=== PATIENT | female | born 1940 | race Caucasian/White ===

== ENCOUNTER 2018-08-24 08:32 | Day surgery (SDC) | payer MEDICARE, OTHER ==
[~2018-08-24] VITALS: Ht 167.6 cm; Wt 97.5 kg
[~2018-08-24 08:32] MED LIST: COL-RITE100 MG PO; COUMADIN7.5 MG PO; ENOXAPARIN100 MG/1 M SUB-Q; FOLTANX TABLET1 EACH PO; FUROSEMIDE80 MG PO; HYDROCODON-ACE1 EA11 PO; IRON159 MG PO; MIRALAX17 GM PO; OXYCODONE HCL5 MG PO; POTASSIUM CHLO20 ME1 PO; VITAMIN C500 M1 PO; VITAMIN D-32000 UNI1 PO; XARELTO10 MG PO
[2018-08-24] MEDS ORDERED: COUMADIN4 MG PO (08:54)
[2018-08-24] MEDS ORDERED: FOLTANX TABLET1 EACH PO (08:57)
--- NOTE | 2018-08-24 10:55 | NUR ---
08/24/18 1055 Joanna Delatorre 1037- PT ARRIVES TO PACU ALERT. PT REPORTS NO PAIN OR NAUSEA. RESP EVEN AND UNLABORED. OXYGEN SAT HIGH 90'S ON 3L VIA NC. 1039- OXYGEN TURNED OFF. OXYGEN SAT MID TO HIGH 90'S ON RA. 1042- PT SITITNG UP IN BED DRINKING WATER. TOELRATING WELL. 1046- DR. REES AT THE BEDSIDE TO TALK WITH THE PT.
--- NOTE | 2018-08-25 11:06 | OR ---
[facility] [address] [place], [place] [address] Signed DATE OF OPERATION: 08/24/2018 SURGEON: Demetri Rees MD PREOPERATIVE DIAGNOSIS: Persistent episodic diarrhea without bleeding. POSTOPERATIVE DIAGNOSES: 1. Mild proctitis. 2. Extensive diverticulosis. PROCEDURE: Total colonoscopy to cecum with biopsy of rectum. ANESTHESIA: Intravenous sedation, fentanyl 100 mcg, Versed 6 mg. Preoperative medication also Ancef 2 g. INDICATION: This 77-year-old white woman is a patient Dr. Georges Chong, last seen in 2003 for colonoscopy. She now has diarrhea without associated bleeding. She has several family members who had recent illness. She has no family history of colon cancer. She does have bilateral knee replacement with episodic swelling. She has been given preoperative antibiotics, Ancef. Additionally, she is on Coumadin for recurrent deep venous thrombosis and bridge therapy has been initiated. She understands the risks of bleeding, infection, and perforation related to colonoscopy and wished to proceed. FINDINGS: The prep was good. Complete colonoscopy was undertaken of the cecum. Passage through the sigmoid was challenging on the basis of extensive diverticulosis, but ultimately was accomplished. Intubation of the cecum was accomplished. There was no sign of polyps, but numerous diverticulitis noted as well as mild proctitis. Biopsy of the rectum was obtained. DESCRIPTION OF PROCEDURE: The patient was brought to the endoscopy suite and placed in lateral decubitus position given intravenous sedation to the point of slurred speech and nystagmus. Digital rectal examination was normal. An Olympus video colonoscope was passed in the rectum and manipulated throughout the Electronically Signed By: DEMETRI REES MD 08/25/18 1106 PATIENT NAME: SILAS HAWK OPERATIVE REPORT DATE OF : 38 REPORT #: [id number] PHYSICIAN: DEMETRI REES MD PCP: GEORGES CHONG MD REPORT IS CONFIDENTIAL AND NOT TO BE RELEASED WITHOUT AUTHORIZATION [facility] [address] [place], [place] [address] Signed colon ultimately intubating the cecum, passed to the sigmoid and left colon was lengthy and challenging on the basis of the diverticulosis. Diverticula were extensive. The scope was withdrawn from the cecum and examination throughout showed no sign of abnormality other than the diverticula until the rectum where mild proctitis was noted. Biopsy was obtained and she does have diarrhea. The scope was withdrawn and removed, and the patient was taken to recovery room in good condition. CONCLUDING DIAGNOSES: 1. Mild proctitis. 2. Diverticulosis. PLAN: Recommend Citrucel 1 tablespoon each day. She will call if persistent symptoms occur or unexpected findings on biopsy are noted. She will otherwise return to the ongoing care of Dr. Chong. MD DIONTE Blanca/VEGA /[id number] cc: Georges Chong MD Copies: GEORGES CHONG MD ~ Electronically Signed By: DEMETRI REES MD 08/25/18 1106 PATIENT NAME: SILAS HAWK OPERATIVE REPORT DATE OF : 38 REPORT #: [id number] PHYSICIAN: DEMETRI REES MD PCP: GEORGES CHONG MD REPORT IS CONFIDENTIAL AND NOT TO BE RELEASED WITHOUT AUTHORIZATION
== END 2018-08-24 11:37 | disposition home or self-care (01) ==
LOC: DS 08:32 → OPS 08:32 → DS 10:30 → OPS 11:37
PROVIDERS: Surgery
PROC: 0DBP8ZX Excision of Rectum, Via Natural or Artificial Opening Endoscopic, Diagnostic (ICD-10-PCS; principal; 2018-08-24 10:30)
DX: K52.9 Noninfective gastroenteritis and colitis, unspecified (principal); K62.89 Other specified diseases of anus and rectum; K57.30 Diverticulosis of large intestine without perforation or abscess without bleeding; E03.9 Hypothyroidism, unspecified; Z79.01 Long term (current) use of anticoagulants; Z79.899 Other long term (current) drug therapy; Z96.653 Presence of artificial knee joint, bilateral
CPT/HCPCS: 88305; 99153; G0500; J0690; J2250; J3010; J7120

== ENCOUNTER 2019-04-06 11:03 | Inpatient (IN) | payer MEDICARE, OTHER ==
[~2019-04-06] VITALS: Ht 167.6 cm; Wt 77.1 kg
--- NOTE | ~2019-04-06 | OR ---
[facility] [address] [facility] [place], [place] [address] Draft DATE OF OPERATION: 04/12/2019 SURGEON: Demetri Rees MD PREOPERATIVE DIAGNOSES: 1. Need for central venous access for TPN. 2. Coagulopathy, elevated ProTime. 3. Severe malnutrition. POSTOPERATIVE DIAGNOSES: 1. Need for central venous access for TPN. 2. Coagulopathy, elevated ProTime. 3. Severe malnutrition. PROCEDURE PERFORMED: Right internal jugular central venous catheterization. ANESTHESIA: 1% lidocaine. 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 A plan for enteral tube feeding was scheduled when it was clear that this lesion is essentially infiltrating and obstructing the ileum which likely accounts for her many months of progressive inability to tolerate oral intake though she shows no sign of jewels bowel obstruction at this time. A plan for a caval filter placement is anticipated on Monday. She has profound nutritional compromise with a pre-albumin of 3.6. She is noted to have persistently elevated ProTime from her prior Coumadin dosing not reversing with withdrawal of the Coumadin. Certainly, because of her underlying malnutrition and lack of development of K-dependent clotting factors. A central venous catheterization is anticipated since there is no availability of a PICC line peripherally. Given her profound anticoagulation, an internal jugular approach is planned. The catheter almost certainly can be used for access for a caval filter which is anticipated on Monday (today is Monday). The risks of bleeding, infection, other unforeseen complications were reviewed with her. She understands and wished to proceed. FINDINGS: Easy access to the right internal jugular vein was noted. Catheter was placed without problem with good function. A postprocedure chest x-ray is pending. PATIENT NAME: SILAS HAWK OPERATIVE REPORT DATE OF : 39 REPORT #: [id number] PHYSICIAN: DEMETRI REES MD PCP: GEORGES CHONG MD REPORT IS CONFIDENTIAL AND NOT TO BE RELEASED WITHOUT AUTHORIZATION [facility] [address] [place], [place] [address] Draft DESCRIPTION OF PROCEDURE: The patient was placed in supine position. Head turned to the left. The right neck prepared with a chlorhexidine solution and draped sterilely. With sterile conditions per hospital protocol, a 1% lidocaine was injected over the right sternocleidomastoid muscle. Using the Seldinger technique, the right internal jugular vein was easily accessed on the 1st pass showing dark nonpulsatile blood. A flexible J-wire was passed down the needle and needle was removed. The site was incised with an #11 blade and dilated with a balloon dilator and a single lumen 7-Greenlandic catheter passed over the wire and the wire removed. Aspiration on the catheter showed dark nonpulsatile blood. It was flushed thereafter with saline. A tubing connector was applied after securing the hub of the catheter with the enclosed nylon suture. A SorbaView dressing was then applied. Clave devices were applied to the tubing and aspiration of dark nonpulsatile blood was noted and easy flushing with saline. A chest x-ray is pending. She tolerated the procedure well. BLOOD LOSS: Minimal. MD DIONTE Balnca/MODL /[id number] cc: Georges Chong MD Copies: GEORGES CHONG MD ~ PATIENT NAME: SILAS HAWK OPERATIVE REPORT DATE OF : 39 REPORT #: [id number] PHYSICIAN: DEMETRI REES MD PCP: GEORGES CHONG MD REPORT IS CONFIDENTIAL AND NOT TO BE RELEASED WITHOUT AUTHORIZATION
--- NOTE | ~2019-04-06 | DS ---
[facility] [address] [place], [place] [address] Draft ADMISSION DATE: 04/06/2019 DISCHARGE DATE: 04/14/2019 REASON FOR ADMISSION: Large pelvic mass, progressive general medical decline. HISTORY OF PRESENT ILLNESS: This 78-year-old white woman presented to the emergency room on April 06, 2019, with 3 weeks of progressive fatigue. It was probably 4 months of progressive the fatigue actually. The patient has had a distant history of deep venous thrombosis and has been chronically anticoagulated with Coumadin. The patient suffered a syncopal episode several weeks ago and broke her femur just above the right knee prosthesis. She was noted also to have some rectal bleeding and anemia. She was transferred to [facility] from [facility] as there was no orthopedic coverage at that time. She has had bilateral knee replacements by Dr. Harsh Herrera. At the time of her presentation to [place], she had noted some gastrointestinal bleeding and certainly some anemia. She required 4 units of packed red cells anticipating repair of the femur. She underwent upper endoscopy by Dr. Royce Alejo showing some healed gastric erosions and a PillCam was then performed, ultimately showing inflammatory changes of the terminal ileum with ulcerations. Colonoscopy was recommended. She returned to [place], transferred to the [facility] for approximately 4 weeks. An outpatient colonoscopy was anticipated. However, she had poor oral intake and unable to tolerate a bowel prep and colonoscopy was never performed. The indication of the colonoscopy was to assess the terminal ileum. She is noted to have had colonoscopy by me in August of this year, which showed only profound diverticulosis and mild inflammation of the rectum. Her presentation to the emergency room at this time was for progressive weakness, poor oral intake, and occasional dark stools, but no actual blood per rectum. She has intermittent nausea and anorexia and occasions of diarrhea, but not profound. Her lab studies were reasonably normal in the emergency room, but unexpected was a CT scan of the abdomen and pelvis, which showed a very large tumor, likely related to the right ovary. Notably, she has had hysterectomy in the distant past (1970s). Additionally, she was noted to have a single hepatic metastasis to the right lobe of the liver and other intraabdominal metastatic lesions including the right periportal area. She was admitted for further evaluation and care. PERTINENT PHYSICAL EXAMINATION: GENERAL: Showed an obese white woman, who is alert and oriented and well supported by family members. PATIENT NAME: SILAS HAWK DISCHARGE SUMMARY DATE OF : 38 REPORT #: [id number] PHYSICIAN: DEMETRI REES MD PCP: GEORGES DORANTES MD REPORT IS CONFIDENTIAL AND NOT TO BE RELEASED WITHOUT AUTHORIZATION [facility] [address] [place], [place] [address] Draft VITAL SIGNS: Temperature 97.7, pulse 80, blood pressure 122/46, and room air saturation 96%. NECK: Shows no jugular venous distention. There is no thyromegaly or cervical adenopathy. CHEST: Clear. HEART: Regular without murmur. ABDOMEN: Obese. There was no initial palpable mass noted, but ultimately a right lower abdominal vague mass is noted. She has no ascites. EXTREMITIES: Lower extremities show obesity, but no sign of swelling. No erythema. She had no tenderness in the right groin and calf. LABORATORY DATA: Lab studies at admission showed a white count of 9.2, hematocrit of 38.0, platelets of 456,000. Potassium 3.5 and creatinine of 0.57. Liver enzymes normal. Urinalysis with protein of 30 and trace ketones. ProTime was 31.8 with an INR of 2.6 (therapeutic anticoagulation with Coumadin). HOSPITAL COURSE: She was admitted given intravenous fluids for clinical dehydration and had much improvement of her sense of well-being. Urine output was good as well. Review of the CT scan confirmed in addition to the pelvic mass and bilateral iliac vein thrombosis. Notably, this was while on anticoagulation with Coumadin. She had no shortness of breath or signs of pulmonary embolism. Given her malignant appearing lesion of the pelvis and metastatic disease, tumor markers were obtained, which showed an elevated CA-125 of 473.5 and elevated CEA 47.44 and normal AFP. Duplex ultrasound was performed confirming iliac vein thrombosis as well as bilateral femoral vein thrombosis. Though she was able to tolerate oral intake, she had a very poor appetite overall. Her pre-albumin was obtained, which was only 3.6 indicating marked nutritional deficiency. Coumadin was withheld anticipating a natural drift to a normal INR. She was given heparin subcutaneously to diminish chances of progression of her thrombosis. It is notable that her ProTime did not return to normal despite withdrawal of her Coumadin, likely indicative of her underlying nutritional deficiencies. A plan was outlined to provide for definitive resection of the mass, tumor debulking under the probability this represents an ovarian carcinoma to allow for optimal debulking and ultimately palliative chemotherapy. The patient and her family were strongly interested in doing whatever is possible to prolong useful life and improve her overall clinical situation mindful that it is not a curable situation particularly. PATIENT NAME: SILAS HAWK DISCHARGE SUMMARY DATE OF : 38 REPORT #: [id number] PHYSICIAN: DEMETRI REES MD PCP: GEORGES DORANTES MD REPORT IS CONFIDENTIAL AND NOT TO BE RELEASED WITHOUT AUTHORIZATION [facility] [address] [place], [place] [address] Draft Consultation was undertaken at [facility] in [facility] with Dr. Palacios, who concurred that placement of a vena cava filter may be of benefit. As the patient is ambulatory, an outpatient procedure was deemed possible. The patient was largely intolerant of adequate oral intake and was maintained in hospitalization anticipating outpatient caval filter placement on Monday, April 15, as had been coordinated with Dr. Hurd scheduling this (fax #[phone]). On that basis, she was maintained in hospitalization with TPN. Reversal of her anticoagulation related to her previous Coumadin dosing was accomplished to an INR of 1.1 (normal) with intravenous vitamin K 10 mg. She was transitioned prior to reversal with therapeutic Lovenox 1 mg/kg subcutaneously every 12 hours. At discharge, her plan is as follows. 1. TPN will be tapered to essentially nothing at midnight. 2. She will be given her Lovenox as scheduled today. 3. She will be n.p.o. after midnight. 4. Her right internal jugular catheter will be hep-locked and available for use by the interventional radiologist if desired tomorrow at caval filter placement. 5. She will continue to eat as able up to midnight. 6. She will transition to a swing bed status today and return tomorrow to the hospital for additional nutritional resuscitation and rehabilitation as needed including physical therapy to diminish her deconditioning and improve her ultimately for operation. 7. Upon return following caval filter placement, we will be considered for ongoing TPN and transitioning to enteral tube feeding to supplement her oral intake, which is inadequate. This might include the placement of a PEG tube to allow for discharge and outpatient management. 8. It is noted that a GI contrast CT was performed 2 days ago, which confirmed the right lower abdominal dominant mass to likely be ovarian, but is contiguous with the terminal ileum and not completely occlusive of it. On that basis, enteral tube feeds may be elemental. It is somewhat unlikely that this represents anything other than an ovarian cancer, though the unlikely possibility of a carcinoid tumor has been considered and a chromogranin A serum blood test is pending. In such a case, resection would still be necessary of course. DISCHARGE DIAGNOSES: 1. Significant clinical dehydration (acute and chronic). 2. Profound nutritional deficiency (prealbumin 3.6). 3. 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 4. Obesity. 5. History of bilateral knee replacement with subsequent right distal femur fracture, PATIENT NAME: SILAS HAWK DISCHARGE SUMMARY DATE OF : 38 REPORT #: [id number] PHYSICIAN: DEMETRI REES MD PCP: GEORGES DORANTES MD REPORT IS CONFIDENTIAL AND NOT TO BE RELEASED WITHOUT AUTHORIZATION [facility] [address] [place], [place] [address] Draft status post repair at [facility] in [place] in 2019. 6. Recurrent deep venous thrombosis with chronic anticoagulation. Subsequent development of extensive iliac and femoral venous thrombosis without known pulmonary embolism while anticoagulated with Coumadin. MD DIONTE Blanca/MODL /[id number] cc: [facility] MD Deon Nova MD Jonathan Hitzman, MD Copies: PRETTY HERRERA MD, KIRK PITEO, BRIAN DO HITZMAN, JONATHAN MD ~ PATIENT NAME: SILAS HAWK DISCHARGE SUMMARY DATE OF : 38 REPORT #: [id number] PHYSICIAN: DEMETRI REES MD PCP: GEORGES DORANTES MD REPORT IS CONFIDENTIAL AND NOT TO BE RELEASED WITHOUT AUTHORIZATION
[~2019-04-06 11:03] MED LIST changes: +COUMADIN4 MG PO; +FERROUS SULFAT325 MG PO; +PANTOPRAZOLE SO40 MG PO; +WARFARIN SODIUM1 MG PO
--- NOTE | 2019-04-06 17:21 | NUR ---
REPORT RECEIVED FROM JOHN HERNANDEZ. PT ARRIVED TO ROOM 123. PT ALERT AND ORIENTED, VS'S TAKEN. PT DENIES PAIN, SOB AT REST OR NAUSEA. PT ASSESSMENT COMPLETED. CALL LIGHT AND H2O IN REACH. PT DENIES FURTHER NEEDS OR CONCERNS.
--- NOTE | 2019-04-06 22:23 | NUR ---
No c/o pain, L leg warm to touch, pulse strong. Coop with assessment. fluids and call light at bedside
--- NOTE | 2019-04-07 06:10 | HP ---
[facility] [address] [place], [place] [address] Signed ADMISSION DATE: 04/06/2019 REASON FOR ADMISSION: Dehydration, large pelvic mass, and hepatic lesion. HISTORY OF PRESENT ILLNESS: This 78-year-old white woman is well known to me from the past. She last underwent colonoscopy by me in August (August 24, 2018), for episodic diarrhea without bleeding. She was noted to have mild proctitis and extensive diverticulosis. The prep at that time was quite good. Passage to the sigmoid was challenging on the basis of extensive diverticulosis, but it was accomplished and intubation of the cecum was accomplished. There was no evidence of polyps or neoplasm. Since that time, patient has had an episode of syncope resulting in a fall and injury to her left knee, having had right knee replaced in the past by Dr. Harsh Herrera. She [facility] in the [facility] for quite [facility] locally, ultimately being able to be discharged, but having rather poor oral intake, generally speaking. Her primary provider remains Dr. Georges Chong. Her presentation to the emergency room was with increasing weakness, history of apparent gastrointestinal bleeding and a fall previously noted, which was a femoral fracture repaired at [facility]. She notes that her weakness had been increasing since her discharge from the hospital previously. Her appetite had been considered very poor. Prior to her operative repair of her femur fracture in [place], she underwent upper endoscopy by Dr. Ward where she was found to have two healing ulcers. She has been on an iron supplement. A PillCam was taken and findings were uncertain as regards the colon. There was something suspicious enough issue that a colonoscopy was planned. The colonoscopy was not carried out due to patient's inability to tolerate oral bowel prep, however. Her evaluation today included a CT scan of the abdomen and pelvis as her labs were relatively unremarkable. 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 Notably, however, she has had hysterectomy back in the 1970s (Dr. Joseph Kevin). Upon review of her CT scan that I have seen, the amorphous pelvic mass is suggestive of uterus, but with close inspection, shows no cervical component and there is a calcific abnormality in the midportion of it. It is unknown if the PillCam that had been given was actually passed out or could this represent that. The coronal view confirms a relatively large right liver lobe mass with smooth borders, but possible central necrosis. There is no other sign of metastatic lesion to the liver in anyway. The pelvic mass upon review appears to be at the apex of the rectosigmoid, not emanating from within the bowel so far as can be told. There was Electronically Signed By: DEMETRI REES MD 04/07/19 0610 PATIENT NAME: SILAS HAWK HISTORY AND PHYSICAL DATE OF : 38 REPORT #: [id number] PHYSICIAN: DEMETRI REES MD PCP: GEORGES CHONG MD REPORT IS CONFIDENTIAL AND NOT TO BE RELEASED WITHOUT AUTHORIZATION [facility] [address] [place], [place] [address] Signed a fair amount of stool in the rectum that is noted. The interpretation of the CT scan was that of left para-aortic metastatic lymphadenopathy, similar such nodules throughout the abdominal mesentery and peritoneum consistent with metastatic disease, mild right hydroureteronephrosis extending to a large pelvic mass. The lobulated mass is 9.1 cm and in the expected location of the uterus and contiguous with the inferior aspect of the cecum, thought to be either part of a cecal colon cancer or large uterine cancer. Compression of the right external iliac vein is noted and possible femoral vein thrombosis, though not certain. Carcinomatosis is considered likely, given peritoneal findings. At present, patient feels bloated with fullness and without appetite accounting this for her weight loss of more than 50 pounds in the past year. REVIEW OF SYSTEMS: She denies any shortness of breath or chest pain. She is not having pelvic pain, but pelvic fullness. She denies any shortness of breath, but she is somewhat weak. PHYSICAL EXAMINATION: GENERAL: Pleasant white woman looking older than her stated age. She is accompanied by her , son, and other family members. HEENT: Trachea is midline. Mucous membranes are slightly dry. CHEST: Normal respiratory excursion without tachypnea. HEART: Regular without murmur. ABDOMEN: Quite markedly obese as has been the case over many years. She has no clinical evidence of ascites. EXTREMITIES: Show no clubbing, cyanosis, or edema. I do not see stigmata of deep venous thrombosis at this time. LABORATORY STUDIES: Show a white count of 9.2, hematocrit 38, platelets 456,000. Chem profile with a potassium of 3.3, and bilirubin of 0.5. Troponin is less than 0.010. Coag studies showed an INR of 2.3. Urinalysis is abnormal with a urine white cell 15, squames 3+. ASSESSMENT: A large pelvic mass, which was initially interpreted as possibly uterine carcinoma. It is quite unlikely, considered she did have hysterectomy a number of years ago. The possibility of ovarian carcinoma of course remains. The possibility this represents a colonic lesion, though possible, is somewhat unlikely, considering colonoscopy was performed in August, which showed only the diverticular process. Notable is the large right lobe hepatic mass and of course problematic possible peritoneal manifestations of malignancy including carcinomatosis. Electronically Signed By: DEMETRI REES MD 04/07/19 0610 PATIENT NAME: SILAS HAWK HISTORY AND PHYSICAL DATE OF : 38 REPORT #: [id number] PHYSICIAN: DEMETRI REES MD PCP: GEORGES CHONG MD REPORT IS CONFIDENTIAL AND NOT TO BE RELEASED WITHOUT AUTHORIZATION [facility] [address] [place] [facility] [place] [address] Signed As she is clinically dehydrated, I have agreed to admit her to the hospital for rehydration and further testing. This might include a colonoscopy, however, tumor markers may be of great benefit prior to embarking on that undertaking including CA-125, AFP and CEA levels. As she does have elevated white cells in the urine, we will treat "as if" for urinary tract infection as well. I have conferred with Dr. Cox on all of this. Rather than aggressively reverse her anticoagulation, particularly in light of possible iliac vein thrombosis, which is not as of yet proven, we will allow natural drift of her ProTime for the time being. MD DIONTE Blanca/MIKEYL /[id number] cc: MD Dr. James Leija MD Copies: GEORGES CHONG MD, BRIAN DO ~ Electronically Signed By: DEMETRI REES MD 04/07/19 0610 PATIENT NAME: MERRY HAWKINE HISTORY AND PHYSICAL DATE OF : 38 REPORT #: [id number] PHYSICIAN: DEMETRI REES MD PCP: GEORGES CHONG MD REPORT IS CONFIDENTIAL AND NOT TO BE RELEASED WITHOUT AUTHORIZATION
--- NOTE | 2019-04-07 06:50 | NUR ---
up to br, voided and had a formed medium sized bm. Back to bed. Tolerated well, good cms L leg, elevated w pillow. dry non productive cough present at this time, tolerating sips of water, no c/o pain
--- NOTE | 2019-04-07 07:30 | NUR ---
REPORT RECEIVED FROM JOHN GILLETTE. PT RESTING IN BED WITH EYES CLOSED. RESPIRATIONS EVEN AND UNLABORED. BED RAILS UP. CALL LIGHT WITHIN REACH.
--- NOTE | 2019-04-07 08:50 | NUR ---
PATIENT RESTING IN BED. SON IN ROOM. CLEANED FACE AND HANDS. PATIENT MAYBE TAKES A SHOWER LATER. CALL LIGHT WITHIN REACH. NO OTHER NEEDS AT THIS TIME
--- NOTE | 2019-04-07 08:57 | NUR ---
PATIENT RESTING IN BED. PATIENT'S BREAKFAST ORDERED (CLEAR LIQUIDS TRAY). CLEAR ENSURE GIVEN. SON IN ROOM. CALL LIGHT WITHIN REACH. NO OTHER NEEDS AT THIS TIME
--- NOTE | 2019-04-07 09:23 | NUR ---
PATIENT RESTING IN BED. VITAL SIGNS AND I&O DONE. CALL LIGHT WITHIN REACH. NO OTHER NEEDS AT THIS TIME
--- NOTE | 2019-04-07 09:25 | NUR ---
MORNING ASSESSMENT AND MEDICATIONS DUE. PT RESTING IN BED VISITING WITH FAMILY. PT DENIES PAIN BUT REPORTS NAUSEA, SEE MAR FOR MEDICATION GIVEN. ASSESSMENT DONE. PT CONTINUES TO REPORT WEAKNESS. CLEAR ENSURE OFFERED. PT STATES SHE TOOK A SIP AND "ALMOST LOST IT ALL." PT REPORTS NAUSEA EVEN WITH DRINKING WATER. ALTERNATE FLAVOR OF CLEAR ENSURE PROVIDED. PT UPDATED ON PLAN OF CARE. FLU VACCINE GIVEN. PT WATCHING TV AND VISITNG WITH FAMILY. SHOWER OFFERED, PT STATES "MAYBE LATER TODAY." BED RAILS UP. CALL LIGHT WITHIN REACH. FAMILY AT BEDSIDE.
--- NOTE | 2019-04-07 09:38 | NUR ---
PATIENT RESTING IN BED. SON AND RN IN ROOM. VITAL SIGNS AND I&O DONE. CALL LIGHT WITHIN REACH. NO OTHER NEEDS AT THIS TIME
--- NOTE | 2019-04-07 09:49 | NUR ---
PTS SON JENNY REQUESTS TO SPEAK WITH THIS RN ONE ON ONE. JENNY STATES HE HAS CONCERNS FOR HIS MOTHER STATING "I THINK SHE IS REALLY DEPRESSED." JENNY STATE SHE HAS NOT MADE ANY SUICIDAL COMMENTS BUT HAS BEEN THOUGH [facility] RECIENT[facility] AND "PROBABLY NEEDS SOME MEDICATIONS." JENNY STATES HE WAS PLANNING TO TALK TO DR. DORANTES AT THEIR NEXT APPOINTMEN BUT WAS HOPING THIS ISSUE COULD BE ADDRESSED DURING PTS CURRENT HOSPITAL STAY. MD WILL BE UPDATED. PTS SON ALSO STATES THAT THE FAMILY IS "NERVOUS" WAITING TO HEAR "IF THE MASS IS CANCER OR JUST A BENIGN MASS." THERAPUTIC COMMUNICATION USED. MD TO BE UPDATED DURING ROUNDS. JENNY STATES HE IS GREATFUL FOR "OUR TIME" AND STATES ALL HIS QUESTIONS HAVE BEEN ANSWERED.
--- NOTE | 2019-04-07 11:34 | NUR ---
PT UP TO AMBULATE IN DON. PT ABLE TO AMBULATE FROM ROOM TO [facility] ROOM AND BACK TO ROOM. TOLERATED WELL BUT PT IS RELUCANT TO TRY WALKING FARTHER. PT UP TO CHAIR AT THIS TIME. FAMILY AT CHAIRSIDE. CALL LIGHT WITHIN REACH. WATER REFILLED. PT CONTINUES TO REPORT NAUSEA. WILL CONTINUE TO MONITOR.
--- NOTE | 2019-04-07 12:30 | NUR ---
REPORT GIVEN TO JOHN OWENS WHO WILL ASSUME CARE OF PT.
--- NOTE | 2019-04-07 12:43 | EKG ---
[facility] [address] [place], [place] [address] Signed Normal sinus rhythm Inferior infarct , age undetermined Abnormal ECG No previous ECGs available Confirmed by VILLA JOSE DO ([id number]) on 04/07/2019 12:43:44 PM Electronically Signed By: VILLA JOSE DO 04/07/19 1243 PATIENT NAME: SILAS HAWK Electrocardiogram DATE OF : 38 PHYSICIAN: VILLA JOSE DO REPORT #: [id number] REPORT IS CONFIDENTIAL AND NOT TO BE RELEASED WITHOUT AUTHORIZATION
--- NOTE | 2019-04-07 13:00 | NUR ---
PT LYING IN BED WATCHING TV AND VISITING WITH FAMILY. ALERT AND ORIENTED. DISCUSSED POC WITH PT AND FAMILY PRESENT IN ROOM, SON AND DAUGHTER. QUESTIONS ANSWERED. PT DENIES PAIN, NAUSEA, OR OTHER CONCERN AT THIS TIME. ASSESSMENT COMPLETED. CALL LIGHT WITHIN REACH.
--- NOTE | 2019-04-07 13:33 | NUR ---
PATIENT RESTING IN BED. FAMILY IN ROOM. VITAL SIGNS AND I&O DONE.PATIENT DID NOT VOID DURING THIS PERIOD EVEN WHEN SHE WAS ENCOURAGE TO USE THE TOILET. RN NOTIFIED. CALL LIGHT WITHIN REACH. NO OTHER NEEDS AT THIS TIME
--- NOTE | 2019-04-07 16:08 | NUR ---
PT SITTING IN BED AT THIS TIME, RESP EVEN AND NON LABORED. PT DENIES PAIN AND OR NEEDS AT THIS TIME. FAMILY AT BEDSIDE. PERSONAL SUPPLIES AND CALL LIGHT WITHIN REACH.
--- NOTE | 2019-04-07 17:22 | NUR ---
PATIENT RESTING IN BED. VITAL SIGNS AND I&O DONE. CALL LIGHT WITHIN REACH. NO OTHER NEEDS AT THIS TIME
--- NOTE | 2019-04-07 17:42 | NUR ---
PT A&OX3. ON RA. CLEAR LIQ; ENCOURAGE ENSURES-DOESN'T LIKE THEM! 1PA WITH WALKER. D5LR@85. NO SCD'S. DENIES PAIN. +BLOOD IN STOOL. CALLS STAFF APROP.
--- NOTE | 2019-04-07 19:31 | NUR ---
REPORT RECEIVED, PT RESTING IN BED, EYES CLOSED, BREATHS EVEN, UNLABORED, NO NEEDS AT THIS TIME, CALL LIGHT WITHIN REACH.
--- NOTE | 2019-04-07 20:34 | NUR ---
PT ASSISTED TO BATHROOM, 1 PERSON SBA/FWW, TOLERATED WELL. PT WAS INCONTINENT OF SMALL SMEAR, STOOL BLACK/GREEN, PT DENIES ANY LIGHT HEADEDNESS OR DIZZINESS WITH AMBULATION, NO STOMACH DISCOMFORT, PT BACK TO BED, NO C/O PAIN, VSS, I/O COMPLETE, IV FLUIDS INFUSING PER EMAR WNL. FAMILY RESTING IN BED, CALL LIGHT WITHIN REACH.
--- NOTE | 2019-04-07 21:00 | NUR ---
PT RESTING IN BED, ON RA, NO NEEDS AT THIS TIME, WILL RETURN WITH EVENING MEDS, CALL LIGHT WITHIN REACH. IV FLUIDS INFUSING PER EMAR WNL.
--- NOTE | 2019-04-07 22:22 | NUR ---
PT'S IV NOTED TO BE LEAKING, NEW PIV STARTED IN PT'S LATERAL LAC, 20G, PT TOLERATED WELL, GOOD BLOOD RETURN, FLUSHES WELL, CONTINUOUS FLUIDS INFUSING PER EMAR WNL. SCHEDULED MEDS ADMININSTERED, PT RESTING IN BED, ASSESSMENT COMPLETE, LS CLEAR, PT AOX4, PT DENIES ANY PAIN, DENIES NAUSEA, PULSES FELT, PT DENIES ANY NEEDS AT THIS TIME, CALL LIGHT WITHIN REACH. FALL PRECAUTIONS IN PLACE.
--- NOTE | 2019-04-08 02:37 | NUR ---
PT RESTING IN BED, WATCHING TV, NO NEEDS AT THIS TIME, ASSESSMENT COMPLETE, CALL LIGHT WITHIN REACH. FALL PRECAUTIONS IN PLACE. IV FLUIDS INFUSING PER EMAR WNL.
--- NOTE | 2019-04-08 05:00 | NUR ---
PT AOX4, APPROPRIATE, NO C/O PAIN, VSS, ON RA, 1 PERSON SBA/FWW, PT VOIDING WELL. IV FLUIDS INFUSING PER EMAR WNL. PT USES CALL LIGHT APPROPRIATELY. PT RESTED SOME THIS SHIFT, PT INCONTINENT OF SMALL AMOUNT OF STOOL. CLEAR LIQUID DIET, ENCOURAGE CLEAR ENSURES,
--- NOTE | 2019-04-08 06:27 | NUR ---
PT UP TO BATHROOM WITH ASSISTANCE FROM [place] OCT[facility]ER, PT BACK TO BED, SCHEDULED ABX GIVEN, PT C/O NAUSEA, PRN ZOFRAN GIVEN PER EMAR, PT REMAINS RESTING IN BED, NO ACTIVE EMESIS, IV FLUIDS INFUSING PER EMAR WNL. PT'S FAMILY AT BEDSIDE. NO FURTHER NEEDS AT THIS TIME, CALL LIGHT WITHIN REACH. FALL PRECAUTIONS IN PLACE.
--- NOTE | 2019-04-08 07:32 | NUR ---
PT SITTING IN BED AWAKE AT THIS TIME. PT ON RA, RESP EVEN AND NON LABORED. PERSONAL SUPPLIES AND CALL LIGHT WITHIN REACH. NO NEEDS AT THIS TIME.
--- NOTE | 2019-04-08 10:25 | NUR ---
PT STILL SITTING IN BED VISITING WITH FAMILY. PT DENIES PAIN OR NEEDS. IV FLUIDS INFUSING AT THIS TIME. PERSONAL SUPPLIES AND CALL LIGHT WITHIN REACH. NO NEEDS AT THIS TIME.
[2019-04-08] MEDS ORDERED: COUMADIN2.5 MG PO (12:13)
[2019-04-08] MEDS ORDERED: VITAMIN C250 MG PO (14:01)
--- NOTE | 2019-04-08 14:03 | NUR ---
Medications reconciled using pharmacy records and patient interview
--- NOTE | 2019-04-08 14:32 | NUR ---
PATIENT IN BED WATCHING TV, FAMILY IN ROOM. CALL LIGHT IN REACH. NO FURTHER NEEDS AT THIS TIME.
--- NOTE | 2019-04-08 16:08 | NUR ---
DR. REES IN TO SEE PT AT THIS TIME TIME. DR. REES DISCUSSED WITH PT PLAN OF CARE GOING FORWARD. TODAY BILAT US TO BE DONE TO R/O POSSIBILITY OF DVT(S). PT RECEPTIVE TO THIS PLAN. PT AND FAMILY MEMBERS QUESTIONS ANSWERED BY DR. REES RELATED TO CURRENT POSSIBLE CONDITION, PROGNOSIS AND PLAN.
--- NOTE | 2019-04-08 17:47 | NUR ---
A&OX3. ON RA. 1PA WITH LEONARD MARQUES DIET- ENCOURAGE ENSURES. D5LR@85. PT DENIES PAIN. CALLS APPROP.
--- NOTE | 2019-04-08 18:34 | NUR ---
PATIENT IN BED, FAMILY IN ROOM. CALL LIGHT IN REACH. NO FURTHER NEEDS AT THIS TIME.
--- NOTE | 2019-04-08 19:35 | NUR ---
BEDSIDE REPORT RECEIVED FROM JOHN HERNANDEZ. PT EMOTIONAL. FAMILY IN ROOM. QUESTIONS ANSWERED. IVF INFUSING WNL ORDERED. CALL LIGHT IN REACH. NO REQUESTS AT THIS TIME.
--- NOTE | 2019-04-08 21:17 | NUR ---
PT ASSESSMENT COMPLETE. 1PA TO RESTROOM FOR VOID AND SMALL SMEAR DARK STOOL. URGENCY, INCONTINENT IN ATTENDS. IV FLUSHED WNL, IVF INFUSING ORDERED. PT DENIES PAIN. LUNG SOUNDS CLEAR THROUGHOUT ALL LOBES. HR IRREGULAR RHYTHM. PT DENIES SOB, DENIES CHEST PAIN. CALL LIGHT AND PERSONAL SUPPLIES IN REACH.
--- NOTE | 2019-04-08 23:10 | NUR ---
CHECKED ON PT RESTING IN BED WITH EYES CLOSED. BREATHING EQUAL AND UNLABORED. IVF INFUSING WNL ORDERED. LIGHTS OFF IN ROOM.
--- NOTE | 2019-04-09 00:17 | NUR ---
1 PA TO THE BATHROOM AND BACK TO BED USING WALKER. CALL LIGHT IN REACH.
--- NOTE | 2019-04-09 01:10 | NUR ---
PT RESTING IN BED WITH EYES CLOSED. BREATHING EQUAL AND UNLABORED. LIGHTS OFF IN ROOM. CALL LIGHT IN REACH.
--- NOTE | 2019-04-09 03:10 | NUR ---
CHECKED ON PT. RESTING IN BED WITH EYES CLOSED. BREATHING EQUAL AND UNLABORED. RR 18. LIGHTS OFF IN ROOM. CALL LIGHT IN REACH.
--- NOTE | 2019-04-09 03:30 | NUR ---
CALL LIGHT ANSWERED. 1PA WITH FWW FOR VOID AND SMALL BM. PT BACK IN BED. ICE WATER PROVIDED. ASSESSMENT COMPLETE. CSM INTACT BLE, TRACE EDEMA BLE. PT DENIES ANY PAIN IN LEGS, DENIES SOB AND CHEST PAIN. IVF INFUSING WNL ORDERED. CALL LIGHT IN REACH.
--- NOTE | 2019-04-09 05:08 | NUR ---
PT EMOTIONAL AT START OF SHIFT, FAMILY PRESENT IN ROOM. NO PAIN NOTED IN BLE, DENIES SOB, DENIES CHEST PAIN. SENSATION INTACT BLE, TRACE EDEMA BLE. VSS. 1P SBA WITH FWW TO RESTROOM FOR VOIDS, DARK STOOLS. ON RA. USING CALL LIGHT APPROPRIATELY.
--- NOTE | 2019-04-09 06:18 | NUR ---
IN PT ROOM FOR SCHEDULED MEDICATION ADMINISTRATION. PT RESTING IN BED AWAKE. DENIES PAIN. VSS. IV ANTIBIOTIC AND IVF INFUSING WNL ORDERED. CALL LIGHT IN REACH. ICE WATER PROVIDED. PT REFUSES ENSURE AT THIS TIME.
--- NOTE | 2019-04-09 07:36 | NUR ---
PT IN BED, EYES CLOSED, RESP EVEN AND NON LABORED. PT APPEARS COMFORTABLE, NO DISTRESS NOTED. PERSONAL SUPPLIES AND CALL LIGHT WITHIN REACH. NO NEEDS AT THIS TIME.
--- NOTE | 2019-04-09 08:05 | NUR ---
PATIENT UP TO CHAIR FOR BREAKFAST, 1PA FWW.
--- NOTE | 2019-04-09 10:42 | NUR ---
PATIENT IS SIPPING SLOWLY ON FLUIDS.
--- NOTE | 2019-04-09 12:19 | NUR ---
FAMILY IN ROOM VISITING WITH PT AT THIS TIME.
--- NOTE | 2019-04-09 12:50 | NUR ---
SPOKE WITH PATIENT IN ROOM. PRESENT ARE HER ADULT CHILDREN, LORENZA AND JENNY. 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 PATIENT IS TEARFUL WE DISCUSSED HER DIAGNOSIS. WHEN ASKED WHAT SHE WANTS, SHE STATES SHE IS WAITING FOR DR REES TO CALL SOME PEOPLE TO FIND OUT ABOUT A "CLOT FILTER". PATIENT DOES NOT WANT TO STAY AT THE RESIDENTIAL FACILITY AGAIN, WANTS TO GO HOME WHEN IT IS TIME. DAUGHTER IS WORKING ON GETTING AN OK FOR [employer] THROUGH HER EMPLOYER. PATIENTS HAS SOME DEMENTIA AND PATIENT IS WORRIED ABOUT HIM. FAMILY IS HELPING WITH THIS. PATIENT STATES "I'M NOT READY TO GO YET". DISCUSSED THAT SHE DOESN'T HAVE TO MAKE ANY DECISIONS AT THIS TIME. SHE DOES WANT TO GET POA FOR HER KIDS, AND HER DAUGHTER IS GOING TO OBTAIN FORMS. QUESTIONS ANSWERED. WILL CONTINUE TO FOLLOW.
--- NOTE | 2019-04-09 14:38 | NUR ---
PATIENT IN BED WATCHING TV. FAMILY IN ROOM. CALL LIGHT IN REACH. NO FURTHER NEEDS AT THIS TIME.
--- NOTE | 2019-04-09 18:19 | NUR ---
PT A&OX3. DENIES PAIN. ON RA. D5LR@85. CLEAR LIQ DIET; ENCOURAGE ENSURES. 1PA WITH WALKER TO BR. NO SCD'S. POTENTIAL TRANSFER TO [facility] FOR STENT PLACEMENT.
--- NOTE | 2019-04-09 18:30 | NUR ---
PATIENT IN BED WATCHING TV. FAMILY IN ROOM. CALL LIGHT IN REACH. NO FURTHER NEEDS AT THIS TIME.
--- NOTE | 2019-04-09 19:20 | NUR ---
BEDSIDE REPORT RECEIVED FROM JOHN MOREIRA. PT LYING IN BED, HOB ELEVATED. DENIES PAIN. IVF INFUSING WNL ORDERED. FAMILY IN ROOM. CALL LIGHT IN REACH. NO REQUESTS AT THIS TIME.
--- NOTE | 2019-04-09 21:05 | NUR ---
CALL LIGHT ANSWERED, 1PA TO RESTROOM WITH FWW FOR VOID, SMALL SMEAR BLACK LIQUID STOOL. ATTENDS CHANGED. PT BACK IN BED. ASSESSMENT COMPLETE. CSM WNL BLE. PT DENIES PAIN, DENIES SOB. IV FLUSHED WNL AND IVF INFUSING WNL ORDERED. PT WITH DIMINISHED APPETITE, REFUSING FOOD OFFERED, UNABLE TO EAT [employer]AMBURGER BROUGHT BY FAMILY. OUT PATIENT THERAPIST RN TO BRING FRUIT FOR PT. CALL LIGHT IN REACH.
--- NOTE | 2019-04-09 23:50 | NUR ---
CHECKED ON PT. RESTING IN BED WITH EYES CLOSED. RR 18. IVF INFUSING ORDERED. CALL LIGHT IN REACH.
--- NOTE | 2019-04-10 00:29 | NUR ---
CALL LIGHT ANSWERED. 1 PA TO THE BATHROOM USING WALKER AND BACK TO BED. ICE WATER REFILLED. CALL LIGHT IN REACH.
--- NOTE | 2019-04-10 02:33 | NUR ---
CHECKED ON PT. RESTING IN BED WITH EYES CLOSED. BREATHING EQUAL AND UNLABORED. LIGHTS OFF IN ROOM. CALL LIGHT IN REACH.
--- NOTE | 2019-04-10 06:00 | NUR ---
PT ASSESSMENT COMPLETE. VSS. PT DENIES PAIN IN LEGS, DENIES CHEST PAIN AND SOB. SBA WITH FWW TO RESTROOM FOR VOID AND BACK TO BED, SMEAR OF BLACK STOOL IN ATTENDS, CHANGED. PT GIVEN FRESH ICE WATER. DENIES OFFERED FOOD. CALL LIGHT IN REACH. IV ANTIBIOTIC AND IVF INFUSING WNL ORDERED.
--- NOTE | 2019-04-10 06:05 | NUR ---
PT RESTED WELL THIS SHIFT. SBA W FWW TO RESTROOM, QS VOIDS. CONSISTENT BLACK SMEARS OF STOOL IN ATTENDS, CHANGED THROUGHOUT SHIFT. DENIES PAIN IN LOWER EXTREMITIES, CHEST PAIN AND SOB. CSM INTACT BLE, TRACE EDEMA BILATERALLY. GENERALIZED WEAKNESS. IVF INFUSING WNL THROUGHOUT SHIFT. ADVANCED TO REGULAR DIET, ONLY EATING ONE BITE OF CHEESEBURGER. DENIES NAUSEA.
--- NOTE | 2019-04-10 07:58 | NUR ---
BEDSIDE REPORT RECIEVED FROM ROMEL LOPEZ. PT RESTING IN HER BED WITH NO COMPLAINS AT THIS TIME. CALL CORONA WITHIN REACH AND PT APPEARS IN NO DISTRESS.
--- NOTE | 2019-04-10 09:15 | NUR ---
PT WAS INCONT OF STOOL, PT CLEANED AND A FRESH ATTENDS PLACED. COCCYX RED AND SHE WAS TURNED OFF OF IT AND BARRIER CREAM WAS APPLIED. FINE CRACKLES IN THE BASES AND AN IS WAS GIVEN AND INSTRUCTED IN ITS USE, SHE DENIES ANY SOB. PT'S FEET WARM AND PINK AND SHE DENIES ANY PAIN OR NUMBNESS OR TINGLING IN THEM. CALL CJ SAHA.
--- NOTE | 2019-04-10 11:55 | NUR ---
PT ASSISTED TO THE HER CHAIR. SHE USED HER FWW AND A SBA WAS USED, PT APPEARED STEADY AND CONTINUES TO DENIE ANY SOB OR PAIN. PT NOW RESTING IN HER CHAIR AND IS VISITING WITH HER FAMILY.
--- NOTE | 2019-04-10 13:25 | NUR ---
CALL TO RETRIEVE DICTATED TRANSFER SUMMARY # [id number] FOR DR REES, ASKED FOR IT IT BE RUSHED. INFORMED IT IS BEING TRANSCRIBED WE SPEAK AND WILL BE AVAILABLE IN A FEW MINUTES #[id number].
--- NOTE | 2019-04-10 14:20 | NUR ---
PT CONTINUES TO DENIE ANY CP OR SOB WELL ANY OTHER PAIN. PULSES IN HER LEGS APPEARS STRONG AND EQUAL. APPITITE REMAINS VERY POOR AND SHE WAS ENCOUARGED TO EAT OF WHICH SHE IS NOT INTRESTED AND ALSO DECLINES AN ENSURE.
--- NOTE | 2019-04-10 14:33 | NUR ---
PT AMBULATED TO THE BR AND VOIDED A SMALL AMOUNT AND HAD A SMALL BM. SHE HAD SOME NAUSEA UPON RETURNING TO BED AND WAS MEDICATED, SEE EMAR. PT STATES THE NAUSEA IS QUICKLY RESOLVING.
--- NOTE | 2019-04-10 14:44 | NUR ---
DR REES CALLED AND NOTIFIED OF THE PT'S POOR URINE OUTPUT. NEW ORDER RECIEVED, SEE EMAR.
--- NOTE | 2019-04-10 16:36 | NUR ---
FAMILY RECIEVED PHONE CALL FROM [facility] [phone], AT DR BOTELLO'S OFFICE TO DISCUSS SCHEDULING A DATE AND TIME FOR CAVAL FILTER PLACEMENT. FAMILY AGREES TO MONDAY 08. THEY RECIEVED INSTRUCTION FROM [facility] TO ARRIVE AT 0730 TO HAVE LABS DRAWN BEFORE PROCEDURE. ALSO INSTRUCTED TO STOP WARFARIN MONDAY. CALL PLACED TO DR REES AND INFORMED HIM OF CALL AND PLANS. STATES PT WILL BE STAYING TONIGHT AND HE WILL ASSESS HER IN AM DUE TO LOW URINE OUTPUT TODAY. FAMILY AGREES TO PLANS.
--- NOTE | 2019-04-10 18:17 | NUR ---
PT WORKED WITH PHYSICAL THERAPY TODAY AND DENIES ANY PAIN WITH ACTIVITY OR EXERCISE. PT DID HAVE A BOUT OF NAUSEA FOLLOWING WALKING TO THE BR. SHE DENIES ANY SOB, CP OR PAIN IN HER ARMS OR LEGS THIS SHIFT. PT HAS EQUAL PULSES IN HER ARMS AND LEGS, THERE IS +2 LOWER LEG EDEMA NOTED. HER URINE OUTPUT WAS POOR THIS AM AND EARLY AFTERNOON, AN IV BOLUS WAS ORDERED AND GIVEN. HER URINE OUTPUT INCREASED FOLLOWING THE BOULS. PT HAS BEEN INCONT OF BOWELS AND URINE, ATTENDS IN PLACE. PT AMBUULATED AND WAS STEADY WITH A SBA AND THE USE OF A WALKER. PT REMAINS ON D5LR AT 85 ML/HR. HER APITITE REMAINS VERY POOR AND SHE DECLINES AN ENSURE.
--- NOTE | 2019-04-10 19:11 | NUR ---
IN ROOM FOR REPORT, PT IS AWAKE IN BED AND HAS MULTIPLE VISITORS IN THE ROOM AT THIS TIME. SHE DENIES NEEDS. IV IS INFUSING FINE AND CALL LIGHT IS WITHIN REACH.
--- NOTE | 2019-04-10 21:50 | NUR ---
IN ROOM TO ADMINISTER MEDICATIONS AND ASSESS PT. SHE DENIES ANY WARMTH OR PAIN IN LEGS. PT DISCUSSED HER CA DIAGNOSIS AND SADNESS ABOUT IT. SHE TALKED ABOUT HER FAMILY AND GREAT-GRANDBABY ON THE WAY THAT SHE WANTS TO MEET. D5LR IS INFUSING FINE AT 85MLS/HR. SHE HAS ICEWATER AT THE BEDSIDE AND DENIES FURTHER NEEDS. CALL LIGHT IS WITHIN REACH.
--- NOTE | 2019-04-10 23:55 | NUR ---
PT IS RESTING WITH EYES CLOSED, RR IS EVEN AND NONLABORED. CALL LIGHT IS WITHIN REACH AND IV IS INFUSING FINE.
--- NOTE | 2019-04-11 01:32 | NUR ---
PT IS RESTING WITH EYES CLOSED, RESPIRATIONS ARE EVEN AND NONLABORED. CALL LIGHT IS WITHIN REACH AND IV IS INFUSING FINE.
--- NOTE | 2019-04-11 03:29 | NUR ---
PT CALLED TO USE THE RESTROOM. ASSISTED HER 1PA WITH FWW. ATTENDS CHANGED, HELPED PT WIPE, THERE WAS A SMEAR OF DARK GREEN, NO BLOOD NOTED. SHE IS BACK IN BED AT THIS TIME AND DENIES PAIN OR OTHER NEEDS. CALL LIGHT IS CLOSE AND IV IS INFUSING WELL.
--- NOTE | 2019-04-11 05:26 | NUR ---
ASSISTED PT TO THE RESTROOM AND BACK TO BED. SHE DENIES FURTHER NEEDS AT THIS TIME. CALL LIGHT IS CLOSE.
--- NOTE | 2019-04-11 06:17 | NUR ---
IN ROOM TO ADMINISTER ANCEF. PT DENIES NEEDS AT THIS TIME. CALL LIGHT IS WITHIN REACH.
--- NOTE | 2019-04-11 06:20 | NUR ---
PT AMBULATES 1PA WITH FWW. SHE HAS D5LR INFUSING AT 85MLS/HR. SHE IS ON A REGULAR DIET WITH A POOR APPETITE. NO SCDS! SHE WORKS WITH PT AND OT. PT SLEPT WELL LAST NIGHT.
--- NOTE | 2019-04-11 07:42 | NUR ---
PT IS AWAKE RESTING IN BED, DENIES ANY NEEDS, STATES SHE IS NOT HUNGRY THIS AM, NO NAUSEA OR PAIN. CALL LIGHT IN EASY REACH.
--- NOTE | 2019-04-11 08:15 | NUR ---
ASSISTED PT UP TO BATHROOM TO VOID, NOTED INCREASED WEAKNESS AND BECAME INCREASINGLY PALE WITH ACTIVITY. ASSISTED BACK TO BED WITH NAUSEA AND WRETCHING STARTING. ZOFRAN GIVEN, WARM BLANKET, DAUGHTER AT BEDSIDE.
--- NOTE | 2019-04-11 09:16 | NUR ---
Patient has refused breakfast, said she was feeling sick to her stomach. Nurse Notified.
--- NOTE | 2019-04-11 11:00 | NUR ---
PT STATES NAUSEA IS A LITTLE BETTER, HAS NOT EATEN TODAY, NO APPETITE, POOR PO FLUID INTAKE. SEEMS A LITTLE DEPRESSED. AGREED TO ROOM CHANGE WITH A BETTER VIEW. DAUGHTER IN ROOM AND AGREES ITS A GOOD IDEA. MOVED TO ROOM 114.
--- NOTE | 2019-04-11 13:44 | NUR ---
UNABLE TO EAT LUNCH, NO APPETITE, IVF PATENT, PT STATES SHE DOES LIKE NEW ROOM AND A FRIEND HAS STOPPED IN TO VISIT. DENIES ANY NEEDS.
--- NOTE | 2019-04-11 17:13 | NUR ---
PT IS WEAKER TODAY, VERY POOR PO INTAKE, NAUSEA WITH ANY ACTIVITY. IVF PATENT, FAMILY HAS BROUGHT IN SNACKS HOPING TO GET HER EAT A LITTLE. ABD XRAY ORDERED THIS AFTERNOON TO LOOK FOR OBSTRUCTION. PLAN IS STILL TO PROCEED WITH FILTER PLACEMENT ON MONDAY.
--- NOTE | 2019-04-11 18:50 | NUR ---
PT SENT TO X-RAY, IV IN L AC INFILTRATED, RESTARTED USING 22G INTO RAC. IN BED WITH WARM BLANKET FOR COMFORT. IVF PATENT.
--- NOTE | 2019-04-11 20:10 | NUR ---
PT'S VISITOR WALKED BY NURSES STATION ON HER WAY OUT AND SAID PT NEEDS TO USE THE RESTROOM. 1PA WITH FWW TO RESTROOM AND BACK TO BED. PT DENIES FURTHER NEEDS AT THIS TIME. CALL LIGHT IS WITHIN REACH.
--- NOTE | 2019-04-11 21:12 | NUR ---
HS meds med education given. stated understanding/ Coop with assessment, no c/o pain or sob, turns self in bed. Dim lungs sounds at bases,IS at bedside. palpable pedal pulses, 2+ edema LE. No c/o pain. Tolerating fluids, fresh water given IVF infusing, call light at bedside.
--- NOTE | 2019-04-12 01:34 | NUR ---
Resting, no distress, no SOB. turns self in bed. Call light and fluids at bedside
--- NOTE | 2019-04-12 03:05 | NUR ---
Up to br with 1PA and FWW, voided, back to bed, tolerated fair, slight sob with quick recovery noted on return to bed. Denies c/o pain. sats 93%, r20 on return. Call light at bedside
--- NOTE | 2019-04-12 05:23 | NUR ---
PT CURRENTLY RESTING, NO DISTRESS, SOB WITH EXERTION PRESENT AT TIMES. HAS DENIED C/O PAIN. UP TO BR WITH 1PA, VOIDING QS. TOLERATED FAIR. DVT TO LE , PULSES PRESENT, NO C/O LEG PAIN. CALL LIGHT AND FLUIDS AT BEDSIDE. PT TOLERATING SIPS AND SMALL AMOUNTS OF FLUIDS, HAS CARNATION INSTANT BREAKFAST THAT FAMILY BROUIGHT
--- NOTE | 2019-04-12 07:49 | NUR ---
0715: BEDSIDE REPORT RECIEVED FROM NAIN LOPEZ. THE PT IS RESTING IN BED WITH NO COMPLAINTS AT THIS TIME. IV INFUSING D5LR AT 125ML/HR AND THE SITE APPEARS HEALTHY. CALL CORONA WITHIN REACH.
--- NOTE | 2019-04-12 09:35 | NUR ---
PT JUST RETURNED TO BED FOLLOWING BEING UP TO THE CHAIR FOR ABOUT AN HOUR AND A HALF. SHE STATES SHE HAS SOME NAUSEA FOLLOWING THE ACTIVITY WITH MOVING AND THIS IS WHY SHE RETURNED TO BED. PT MEDICATED, SEE EMAR. DR REES TO BEDSIDE SPEAKING WITH THE PT AND HER SON AND DAUGHTER REGARDING HER PLAN. LAKISHA DENIES ANY PAIN OR PROBLEMS OTHER THAN WEAKNESS AND NAUSEA. SEE ASSESSMENT.
--- NOTE | 2019-04-12 10:40 | NUR ---
PT UP TO USE THE BR AND SHE VOIDED AND HELPED BACK TO BED. SHE HAD A BIT OF NAUSEA FOLLOWING THE MOVEMENT WHICH WENT AWAY QUICKLY ONCE SHE WAS BACK TO BED. PT REFUSED TO BE UP TO THE CHAIR DUE TO HER NAUSEA FEELINGS.
--- NOTE | 2019-04-12 11:35 | NUR ---
PT DRINKING HER ORDERED GASTROGRAFIN AT THIS TIME. PT STATES HER NAUSEA IN UNDER CONTROL.
--- NOTE | 2019-04-12 13:39 | NUR ---
PT RESTING IN BED AND CONTINUES TO DENIE ANY PAIN. PT RESUSED TO GET UP TO THE CHAIR AT THIS TIME. PT CONTINUES DRINKING HER GASTROGRAFIN WHICH IS ALMOST GONE.
--- NOTE | 2019-04-12 14:24 | NUR ---
Pt was taken to the x-ray dept by the [facility] for her ordered CT.
--- NOTE | 2019-04-12 15:01 | NUR ---
PT RETURNED FROM CT SCAN, COMPLETED USING THE BATHROOM, PT NOW RESTING IN BED. IV FLUIDS RESUMED.
--- NOTE | 2019-04-12 15:45 | NUR ---
I was called into the pt's room by the pt's daughter who had assisted to the into the BR. The pt had been incont of stool in her depends and her bed. The bedding was changed and blue pad placed on the bed. The pt was finishing up in the BR which she continued to have a large dark colored liquid stool and had also voided in which she missed the hat. Pt was cleaned up and a fresh gown and attends were placed. The pt was assisted back to bed for which she declined to sit up in the chair or at the bedside. The pt has many family members present in the room at this time. Pt continues to denie any pain or other problems other than the loose stools.
--- NOTE | 2019-04-12 17:55 | NUR ---
Pt sleeping at this time.
--- NOTE | 2019-04-12 20:07 | NUR ---
coop with assessment. call light at bedside
--- NOTE | 2019-04-12 20:55 | NUR ---
dr Strange in room to place IJ, permit signed by pt
--- NOTE | 2019-04-12 21:19 | NUR ---
R RADHA PLACED BY DR REES, PROCEDURE EXPLAINED TO PT. PT TOLERATED WELL. CXR FOR PLACEMENT ORDERED. PT AWAKE, WATCHING TV.
--- NOTE | 2019-04-12 21:39 | NUR ---
CXR COMPLETED BY JAYY
--- NOTE | 2019-04-12 21:40 | DS ---
[facility] [address] [facility] [address] [place], [place] [address] Signed ADMISSION DATE: 04/06/2019 DISCHARGE DATE: DATE OF ANTICIPATED DISCHARGE: April 10, 2019. REASON FOR ADMISSION: This 78-year-old white woman presented to the emergency room on April 06, 2019, with 3 weeks of progressive fatigue and so forth. 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 The patient suffered a syncopal episode several weeks ago and broke her femur just above a right knee prosthesis, also having a gastrointestinal bleed and anemia. An upper endoscopy was performed, which showed healed gastric erosions and a PillCam was then performed, which showed some inflammatory change of the terminal ileum, for which colonoscopy was recommended. She underwent repair of the right femur injury and was transferred to a rehabilitation center for about 4 weeks. She has had progressive weakness and poor oral intake, occasional dark stools, but no actual blood per rectum. She was treated with iron replacement therapy. She continues to have intermittent nausea and anorexia. 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 She has had hysterectomy in the distant past. 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 She was admitted by me to general surgical service for further evaluation. 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 It is notable that the patient was fully anticoagulated and her coagulation studies showing therapeutic INR of 2.6. She was admitted for further evaluation and care. PHYSICAL EXAMINATION: GENERAL: Pertinent physical exam shows an obese white woman who is alert and oriented, and well supported by her family members. VITAL SIGNS: Temperature is 97.7, pulse 80, blood pressure 122/46, room air saturation is 96%. NECK: Shows no thyromegaly or cervical adenopathy. She has no jugular venous distention. CHEST: Clear. Electronically Signed By: DEMETRI REES MD 04/12/19 2140 PATIENT NAME: SILAS HAWK DISCHARGE SUMMARY DATE OF : 38 REPORT #: [id number] PHYSICIAN: DEMETRI REES MD PCP: GEORGES DORANTES MD REPORT IS CONFIDENTIAL AND NOT TO BE RELEASED WITHOUT AUTHORIZATION [facility] [address], [place] [address] Signed HEART: Regular without murmur. ABDOMEN: Obese, but soft. There is no palpable mass. No ascites. EXTREMITIES: Show obese lower extremities, but no sign of swelling particularly. No focal tenderness in groin or calf. LABORATORY DATA: Lab studies at admission showed a white count of 9.2, hematocrit 38.0, platelets 456,000. Chem profile; potassium 3.5, creatinine 0.57. Liver enzymes normal. Urinalysis showed urine protein of 30, trace ketones, negative nitrites, white blood cells 15, squames 3+. Admission ProTime 31.8 with an INR of 2.6. HOSPITAL COURSE: She was admitted, given intravenous fluids as she was clinically dehydrated. Review of her CT scan confirmed iliac vein thrombosis. She had no shortness of breath or signs to suggest pulmonary embolism. Fluid resuscitation improved her overall sense of well-being, but she has remained with poor appetite. 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 There is a metastatic lesion to the liver and intraperitoneal nodularity. Consideration was made this would be most likely an ovarian neoplasm as her tumor markers were suggestive of and including a CA-125 of 473.5, CEA of 47.44, and a normal AFP. Duplex ultrasound was performed confirming iliac vein thrombosis as well as bilateral femoral vein thrombosis. She remained with poor appetite overall. In general, plan for exploration of the abdomen, tumor debulking, anticipating palliative chemotherapy. Given her thrombosis occurring even while therapeutically anticoagulated is deemed most likely the propensity of her thrombosis is related primarily to her underlying malignancy. It is admitted that the disease process is incurable, but with palliative intent, the aforementioned plan is deemed reasonable and much desired by the patient and her family. Prior to interventions of any sort, the more proximate hazard to her health is that of potential pulmonary embolism given the extent of thrombotic disease. On that basis, a caval filter is deemed strongly indicated. I did consult with the interventional radiologist on-call, Dr. Ramos Palacios at [facility], who agreed with this idea of caval filter placement. As the patient was Electronically Signed By: DEMETRI REES MD 04/12/192139 PATIENT NAME: SILAS HAWK DISCHARGE SUMMARY DATE OF : 38 REPORT #: [id number] PHYSICIAN: DEMETRI REES MD PCP: GEORGES DORANTES MD REPORT IS CONFIDENTIAL AND NOT TO BE RELEASED WITHOUT AUTHORIZATION [address] [address] Signed ambulatory at her presentation and remains so at this time, an outpatient caval filter placement is deemed a reasonable consideration. Arrangements are being made for outpatient intravenous caval filter placement by Dr. Palacios at the earliest possible opportunity. Subsequent to caval filter placement, plans will then be made for consideration of exploration of the abdomen, tumor debulking, and initiation of palliative chemotherapy. Her current medications will be maintained except for warfarin. These will include vitamin C tablets 250 mg p.o. b.i.d., ferrous sulfate 325 mg one p.o. b.i.d., pantoprazole 40 mg p.o. b.i.d. Her previous dosage of warfarin 1 mg tablet daily is held at this time as it has been for the past few days. Her lab studies on April 10 include a white count of 7.5, hematocrit 32.0, platelets 326,000. Chem profile showing a potassium of 3.2, creatinine of 0.48, GFR greater than 120, calcium of 8.0, glucose of 91. Coag studies showing a ProTime of 35.3 with an INR of 3.1. I have discussed this further with Shimon, the nursing service parts coordinator for Dr. Palacios, and will be faxing this report for his prompt consideration at [phone]. MD DIONTE Blanca/VEGA /[id number] cc: MD Dr. Ramos Leija [facility] Copies: GEORGES DORANTES MD ~ Electronically Signed By: DEMETRI REES MD 04/12/19 2140 PATIENT NAME: SILAS HAWK DISCHARGE SUMMARY DATE OF : 38 REPORT #: [id number] PHYSICIAN: DEMETRI REES MD PCP: GEORGES DORANTES MD REPORT IS CONFIDENTIAL AND NOT TO BE RELEASED WITHOUT AUTHORIZATION
--- NOTE | 2019-04-12 21:56 | NUR ---
MEDICAL RECORD TECHNICIAN ROUNDING NOTE. PT DENIES QUESTIONS OR CONCERNS AT THIS TIME. ICE ADDED TO WATER PER PT'S REQUEST. PT DENIES FURTHER NEEDS AT THIS TIME. CALL LIGHT IN REACH. WHITE BOARD UPDATED.
--- NOTE | 2019-04-12 23:22 | NUR ---
PT'S DAUGHTER CALLED FOR UPDATE, PROVIDED. DENIES FURTHER QUESTIONS AT THIS TIME.
--- NOTE | 2019-04-13 00:32 | NUR ---
RESTING, COMPFORTABLE, NO DISTRESS, DWAIN INFUSING LIPIDS AND TPN, NO ADVERSE REACTION. IVF INFUSING, CALL LIGHT AT BEDSIDE
--- NOTE | 2019-04-13 01:13 | NUR ---
RESTING, DWAIN INFUSING TPN/LIPIDS, TOLERATING WELL, NO N/V, HOB ELEVATED, CALL LIGHT AT BEDSIDE.
--- NOTE | 2019-04-13 03:09 | NUR ---
up to br, voided plus was incontinent of urine and soft stool., skin care done, barrier cream to klaudia area. back to bed, RIJ patent, lipids and TPN infusing. IVF infusing r arm . no c/o pain
--- NOTE | 2019-04-13 04:50 | NUR ---
PT CURRENTLY RESTING, HOB ELEVATED, NO C/O RESP DISTRESS, MILD SOB ON RETURN FROM BR TO BED NOTED. LUNGS CLEAR , OCASSIONAL DRY NON PRODUCTIVE COUGH. PT HAD RIJ IV LINE PLACED BY DR REES. TPN AND LIPIDS INFUSING AT THIS TIME, IVF ON RFA IV SITE, PATENT. TOLERATING SIPS OF FLUIDS, NO N/V, EDEMA OF L ARM AND LE. LEGS ELEVATED, DENIES C/O PAIN. TURNS SELF IN BED, REQUIRES 1PA AND BSC WHEN UP. HAS BEEN INCONTINENT OF URINE AND HAD SEVERAL SMALL LIQUID BMS, BROWN-GREEN COLORED. CALL LIGHT AT BEDSIDE
--- NOTE | 2019-04-13 06:17 | NUR ---
Up to br with 1PA and FWW, voided clear yellow urine and had a med sized semiliquid soft bm. plus was incontinent of urine, attends jordan, barrier cream to klaudia area. Back to bed, tolerated very well this time, on room air. R IJ IV line intact, patent, reinforced with Opsite. Pt decliness sips of water. No n/v. legs elevated. Bruising on R lateral leg healing.
--- NOTE | 2019-04-13 07:41 | NUR ---
0715: REPORT RECIEVED FOR NAIN LOPEZ. PT RESTING IN BED AND SHE DENIES ANY NEW PROBLEMS AND DENIES PAIN. TPN/LIPIDS INFUSING. CALL CORONA WITHIN REACH.
--- NOTE | 2019-04-13 09:06 | NUR ---
PT RESTING IN HER BED WITH FAMILY PRESENT. SHE DENIES PAIN OR ANY NEW PROBLEMS. PT RECIEVING HER ORDERED TPN THROUGH HER IJ WITHOUT DIFFICULTY.
--- NOTE | 2019-04-13 09:36 | NUR ---
PATIENT WALKED WITH PT. PATIENT NOW IN BED WATCHING TV, SON IN ROOM. CALL LIGHT IN REACH. NO FURTHER NEEDS AT THIS TIME. WANTS BED BATH LATER TODAY.
--- NOTE | 2019-04-13 10:38 | NUR ---
DR REES CALLED AND NOTIFIED OF HER LAB RESULTS AND THAT THERE IS NO CBG CHECKS ORDERED. NEW ORDERS GIVEN. PT RESTING IN BED AND DENIES ANY PAIN OR NEW PROBLEMS. SHE STATES SHE JUST FEELS WEAK.
--- NOTE | 2019-04-13 11:03 | NUR ---
D5LR IV DC'D ORDERED.
--- NOTE | 2019-04-13 14:01 | NUR ---
Pt continues to denie any new problems. Pt visiting with her family.
--- NOTE | 2019-04-13 14:12 | NUR ---
PATIENT IN BED, FAMILY IN ROOM. RN IN ROOM. CALL LIGHT IN REACH. NO FURTHER NEEDS AT THIS TIME.
--- NOTE | 2019-04-13 18:08 | NUR ---
PT VISITING WITH HER FAMILY AND DENIES ANY NEW PROBLEMS.
--- NOTE | 2019-04-13 18:34 | NUR ---
PATIENT IN BED WATCHING TV, FAMILY IN ROOM. CALL LIGHT IN REACH. NO FURTHER NEEDS AT THIS TIME.
--- NOTE | 2019-04-13 21:06 | NUR ---
FRONT OFFICE MANAGER ROUNDING NOTE. PRIMARY RN AT BEDSIDE ADMINISTERING MEDICATION AND ASSISTING PT TO THE BATHROOM. PT DENIES QUESTIONS OR CONCERNS AT THIS TIME. WHITE BOARD UPDATED. CALL LIGHT IN REACH.
--- NOTE | 2019-04-13 21:37 | NUR ---
UP TO BR, VOIDED CLEAR YELLOW URIINE, SMEAR OF BM NOTED DURING WIPING, BARRIER CREAM TO HARESH AREA. BACK TO BED 1PA/FWW, INCREASED WEAKNESS OF LE AND SOB NOTED THIS TIME, PT VERY IRRITABLE DURING INTERACTION. C/.O FEELING TIRED, STILL TEARY EYED DUE TO HEALTH SITUATION. LE 2+ EDEMA AT ANKLES AND FEET, 3+ PITTING EDEMA BELOW KNEE TO ANKLES BILAT. BOTH ARMS EDEMATOUS. SL L HANDS INTACT. R IJ PATENT INFUSING TPN. PT TOOK SIPS OF FLUIDS, DENIES N/V. DECLINES TO HAVE LEGS ELEVATED, HOB ELEVATED, COOP WITH ASSESSMENT.
--- NOTE | 2019-04-14 00:59 | NUR ---
CALL LIGHT ANSWERED. 1 SBA TO THE BATHROOM USING WALKER AND BACK TO BED. NEW PULL UPS PROVIDED. ICE WATER REFILLED. NO OTHER NEEDS AT THIS TIME.
--- NOTE | 2019-04-14 01:02 | NUR ---
Resting, eyes closed, no distress, RIJ intact, infusing TPN, call light at bedside
--- NOTE | 2019-04-14 03:16 | NUR ---
RESTING, AWAKES EASILY, NO C/O DISTRESS OR PAIN. R IJ PATENT, IVF TPN INFUSING, LEGS ELEVATED, CALL LIGHT AT BEDSIDE, PT REOISITIONS SELF IN BED
--- NOTE | 2019-04-14 05:47 | NUR ---
PT HAS SLEPT MOST OF THIS SHIFT, UP TO BR WITH 1PA AND FWW. SOB NOTED ON RETURN, EDEMA OF LEGS W/O CHANGES.R CHAO PETERS, TPH INFUSING, PT DENIES C/O PAIN. WAS TEARY EYED AND IRRITABLE AFFECT AT BEGINING OF SHIFT. IMPROVED NOW. TOLERATING FLUIDS, NO N/V.
--- NOTE | 2019-04-14 05:54 | NUR ---
PT UTILIZES CALL LIGHT, REQUESTS TO USE THE BATHROOM. PT ASSISTED TO BATHROOM AND BACK TO BED WITH 1 PA AND FWW. TOLERATED WELL. ICE WATER REFILLED. PT DENIES FURTHER NEEDS. CALL LIGHT IN REACH. PT AGREES TO USE FOR NEEDS.
--- NOTE | 2019-04-14 08:15 | NUR ---
Pt up to bathroom with FWW. Pt up in chair. Pt has generalized weakness. Call light within reach. Encouraged breakfast.
--- NOTE | 2019-04-14 10:27 | NUR ---
PT CONTINUES TO REST IN CHAIR WITH FAMILY IN ROOM.
--- NOTE | 2019-04-14 12:00 | NUR ---
in room to room to talk with patient and family about plan of care. attempting to answer as many questions as possible. awaiting MD arrival for further plan of care.
== END 2019-04-14 12:41 | disposition swing bed (61) | DRG 754 ==
LOC: ED 11:03 → MS 16:25
PROVIDERS: ADMIT Surgery
PROC: 3E02340 Introduction of Influenza Vaccine into Muscle, Percutaneous Approach (ICD-10-PCS; 2019-04-07)
PROC: 02HV33Z Insertion of Infusion Device into Superior Vena Cava, Percutaneous Approach (ICD-10-PCS; principal; 2019-04-12)
DX: C56.9 Malignant neoplasm of unspecified ovary (principal); E43 Unspecified severe protein-calorie malnutrition; C78.7 Secondary malignant neoplasm of liver and intrahepatic bile duct; C79.89 Secondary malignant neoplasm of other specified sites; I82.413 Acute embolism and thrombosis of femoral vein, bilateral; I82.423 Acute embolism and thrombosis of iliac vein, bilateral; C78.4 Secondary malignant neoplasm of small intestine; D50.9 Iron deficiency anemia, unspecified; E66.9 Obesity, unspecified; T45.515A Adverse effect of anticoagulants, initial encounter; R79.1 Abnormal coagulation profile; E86.0 Dehydration; I48.91 Unspecified atrial fibrillation; Z87.11 Personal history of peptic ulcer disease; Z90.710 Acquired absence of both cervix and uterus; Z79.01 Long term (current) use of anticoagulants; Z79.899 Other long term (current) drug therapy; Z68.27 Body mass index [BMI] 27.0-27.9, adult; Z80.41 Family history of malignant neoplasm of ovary
CPT/HCPCS: 36415; 36556; 71045; 74019; 74177; 80048; 80053; 81001; 81241; 82105; 82378; 83735; 84100; 84134; 84484; 85025; 85300; 85303; 85306; 85610; 85613; 85730; 86147; 86304; 86316; 86850; 86900; 86901; 90662; 93005; 93010; 93970; 94760; 97110; 97116; 97162; 97165; 97530; 99285-25; J0690; J1644; J1650; J2405; J3430; J3475; J3480; J7030; J7060; J7120; J7121; Q9967

== ENCOUNTER 2019-04-14 12:41 | Inpatient (IN) | payer MEDICARE, OTHER ==
[~2019-04-14] VITALS: Ht 167.6 cm; Wt 91.6 kg
--- OUTSIDE RECORDS SUMMARY | ~2019-04-14 | XMS | Encounter Summary ---
Demographics + + + | Address | [address] | | | [place] [address] | + + + | Home Phone | | + + + | Preferred Language | Unknown | + + + | Marital Status | | + + + | Mu-Ism Affiliation | 1027 | + + + | Race | Unknown | + + + | Ethnic Group | Unknown | + + + Author + + + | Author | [facility] | | | and [place] | + + + | Organization | [facility] | | | and [place] | + + + | Address | Unknown | + + + | Phone | Unavailable | + + + Support + + + + + | Name | Relationship | Address | Phone | + + + + + | Say Salvador) | ECON | [address] | | | | | [place] | | | | | [address] | | + + + + + | Dakota Lamas | ECON | Unknown | | + + + + + | Hu Rosenberg | ECON | [place] | | + + + + + | Nabil [place] | ECON | Unknown | | | [place] (Claude) | | | | + + + + + Care Team Providers + +------+ + | Care Cut Off Saw Grader Name | Role | Phone | + +------+ + | Sang Chong | PCP | | | MD | | | + +------+ + Reason for Visit + + + | Reason | Comments | + + + | Pre-Procedure | | + + + Encounter Details +--------+ + + + + | Date | Type | Department | Care Team | Description | +--------+ + + + + | 04/10/ | Telephone | [facility] | Shimon Mccartney, | Pre-Procedure | | 2018 | | INTERVENTIONAL | RN | | | | | RADIOLOGY [address] | | | | | | [address] | | | | | | [place] | | | | | | [address] | | | | | | [phone] | | | +--------+ + + + [...] as of this encounter Plan of Treatment +--------+ + + + + | Date | Type | Specialty | Care Team | Description | +--------+ + + + + | 04/15/ | Appointment | Radiology | Shimon Alston | | | 2018 | | | MD [address] | | | | | | [address] | | | | | | [place] [address] | | | | | | [phone] | | | | | | | | +--------+ + + + + documented as of this encounter Visit Diagnoses + + | Diagnosis | + + | Gastrointestinal hemorrhage, unspecified gastrointestinal hemorrhage type - Primary | + + documented in this encounter"
--- OUTSIDE RECORDS SUMMARY | ~2019-04-14 | XMS | Encounter Summary ---
Demographics + + + | Address | [address] | | | [place] [address] | + + + | Home Phone | | + + + | Preferred Language | Unknown | + + + | Marital Status | | + + + | Taoism Affiliation | Unknown | + + + | Race | White | + + + | Ethnic Group | Not or | + + + Author + + + | Author | [facility] | + + + | Organization | [facility] | + + + | Address | Unknown | + + + | Phone | Unavailable | + + + Support + + +---------+ + | Name | Relationship | Address | Phone | + + +---------+ + | Nabil Salvador | ECON | Unknown | | + + +---------+ + Care Team Providers + +------+ + | Care Geophysical Computer Name | Role | Phone | + +------+ + | Sang Chong MD | PCP | | + +------+ + Encounter Details +--------+--------+ + + + | Date | Type | Department | Care Team | Description | +--------+--------+ + + + | 04/09/ | Intake | Transfer Center | | N/A | | 2019 | | [address] | | | | | | [place], | | | | | | [place] [address] | | | +--------+--------+ + + + Social History + +-------+ +--------+------+ | Tobacco Use | Types | Packs/Day | Years | Date | | | | | Used | | + +-------+ +--------+------+ | Former Smoker | | | | | + +-------+ +--------+------+ + +---+---+---+ | Smokeless Tobacco: | | | | | Never Used | | | | + +---+---+---+ + + + | Sex Assigned at [...]
--- OUTSIDE RECORDS SUMMARY | ~2019-04-14 | XMS | Encounter Summary ---
Demographics + + + | Address | [address] | | | [place] [address] | + + + | Home Phone | | + + + | Preferred Language | Unknown | + + + | Marital Status | | + + + | Zoroastrian Affiliation | 1027 | + + + | Race | Unknown | + + + | Ethnic Group | Unknown | + + + Author + + + | Author | [facility] | | | and [place] | + + + | Organization | [facility] | | | and [...] [place] | | | | | [address] | | + + + + + [...] Team Providers + +------+ + | Care Director Of Corporate Communications Name | Role | Phone | + +------+ + | Sang Chong | PCP | | | | | | + +------+ + Reason for Visit + + + | Reason | Comments | + + + | Appointment | schedule Pill Cam | + + + Encounter Details +--------+ + + + + | Date | Type | Department | Care Team | Description | +--------+ + + + + | 01/23/ | Telephone | [facility] | Royce Alejo | Appointment | | 2018 | | GASTROENTEROLOGY | MD [address] | (schedule Pill Cam) | | | | [address] | [address] | | | | | [address] [place] | [place] [address] | | | | | [address] | [phone] | | | | | [phone] | | | +--------+ + + + + Social History + +-------+ +--------+------+ | Tobacco Use | Types | Packs/Day | Years | Date | | | | | Used | | + +-------+ +--------+------+ | Never Smoker | | | | | + [...] | | | | | | [address] | | | | | | [place] [address] | | | | | | [phone] | | | | | | | | +--------+ + + + + documented as of this encounter Visit Diagnoses Not on filedocumented in this encounter"
--- OUTSIDE RECORDS SUMMARY | ~2019-04-14 | XMS | Encounter Summary ---
Demographics + + + | Address | [address] | | | [place] [address] | + + + | Home Phone | | + + + | Preferred Language | Unknown | + + + | Marital Status | | + + + | Mandaeism Affiliation | 1027 | + + + | Race | Unknown | + + + | Ethnic Group | Unknown | + + + Author + + + | Author | [facility] | | | and [place] | + + + | Organization | [facility] | | | and [place] | + + + | Address | Unknown | + + + | Phone | Unavailable | + + + Support + + + + + | Name | Relationship | Address | Phone | + + + + + | Say Salvador) | ECON | [address] | | | | | [place] | | | | | [address] | | + + + + + [...] Team Providers + +------+ + | Care Shale Miner Name | Role | Phone | + +------+ + | Sang Chong | PCP | | | MD | | | + +------+ + Reason for Referral Diagnostic/Screening (Routine) + +--------+ + + + + | Status | Reason | Specialty | Diagnoses / | Referred By | Referred To | | | | | Procedures | Contact | Contact | + +--------+ + + + + | Authorizatio | | Radiology | Diagnoses | Gamaliel, | [address] | | n not | | | | Shimon | Intra Op [address] | | Required | | | Gastrointest | MD Erick | [address] | | | | | inal | [address] | [place], [place] | | | | | hemorrhage, | [place] | [address] | | | | | unspecified | [address] | Phone: | | | | | gastrointest | [place], [place] | [phone] | | | | | inal | [address] | Fax: | | | | | hemorrhage | Phone: | [phone] | | | | | type | [phone] | | | | | | Procedures | Fax: | | | | | | IR Placement | [phone] | | | | | | IVC Filter | | | + +--------+ + + + + Reason for Visit + + + | Reason | Comments | + + + | Pre-Procedure | | + + + Encounter Details +--------+ + + + + | Date | Type | Department | Care Team | Description | +--------+ + + + + | 04/10/ | Telephone | [facility] | Shimon Mccartney, | Pre-Procedure | | 2019 | | INTERVENTIONAL | RN | | | | | RADIOLOGY [address] | | | | | | [address] | | | | | | [place] | | | | | | [address] | | | | | | [phone] | | | +--------+ + + + [...] [address] | | | | | | [address] | | | | | | [place] [address] | | | | | | [phone] | | | | | | | | +--------+ + + + + + +--------+ + + | Name | Priori | Associated Diagnoses | Order Schedule | | | ty | | | + +--------+ + + | IR Placement IVC Filter | Routin | Gastrointestinal | Expected: | | | e | hemorrhage, | 04/10/2019, Expires: | | | | unspecified | 04/10/2020 | | | | gastrointestinal | | | | | hemorrhage type | | + +--------+ + + | CBC with Differential | STAT | Gastrointestinal | Expected: | | | | hemorrhage, | 04/24/2019, Expires: | | | | unspecified | 04/10/2020 | | | | gastrointestinal | | | | | hemorrhage type | | + +--------+ + + | Protime INR | STAT | Gastrointestinal | Expected: | | | | hemorrhage, | 04/24/2019, Expires: | | | | unspecified | 04/10/2020 | | | | gastrointestinal | | | | | hemorrhage type | | + +--------+ + + documented as of this encounter Visit Diagnoses + + | Diagnosis | + + | Gastrointestinal hemorrhage, unspecified gastrointestinal hemorrhage type - Primary | + + documented in this encounter"
--- OUTSIDE RECORDS SUMMARY | ~2019-04-14 | XMS | Encounter Summary ---
Demographics + + + | Address | [address] | | | [place] [address] | + + + | Home Phone | | + + + | Preferred Language | Unknown | + + + | Marital Status | | + + + | Confucianism Affiliation | 1027 | + + + | Race | Unknown | + + + | Ethnic Group | Unknown | + + + Author + + + | Author | [facility] | | | and [place] | + + + | Organization | [facility] | | | and [...] [place] | | | | | [address] | | + + + + + [...] Team Providers + +------+ + | Care Fan Blade Aligner Name | Role | Phone | + +------+ + | Sang Chong | PCP | | | MD | | | + +------+ + Encounter Details +--------+ + + + + | Date | Type | Department | Care Team | Description | +--------+ + + + + | 02/21/ | Anesthesia | [facility] | Oz Zheng | | | 2019 | Event | MED [facility] INTRA OP | DO [address] | | | | | [address] | [address] | | | | | [place] | [place] [address] | | | | | [address] | [phone] | | | | | [phone] | | | +--------+ + + + + Anesthesia Record + + + + + | Procedure Name | Responsible | Anesthesia Start | Anesthesia Stop Time | | | Anesthesiologist | Time | | + + + + + | COLONOSCOPY (N/A | | | | | Rectum) | | | | + + + + + + + | No events on file. | + + +------+ | Meds | +------+ + + + No medications | on file. | + + + + + | No agents on file. | + + + + | No blood administrations on file. | + + + + | No LDAs on file. | + + documented in this encounter Social History + +-------+ +--------+------+ | Tobacco [...] Radiology | Shimon Alston | | | 2019 | | | MD [address] | | | | | | [address] | | | | | | [place] [address] | | | | | | [phone] | | | | | | | | +--------+ + + + + documented as of this encounter Visit Diagnoses Not on filedocumented in this encounter"
--- OUTSIDE RECORDS SUMMARY | ~2019-04-14 | XMS | Encounter Summary ---
Demographics + + + | Address | [address] | | | [place] [address] | + + + | Home Phone | | + + + | Preferred Language | Unknown | + + + | Marital Status | | + + + | Mosque Affiliation | 1027 | + + + | Race | Unknown | + + + | Ethnic Group | Unknown | + + + Author + + + | Author | [facility] | | | and [place] | + + + | Organization | [facility] | | | and [place] | [...] [place] | | | | | [address] | | + + + + + [...] Team Providers + +------+ + | Care Assistant Professor Of Criminal Justice Name | Role | Phone | + [...] | +--------+ + + + + | 02/28/ | Telephone | [facility] | Royce Alejo | Other | | 2019 | | GASTROENTEROLOGY | MD [address] | | | | | [address] | [address] | | | | | [address] [place] | [place] [address] | | | | | [address] | [phone] | | | | | [phone] | | | +--------+ + + + [...] | | | | | | [place] [address] | | | | | | [phone] | | | | | | | | +--------+ + + + + documented as of this encounter Visit Diagnoses Not on filedocumented in this encounter"
--- OUTSIDE RECORDS SUMMARY | ~2019-04-14 | XMS | Encounter Summary ---
Demographics + + + | Address | [address] | | | [place] [address] | + + + | Home Phone | | + + + | Preferred Language | Unknown | + + + | Marital Status | | + + + | Anabaptism Affiliation | 1027 | + + + | Race | Unknown | + + + | Ethnic Group | Unknown | + + + Author + + + | Author | [facility] | | | and Antonioana | + + + | Organization | [facility] | | | and Antonioana [...] [place] | | | | | [address] | | + + + + + [...] Team Providers + +------+ + | Care Spar Finisher Name | Role | Phone | + [...] + + | 04/09/ | Telephone | [facility] | Royce Alejo | Other | | 2019 | | GASTROENTEROLOGY | MD [address] | | | | | [address] [place] | [address] [place] | | | | | [address] | [place] [address] | | | | | [address] | [phone] | | | | | [phone] | | | +--------+ + + + [...] | | | | | [place] [address] | | | | | | [phone] | | | | | | | | +--------+ + + + + documented as of this encounter Visit Diagnoses Not on filedocumented in this encounter"
--- OUTSIDE RECORDS SUMMARY | ~2019-04-14 | XMS | Encounter Summary ---
Demographics + + + | Address | [address] | | | [place] [address] | + + + | Home Phone | | + + + | Preferred Language | Unknown | + + + | Marital Status | | + + + | Amish Affiliation | Unknown | + + + | Race | White | + + + | Ethnic Group | Not or | + + + Author + + + | Author | [facility] | + + + | Organization | [facility] | + + + | Address | Unknown | + + + | Phone | Unavailable | + + + Support + + +---------+ + | Name | Relationship | Address | Phone | + + +---------+ + | Nabil Salvador | ECON | Unknown | | + + +---------+ + Care Team Providers + +------+ + | Care Cardiac Cath Technician Name | Role | Phone | + +------+ + | Sang Chong MD | PCP | | + +------+ + Encounter Details +--------+ + + + + | Date | Type | Department | Care Team | Description | +--------+ + + + + | 04/20/ | Abstract | [facility] | Gautam Walker MD | | | 2018 | | [place] | [address] | | | | | Oculoplastics at | [place], [place] | | | | | Kamila Finley [facility] | [address] | | | | | [address] [facility] | [phone] | | | | | Mailcode: [address] | | | | | | [place], [place] | | | | | | [address] | | | | | | [phone] | | | +--------+ + + + + Social History + +-------+ +--------+------+ | Tobacco Use | Types | Packs/Day | Years | Date | | | | | Used | | + +-------+ +--------+------+ | Never Assessed | | | | | + +-------+ +--------+------+ + + + | Sex Assigned at [...]
--- OUTSIDE RECORDS SUMMARY | ~2019-04-14 | XMS | Encounter Summary ---
Demographics + + + | Address | [address] | | | [place] [address] | + + + | Home Phone | | + + + | Preferred Language | Unknown | + + + | Marital Status | | + + + | Pentecostalism Affiliation | Unknown | + + + | Race | White | + + + | Ethnic Group | Not or | + + + Author + + + | Author | [facility] | + + + | Organization | [facility] | + + + | Address | Unknown | + + + | Phone | Unavailable | + + + Support + + +---------+ + | Name | Relationship | Address | Phone | + + +---------+ + | Nabil Salvador | ECON | Unknown | | + + +---------+ + Care Team Providers + +------+ + | Care Box Sealing Machine Catcher Name | Role | Phone | + +------+ + | Sang Chong MD | PCP | | + +------+ + Encounter Details +--------+ + + + + | Date | Type | Department | Care Team | Description | +--------+ + + + + | 05/11/ | Telephone | [facility] | Gautam Walker MD | | | 2018 | | [place] | [address] | | | | | Oculoplastics at | [place], [place] | | | | | Kamila Finley [facility] | [address] | | | | | [address] [facility] | [phone] | | | | | Mailcode: [address] | | | | | | [place], [place] | | | | | | [address] | | | | | | [phone] | | | +--------+ + + + [...]
--- OUTSIDE RECORDS SUMMARY | ~2019-04-14 | XMS | Clinical Summary ---
Demographics + + + | Address | [address] | | | [place] [address] | + + + | Home Phone | | + + + | Preferred Language | Unknown | + + + | Marital Status | | + + + | Synagogue Affiliation | Unknown | + + + | Race | White | + + + | Ethnic Group | Not or | + + + Author + + + | Author | [facility] | + + + | Organization | [facility] | + + + | Address | Unknown | + + + | Phone | Unavailable | + + + Support + + +---------+ + | Name | Relationship | Address | Phone | + + +---------+ + | Nabil Salvador | ECON | Unknown | | + + +---------+ + Care Team Providers + +------+ + | Care Airline Attendant Name | Role | Phone | + +------+ + | Sang Chong MD | PCP | | + +------+ + Source Comments RONEL is fully live on both [facility] Ambulatory and [facility] InPatient.[facility] Allergies No Known Allergies Medications + + + +---------+------+------+-------+ | Medication | Sig | Dispensed | Refills | Star | End | Statu | | | | | | t | Date | s | | | | | | Date | | | + + + +---------+------+------+-------+ | | Instill 1 drop into | 5 mL | 0 | 10/1 | | Activ | | [id number]-sehoajjzc-p | the left eye three | | | 6/20 | | e | | examethasone | times daily. Use for | | | 18 | | | | (MAXITROL) | 7 days, then | | | | | | | 3.5mg/mL-10,000 | discard | | | | | | | unit/mL-0.1 % | | | | | | | | ophthalmic (eye) | | | | | | | | drops,suspension | | | | | | | + + + +---------+------+------+-------+ | warfarin sodium | Take by mouth. | | 0 | | | Activ | | (COUMADIN ORAL) | | | | | | e | + + + +---------+------+------+-------+ | furosemide 80 mg | Take 80 mg by mouth | | 0 | | | Activ | | oral tablet | once daily. 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 | 05/01/2018 | + + + | Chronic rhinitis | 05/01/2018 | + + + | Deviated septum | 05/01/2018 | + + + Encounters +--------+--------+ + + + | Date | Type | Specialty | Care Team | Description | +--------+--------+ + + + | 04/09/ | Intake | | | N/A | | 2018 | | | | | +--------+--------+ + + + from Last 3 Months Family History + + +------+ + | Medical History | Relation | Name | Comments | + + +------+ + | Heart Disease | Father | | | + + +------+ + + +------+--------+ + | Relation | Name | Status | Comments | + +------+--------+ + | Father | | | | + +------+--------+ + Social History + +-------+ +--------+------+ | [...] recent travel history available. | + + Last Filed Vital Signs Not on file Plan of Treatment + + + + + | Health Maintenance | Due Date | Last Done | Comments | + + + + + | Pneumococcal | | | | | vaccination (1 of 2 | 5 | | | | - PCV13) | | | | + + + + + | Influenza (Flu) | | | | | vaccination (#1) | 9 | | | + + + + + Results Not on filefrom Last 3 Months Insurance + +--------+ +--------+ + +--------+ | Payer | Benefi | Subscriber | Effect | Phone | Address | Type | | | t Plan | ID | weston | | | | | | / | | Dates | | | | | | Group | | | | | | + +--------+ +--------+ + +--------+ | MEDICARE | MEDICA | xxxxxxxxxxx | 07/17/19 | [phone] | [address] | [address] | | | RE A & | | 06-Pre | 1 | [address] | [address] | | | B | | sent | | [place], [place] | | | | | | | | [address] | | + +--------+ +--------+ + +--------+ | COMMERCIAL | INDIVI | [id number] | Effect | | | Indemn | | INDIVIDUAL | DUAL | | weston | | | ity | | | COMMER | | for | | | | | | CIAL | | all | | | | | | | | dates | | | | + +--------+ +--------+ + +--------+ + +--------+ +--------+ + + | Guarantor Name | Accoun | Relation to | Date | Phone | Billing Address | | | t Type | Patient | of | | | | | | | | | | + +--------+ +--------+ + + | Jeanna Salvador | Person | Self [birth year] | [address] | | | al/Fam | | 1941 | [phone] | [place] | | | [place] | | | [address] (Home) | [address] | + +--------+ +--------+ + +"
--- OUTSIDE RECORDS SUMMARY | ~2019-04-14 | XMS | Encounter Summary ---
Demographics + + + | Address | [address] | | | [place] [address] | + + + | Home Phone | | + + + | Preferred Language | Unknown | + + + | Marital Status | | + + + | Advent Affiliation | 1027 | + + + | Race | Unknown | + + + | Ethnic Group | Unknown | + + + Author + + + | Author | [facility] | | | and Antonioana | + + + | Organization | [facility] | | | and [...] [place] | | | | | [address] | | + + + + + [...] Team Providers + +------+ + | Care Certified Optician Name | Role | Phone | + +------+ + | Sang Chong | PCP | | | | | | + +------+ + Reason for Visit + + + | Reason | Comments | + + + | Appointment | colonoscopy | + + + Encounter Details +--------+ + + + + | Date | Type | Department | Care Team | Description | +--------+ + + + + | 02/21/ | Telephone | [facility] | Royce Alejo | Appointment | | 2019 | | MED [facility] INTRA OP | MD [address] | (colonoscopy) | | | | [address] | [address] | | | | | [place] | [place] [address] | | | | | [address] | [phone] | | | | | [phone] | | | +--------+ + + + [...] [place] | | | | | | [place] [address] | | | | | | [phone] | | | | | | | | +--------+ + + + + documented as of this encounter Visit Diagnoses Not on filedocumented in this encounter"
--- OUTSIDE RECORDS SUMMARY | ~2019-04-14 | XMS | Encounter Summary ---
Demographics + + + | Address | [address] | | | [place] [address] | + + + | Home Phone | | + + + | Preferred Language | Unknown | + + + | Marital Status | | + + + | Congregation Affiliation | 1027 | + + + | Race | Unknown | + + + | Ethnic Group | Unknown | + + + Author + + + | Author | [facility] | | | and Antonioana | + + + | Organization | [facility] | | | and Antonioana [...] [place] | | | | | [address] | | + + + + + [...] Team Providers + +------+ + | Care Manager Med Surg Name | Role | Phone | + [...] | Up) | | | | [address] [facility] | [place] | | | | | [place] | [address] | | | | | [address] | | | | | | [phone] | | | +--------+ + + + [...] | | | | | [place] [address] | | | | | | [phone] | | | | | | | | +--------+ + + + + documented as of this encounter Visit Diagnoses Not on filedocumented in this encounter"
--- OUTSIDE RECORDS SUMMARY | ~2019-04-14 | XMS | Encounter Summary ---
Demographics + + + | Address | [address] | | | [place] [address] | + + + | Home Phone | | + + + | Preferred Language | Unknown | + + + | Marital Status | | + + + | Sikh Affiliation | 1027 | + + + | Race | Unknown | + + + | Ethnic Group | Unknown | + + + Author + + + | Author | [facility] | | | and Antonioana | + + + | Organization | [facility] | | | and Antonioana [...] [place] | | | | | [address] | | + + + + + [...] Team Providers + +------+ + | Care Bung Sewer Name | Role | Phone | + +------+ + | Sang Chong | PCP | | | MD | | | + +------+ + Encounter Details +--------+---------+ + + + | Date | Type | Department | Care Team | Description | +--------+---------+ + + + | 02/14/ | Office | [facility] | Deon Barrios, | Periprosthetic | | 2019 | Visit | ORTHOPEDIC SURGERY | [address] | supracondylar | | | | [address] [facility] | [place] [address] | fracture of femur, | | | | [place] | [address] | initial encounter | | | | [address] | | (Primary Dx); S/P | | | | [phone] | | ORIF (open reduction | | | | | | internal fixation) | | | | | | fracture | +--------+---------+ + + + Social History [...] documented as of this encounter Progress Notes Deon Barrios MD - 02/14/2019 1330 PDTPatient returns follow-up open reduction internal fixation of periprosthetic distal femur fracture She is 6 weeks out now and is doing well She comes into full extension Can flex past 90 X-rays show no change in the position or alignment of her hardware or fracture site Impression -healing supracondylar periprosthetic right distal femur fracture We will start advancing weight-bear as tolerated gait Will return in 1 month with x-rays documented in this encounter Plan of Treatment +--------+ + + + + | Date | Type | Specialty | Care Team | Description | +--------+ + + + + | 04/15/ | Appointment | Radiology | Shimon Alston | | | 2018 | | | MD [address] | | | | | | [address] | | | | | | [place] [address] | | | | | | [phone] | | | | | | | | +--------+ + + + + documented as of this encounter Results XR Knee Right 1 [...] + | Librado, Rad Results In - 02/14/2019 1404 PDT XR [...] Periprosthetic supracondylar fracture of femur, initial encounter - Primary | + + | S/P ORIF (open reduction internal fixation) fracture | + + documented in this encounter"
--- OUTSIDE RECORDS SUMMARY | ~2019-04-14 | XMS | Encounter Summary ---
Demographics + + + | Address | [address] | | | [place] [address] | + + + | Home Phone | | + + + | Preferred Language | Unknown | + + + | Marital Status | | + + + | Anabaptist Affiliation | 1027 | + + + | Race | Unknown | + + + | Ethnic Group | Unknown | + + + Author + + + | Author | [facility] | | | and Antonioana | + + + | Organization | [facility] | | | and Antonioana [...] [place] | | | | | [address] | | + + + + + [...] Team Providers + +------+ + | Care Account Receivable Clerk Name | Role | Phone | + +------+ + | Sang Chong | PCP | | | MD | | | + +------+ + Encounter Details +--------+ + + + + | Date | Type | Department | Care Team | Description | +--------+ + + + + | 02/14/ | Hospital | [facility] | Deon Barrios, | Periprosthetic | | 2019 | Encounter | MED CTR DES XRAY | [address] [facility] | supracondylar | | | | [address] [place] | [address] [place] | fracture of femur, | | | | [place], [place] | [address] | initial encounter; | | | | [address] | | S/P ORIF (open | | | | [phone] | | reduction internal | | | [...] | | 0 | | | | [id number]-B1 | mouth Daily. | | | | | | 2 (FOLTANX) 3-35-2 | | | | | | | MG TABS | | | | | | + + + +---------+ + + | | Place 1 drop into | | 0 | 05/01/20 | | | [id number] | the left eye 3 times | [...] | 04/15/ | Appointment | Radiology | [place], [place] | | | 2018 | | | MD [address] | | | | | | [address] | | | | | | [place] [address] | | | | | | [phone] | | | | | | | | +--------+ + + + + documented as of this encounter Procedures + +--------+ [...]
--- OUTSIDE RECORDS SUMMARY | ~2019-04-14 | XMS | Encounter Summary ---
Demographics + + + | Address | [address] | | | [place] [address] | + + + | Home Phone | | + + + | Preferred Language | Unknown | + + + | Marital Status | | + + + | Holiness Affiliation | 1027 | + + + | Race | Unknown | + + + | Ethnic Group | Unknown | + + + Author + + + | Author | [facility] | | | and Antonioana | + + + | Organization | [facility] | | | and Antonioana [...] [place] | | | | | [address] | | + + + + + [...] Team Providers + +------+ + | Care Supervisor Graphite Name | Role | Phone | + +------+ + | Sang Chong | PCP | | | MD | | | + +------+ + Encounter Details +--------+ + + + + | Date | Type | Department | Care Team | Description | +--------+ + + + + | 04/12/ | Telephone | [facility] | Shimon Alston | | | 2019 | | CENTER INTRA OP | MD [address] | | | | | [address] | [address] | | | | | [place], [place] | [place] [address] | | | | | [address] | [phone] | | | | | [phone] | | | +--------+ + + + [...] | | | | | [place] [address] | | | | | | [phone] | | | | | | | | +--------+ + + + + documented as of this encounter Visit Diagnoses Not on filedocumented in this encounter"
--- OUTSIDE RECORDS SUMMARY | ~2019-04-14 | XMS | Encounter Summary ---
Demographics + + + | Address | [address] | | | [place] [address] | + + + | Home Phone | | + + + | Preferred Language | Unknown | + + + | Marital Status | | + + + | Taoist Affiliation | Unknown | + + + | Race | White | + + + | Ethnic Group | Not or | + + + Author + + + | Author | [facility] | + + + | Organization | [facility] | + + + | Address | Unknown | + + + | Phone | Unavailable | + + + Support + + +---------+ + | Name | Relationship | Address | Phone | + + +---------+ + | Nabil Salvador | ECON | Unknown | | + + +---------+ + Care Team Providers + +------+ + | Care Non Destructive Testing Scientist Name | Role | Phone | + +------+ + | Sang Chong MD | PCP | | + +------+ + Encounter Details +--------+---------+ + + + | Date | Type | Department | Care Team | Description | +--------+---------+ + + + | 05/01/ | Office | [facility] | Gautam Walker MD | Neoplasm of | | 2018 | Visit | [facility] | [address] | uncertain behavior | | | | [address] | [address] [place], [place] | of skin of eyelid | | | | [facility] | [address] | (Primary Dx); | | | | Clinic [place], | [phone] | Obstruction of | | | | [place] [address] | | lacrimal canaliculus | | | | [phone] | | of left side; | | [...] and scissors were used to excise a manufacturers service representative p ortion of the mass, and was [...] I have reviewed and edited history and engine emission technician documentation, and performed all elements to above examination documentation. Gautam Walker M.D. Centrifugal Chiller Technician Ophthalmic Facial Plastic and Reconstructive Surgery documented [...] + + | [facility] | [address], [address] | [place] [address] | | | DERMATOPATHOLOGY | [address] [...]
--- OUTSIDE RECORDS SUMMARY | ~2019-04-14 | XMS | Encounter Summary ---
Demographics + + + | Address | [address] | | | [place] [address] | + + + | Home Phone | | + + + | Preferred Language | Unknown | + + + | Marital Status | | + + + | Episcopal Affiliation | 1027 | + + + | Race | Unknown | + + + | Ethnic Group | Unknown | + + + Author + + + | Author | [facility] | | | and Antonioana | + + + | Organization | [facility] | | [...] [place] | | | | | [address] | | + + + + + [...] Team Providers + +------+ + | Care Aircraft Manager Name | Role | Phone | + +------+ + | Sang Chong | PCP | | | | | | + +------+ + Reason for Visit + + + | Reason | Comments | + + + | Procedure | colonoscopy | + + + Encounter Details +--------+ + + + + | Date | Type | Department | Care Team | Description | +--------+ + + + + | 02/12/ | Telephone | [facility] | Royce Alejo | Procedure | | 2019 | | GASTROENTEROLOGY | MD [address] | (colonoscopy) | | | | [address] | [address] [place] | | | | | [address] | [place], [place] [address] | | | | | [address] | [phone] | | | | | [phone] | | | +--------+ + + + [...] [address] | | | | | | [place] [address] | | | | | | [phone] | | | | | | | | +--------+ + + + + documented as of this encounter Visit Diagnoses + + | Diagnosis | + + | Melena - Primary Blood in stool | + + | assistant terminal manager (current) use of anticoagulants Long-term (current) use of anticoagulants | + + | Atrial fibrillation, unspecified type (HCC) | + + | Anemia, unspecified type | + + documented in this encounter"
--- OUTSIDE RECORDS SUMMARY | ~2019-04-14 | XMS | Encounter Summary ---
Demographics + + + | Address | [address] | | | [place] [address] | + + + | Home Phone | | + + + | Preferred Language | Unknown | + + + | Marital Status | | + + + | Nondenominational Affiliation | 1027 | + + + | Race | Unknown | + + + | Ethnic Group | Unknown | + + + Author + + + | Author | [facility] | | | and Antonioana | + + + | Organization | [facility] | | | and Antonioana [...] [place] | | | | | [address] | | + + + + + [...] Team Providers + +------+ + | Care Java Enterprise Architect Name | Role | Phone | + +------+ + | Sang Chong | PCP | | | MD | | | + +------+ + Encounter Details +--------+ + + + + | Date | Type | Department | Care Team | Description | +--------+ + + + + | 03/14/ | Hospital | [facility] | Deon Barrios, | Periprosthetic | | 2019 | Encounter | MED CTR DES XRAY | [address] [facility] | supracondylar | | | | [address] [place] | [address] [place] [address] | fracture of femur, | | | | [place], [place] | [address] | initial encounter; | | | | [address] | | S/P ORIF (open | | | | [phone] | | reduction internal | | | [...] | | 0 | | | | [id number]-T0-[id number] | mouth Daily. | | | | | | 2 (FOLTANX) 3-35-2 | | | | | | | MG TABS | | | | | | + + + +---------+ + + | | Place 1 drop into | | 0 | 05/01/20 | | | [id number] | the left eye 3 times | [...] | 04/15/ | Appointment | Radiology | [place], Sh[place] | | | 2018 | | | MD [address] | | | | | | [address] | | | | | | [place] [address] | | | | | | [phone] | | | | | | | [...] Right 1 - 2 Vw (03/14/2019 13:22 PDT) + + | Specimen | + [...]
--- OUTSIDE RECORDS SUMMARY | ~2019-04-14 | XMS | Clinical Summary ---
Demographics + + + | Address | [address] | | | [place] [address] | + + + | Home Phone | | + + + | Preferred Language | Unknown | + + + | Marital Status | | + + + | Confucianism Affiliation | 1027 | + + + | Race | Unknown | + + + | Ethnic Group | Unknown | + + + Author + + + | Author | [facility] | | | and [place]ana | + + + | Organization | [facility] | | | and [place] | [...] [place] | | | | | [address] | | + + + + + [...] Team Providers + +------+ + | Care Options Advisor Name | Role | Phone | + [...] 0 | | | Activ | | [id number] | mouth Daily. | | | | [...] | 10/1 | | Activ | | [id number] | the left eye 3 times | [...] | Noted Date | +---------+ + | Melena | 02/14/2019 | +---------+ + + + | Overview: Added automatically from request for surgery | | [id number] | + + + + + | jail (current) use of anticoagulants | 02/14/2019 | + + + + + | Overview: Added automatically from request for surgery | | [id number] | + + + + + | Atrial fibrillation, unspecified type | 02/14/2019 | + + + + + | Overview: Added automatically from request for surgery | | [id number] | + + + + + | Anemia, unspecified type | 02/14/2019 | + + + + + | Overview: Added automatically from request for surgery | | [id number] | + + + + + | [...] Appointment (Follow | | 2018 | | | | Up) | +--------+ + + + + | 04/09/ | Telephone | Gastroenterology | SapnaRoyce | Other | | 2019 | | | MD Anton | | [...] | 2018 | Visit | | MD | supracondylar | | [...] | Appointment | | 2018 | | | MD [...] | +--------+ + + + + | 02/04/ | Abstract | Gastroenterology | Kiley, | | | 2018 | | | MD Yoko | | +--------+ + + + + | 01/23/ | Telephone | Gastroenterology | Royce Alejo | Appointment | | 2018 | | | MD Anton | (schedule Pill Cam) | +--------+ + + + + from [...] + + + | Blood Pressure | 140/65 | 01/09/2019835 PDT | + + + + | Pulse | 94 | 01/09/2019835 PDT | + + + + | Temperature | 36.9 C (98.4 F) | 01/09/2019835 PDT | + + + + | Respiratory Rate | 16 | 01/09/2019835 PDT | + + + + | Oxygen Saturation | 96% | 01/09/2019835 PDT | + + + + | Inhaled Oxygen | - | - | | Concentration | | | + + + + | Weight | 97.3 kg (214 lb 8.1 | 01/03/2019423 PDT | | | oz) | | + + + + | Height | 170.2 cm (5' 7") | 01/01/2019954 PDT | + + + + | Body Mass Index | 33.6 | 01/01/2019 0955 PDT | + + + + Plan of Treatment +--------+ + + + + | Date | Type | Specialty | Care Team | Description | +--------+ + + + + | 04/15/ | Appointment | Radiology | Shimon Alston | | | 2018 | | | MD [address] | | | | | | [address] | | | | | | [place] [address] | | | | | | [phone] | | | | | | | | +--------+ + + + + + + + + + | Health [...] + + + | Vaccine: Influenza | | | | | (#1) | 9 | | | + [...] Screw | | [place] | | | [id number] | | [id number]: Qty: 1 | | | MEDICAL - | | | / / | | on 01/02/2019 by Denis, | | | STRRadha | | | | | Deon Shah MD | | | | | | | + +-------+------+ +--------+--------+--------+ | Screw Remy 5x60mm - | Screw | | [place] | | | [id number] | | [id number]: Qty: 1 | | | MEDICAL - | | | / / | | on 01/02/2019 by Denis, | | | STRY | | | | | Deon Shah MD | | | | | | | + +-------+------+ +--------+--------+--------+ | Screw Remy 5x80mm - | Screw | | [place] | | | [id number] | | [id number]: Qty: 2 | | | MEDICAL - | | | / / | | on 01/02/2019 by Denis, | | | STRY | | | | | Deon Shah MD | | | | | | | + +-------+------+ +--------+--------+--------+ | Plate Fem Dist Lat 238mm 10 | | | [place] | | | [id number] | | Hl - [id number]: | | | MEDICAL - | | | / / | | Qty: 1 on 01/02/2019 by | | | STRY | | | | | Deon Barrios MD | | | | | | | + +-------+------+ +--------+--------+--------+ | Screw Remy 5mm 5.0 L34mm - | | | [place] | | | [id number] | | [id number]: Qty: 3 | | | MEDICAL - | | | / / | | on 01/02/2019 by Denis, | | | STRY | | | | | Deon Shah MD | | | | | | | + +-------+------+ +--------+--------+--------+ | Screw Remy 5mm 5.0 L75mm - | | | [place] | | | [id number] | | [id number]: Qty: 2 | | | MEDICAL - | | | / / | | on 01/02/2019 by Denis | | | NKECHI | | | | | Deon Shah MD | | | | | | | + +-------+------+ +--------+--------+--------+ Procedures + +--------+ [...] + + from Last 3 Months Results XR Knee Right 1 - 2 [...] +--------+ +---------+--------+ | MEDICARE | MEDICA | [id number] | 11/15/19 | [phone] | | Medica | | | RE | | 05-Pre | 5 | | re | | | PART A | | sent | | | | | | AND B | | | | | | + +--------+ +--------+ +---------+--------+ | [employer] [place] | [place] | [id number] | | [phone] | | Indemn | | | OF | | 006-Pr | 0 | | ity | | | [place] | | esent | | | | | | MDCR | | | | | | | | SUPPL | | | | | | + +--------+ +--------+ +---------+--------+ | MEDICARE | MEDICA | [id number] | 07/17/19 | [phone] | | Medica [...] | [address] | | | [place] | | 1941 | [phone] | [address] [place] | | | [place] | | | [address] (Home) | [address] | + +--------+ +--------+ + + | SalvadorEmanuelJeanna | Person | Self [birth year] | [address] | | | [place] | | 1941 | [phone] | [address] [place] | | | [place] | | | [address] (Home) | [address] | + +--------+ +--------+ + + Advance Directives Patient has advance care planning documents, and code status on file. For more information, please contact:[facility] [place] [address] + + + + + | Code [...]
--- OUTSIDE RECORDS SUMMARY | ~2019-04-14 | XMS | Encounter Summary ---
Demographics + + + | Address | [address] | | | [place] [address] | + + + | Home Phone | | + + + | Preferred Language | Unknown | + + + | Marital Status | | + + + | Denominational Affiliation | 1027 | + + + | Race | Unknown | + + + | Ethnic Group | Unknown | + + + Author + + + | Author | [facility] | | | and Antonio[place] | + + + | Organization | [facility] | [...] [place] | | | | | [address] | | + + + + + [...] Team Providers + +------+ + | Care Undercover Operator Name | Role | Phone | + +------+ + | Sang Chong | PCP | | | | | | + +------+ + Encounter Details +--------+---------+ + + + | Date | Type | Department | Care Team | Description | +--------+---------+ + + + | 02/06/ | Office | [facility] [place] | Royce Alejo | Melanie (Primary Dx); | | 2018 | Visit | GASTROENTEROLOGY | MD Anton [address] | Anemia, unspecified | | | | [address] | [address] | type | | | | [address] [place] | [place] [address] | | | | | [address] | [phone] | | | | | [phone] | | | +--------+---------+ + + + [...] warfarin for 5 days prior to colonoscopy. Suhas, Charlene Noe RN - 02/06/2019 0830 PDTPatient [...] PDTdocumented in this encounter Plan of Treatment +--------+ + + + + | Date | Type | Specialty | Care Team | Description | +--------+ + + + + | 04/15/ | Appointment | Radiology | Shimon Alston | | | 2018 | | | MD [address] | | | | | | [address] | | | | | | [place] [address] | | | | | | [phone] | | | | | | | | +--------+ + + + + documented as of this encounter Visit Diagnoses + + | Diagnosis | + + | Melena - Primary Blood in stool | + + | Anemia, unspecified type | + + documented in this encounter"
--- OUTSIDE RECORDS SUMMARY | ~2019-04-14 | XMS | Encounter Summary ---
Demographics + + + | Address | [address] | | | [place] [address] | + + + | Home Phone | | + + + | Preferred Language | Unknown | + + + | Marital Status | | + + + | Holiness Affiliation | 1027 | + + + | Race | Unknown | + + + | Ethnic Group | Unknown | + + + Author + + + | Author | [facility] | | | and [place] | + + + | Organization | [facility] | | | and [place] [...] [place] | | | | | [address] | | + + + + + [...] Team Providers + +------+ + | Care Sider Name | Role | Phone | + +------+ + | Sang Chong | PCP | | | MD | | | + +------+ + Encounter Details +--------+---------+ + + + | Date | Type | Department | Care Team | Description | +--------+---------+ + + + | 03/14/ | Office | [facility] | Deon Barrios, | Periprosthetic | | 2019 | Visit | ORTHOPEDIC SURGERY | [address] | supracondylar | | | | [address] [facility] | [place] | fracture of femur, | | | | [place] | [address] | initial encounter | | | | [address] | | (Primary Dx); S/P | | | | [phone] | | ORIF (open reduction | | [...] encounter Progress Notes Deon Barrios MD - 03/14/2019 1330 PDTPatient returns follow up ORIF right supracondylar periprosthetic femur fracture around a TKA She is doing better - she is 10 weeks out now On exam her knee has a comfortable range of motion without difficulty No evidence of infection No instability xrays show increased healing at the fracture site without hardware complication Impression - 10 weeks s/p ORIF right supracondylar periprosthetic femur fracture Will advanced her WBAT Return in one month with xrays 9 :37 PDTdocumented in this encounter Plan of Treatment +--------+ + + + + | Date | Type | Specialty | Care Team | Description | +--------+ + + + + | 04/15/ | Appointment | Radiology | Shimon Alston | | | 2018 | | | MD [address] | | | | | | [address] | | | | | | [place] [address] | | | | | | [phone] | | | | | | | [...] + | Robby Pavon Results In - 03/14/2019 1606 PDT XR [...]
--- OUTSIDE RECORDS SUMMARY | ~2019-04-14 | XMS | Encounter Summary ---
Demographics + + + | Address | [address] | | | [place] [address] | + + + | Home Phone | | + + + | Preferred Language | Unknown | + + + | Marital Status | | + + + | Druze Affiliation | 1027 | + + + | Race | Unknown | + + + | Ethnic Group | Unknown | + + + Author + + + | Author | [facility] | | | and [place] | + + + | Organization | [facility] | | | and [...] [place] | | | | | [address] | | + + + + + [...] Team Providers + +------+ + | Care Sign Language Translator Name | Role | Phone | + +------+ + | Sang Chong | PCP | | | MD | | | + +------+ + Encounter Details +--------+ + + + + | Date | Type | Department | Care Team | Description | +--------+ + + + + | 02/04/ | Abstract | [facility] | Kiley, | | | 2018 | | GASTROENTEROLOGY | MD [address] | | | | | [address] [facility] | [place] | | | | | [address] | [place] [address] | | | | | [address] | | | | | | [phone] | | | +--------+ + + + [...] | | | | | [place] [address] | | | | | | [phone] | | | | | | | | +--------+ + + + + documented as of this encounter Visit Diagnoses Not on filedocumented in this encounter"
[~2019-04-14 12:41] MED LIST changes: +COUMADIN2.5 MG PO; +VITAMIN C250 MG PO
--- NOTE | 2019-04-16 09:42 | HP ---
[facility] [address] [place], [place] [address] Signed ADMISSION DATE: 04/14/2019 REASON FOR ADMISSION: This 78-year-old white woman is a patient Dr. Georges Chong. [facility], and April 14, 2019. She presented to emergency room with many weeks of progressive decline, poor intake orally and not doing well at home following a supracondylar fracture of her femur with prior total knee replacement requiring operative repair in [place] by Dr. Barrios several weeks ago. She was in a chcf for approximately 3 weeks following operation, transition to home but doing poorly with poor oral intake. She had no particular nausea or vomiting, but no appetite and clinical dehydration was noted upon presentation in the emergency room. 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 Her hospitalization revealed in addition an extensive ileofemoral venous thrombosis despite being anticoagulated with Coumadin at therapeutic levels. She was found to have profound nutritional deficiency with a prealbumin of 3.6. She was managed with subcutaneous heparin, subsequently Lovenox and her INR corrected with vitamin K. Anticipating outpatient vena caval filter placement [facility] by Dr. Ramos Palacois. The patient has had a nutritional approach currently to include total parenteral nutrition via the right internal jugular vein, ultimately anticipating transition to enteral tube feeding via PEG tube to allow for discharge an outpatient nutritional recovery, ultimately to undergo laparotomy and resection of the tumor and tumor debulking. She is admitted to swing bed status primarily for continued physical therapy for profound deconditioning as well as enteral support. PERTINENT PHYSICAL EXAM: GENERAL: Pleasant white woman who is somewhat obese overall. She is clinically well hydrated at this time. Trachea is midline. CHEST: Clear. HEART: Regular without murmur. ABDOMEN: Somewhat obese. There is a palpable mass in the right lower abdomen and is nontender. Electronically Signed By: DEMETRI REES MD 04/16/19 0942 PATIENT NAME: SILAS HAWK HISTORY AND PHYSICAL DATE OF : 38 REPORT #: [id number] PHYSICIAN: DEMETRI REES MD PCP: GEORGES CHONG MD REPORT IS CONFIDENTIAL AND NOT TO BE RELEASED WITHOUT AUTHORIZATION [facility] [address] [place], [place] [address] Signed EXTREMITIES: No clubbing, cyanosis, or edema. She shows no stigmata of deep venous thrombosis at this time. LABORATORY STUDIES: Show a white count on 12 April of 7.3, hematocrit 34.8, platelets 347,000. A Chem profile same time showed a creatinine of 0.41. Electrolytes normal. Glucose of 124, calcium 7.7, phosphorus 2.5, magnesium 1.6. Her coag studies on 14 April, show a ProTime of 14.9 with an INR of 1.1. Thrombophilia panel is pending. Chromogranin A assessment is also pending. ASSESSMENT: The patient has significant deconditioning for which physical therapy will be of benefit. She additionally has nutritional deficiencies for which parenteral TPN will be maintained and transitioned to enteral tube feedings is anticipated as well. 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 Additionally, tumor debulking will be undertaken on the likelihood this represents ovarian cancer, ultimately to undergo palliative chemotherapy. Given her advanced age, several discussions have been undertaken with the patient and her family who wish to pursue these aggressive measures, which considering her general high functioning status prior to her more recent illness is considered reasonable. MD DIONTE Blanca/MIKEYL /[id number] cc: Georges Chong MD Copies: GEORGES CHONG MD Electronically Signed By: DEMETRI REES MD 04/16/19 0942 PATIENT NAME: SILAS HAWK HISTORY AND PHYSICAL DATE OF : 38 REPORT #: [id number] PHYSICIAN: DEMETRI REES MD PCP: GEORGES CHONG MD REPORT IS CONFIDENTIAL AND NOT TO BE RELEASED WITHOUT AUTHORIZATION [facility] [address] [place], [place] [address] Signed ~ Electronically Signed By: DEMETRI REES MD 04/16/19 0942 PATIENT NAME: SILAS HAWK HISTORY AND PHYSICAL DATE OF : 38 REPORT #: [id number] PHYSICIAN: DEMETRI REES MD PCP: GEORGES CHONG MD REPORT IS CONFIDENTIAL AND NOT TO BE RELEASED WITHOUT AUTHORIZATION
--- NOTE | 2019-04-30 13:03 | EKG ---
[facility] [address] [place] [address] Signed Atrial fibrillation with rapid ventricular rate with premature ventricular contractions and PVC with aberrant conduction Inferior infarct (cited on or before 06-APR-2019) Abnormal ECG When compared with ECG of 06-APR-2019 11:54, Current undetermined rhythm precludes rhythm comparison, needs review T wave inversion no longer evident in Anterior leads Confirmed by MAYURI GALEANO MD ([id number]) on 04/30/2019 1:02:45 PM Electronically Signed By: MAYURI GALEANO MD 04/30/19 1303 PATIENT NAME: SILAS HAWK Electrocardiogram DATE OF : 38 PHYSICIAN: MAYURI GALEANO MD REPORT #: [id number] REPORT IS CONFIDENTIAL AND NOT TO BE RELEASED WITHOUT AUTHORIZATION
--- NOTE | 2019-05-01 19:14 | EKG ---
[facility] [address] [facility] [place] [address] Signed Atrial fibrillation with rapid ventricular rate Rightward axis Borderline ECG When compared with ECG of 30-APR-2019 09:57, Current undetermined rhythm precludes rhythm comparison, needs review Criteria for Inferior infarct are no longer present Confirmed by MAYURI GALEANO MD ([id number]) on 05/01/2019 7:14:03 PM Electronically Signed By: MAYURI GALEANO MD 05/01/19 1914 PATIENT NAME: SILAS HAWK Electrocardiogram DATE OF : 38 PHYSICIAN: MAYURI GALEANO MD REPORT #: [id number] REPORT IS CONFIDENTIAL AND NOT TO BE RELEASED WITHOUT AUTHORIZATION
[2019-05-07] MEDS ORDERED: OXYCODONE HCL5 MG PO (16:07)
--- NOTE | 2019-05-08 13:31 | OR ---
[facility] [address] [place], [place] [address] Signed DATE OF OPERATION: 04/24/2019 SURGEON: Demetri Rees MD PREOPERATIVE DIAGNOSIS: Need for triple lumen central venous catheter. POSTOPERATIVE DIAGNOSIS: Need for triple lumen central venous catheter. PROCEDURE: Placement of right Arrow blue tip triple-lumen catheter, right internal jugular vein. ANESTHESIA: 1% lidocaine. 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 She has been getting infusional TPN through a right internal jugular vein catheter. She has undergone a right internal jugular approach central venous placement of a caval filter elsewhere. She has peripheral edema and although was improved with diuresis, difficulty was noted for obtaining blood samples for monitoring. On that basis, a triple-lumen catheter on the right side is needed. The risks of bleeding, infection, pneumothorax, and so forth were all reviewed with her. She understands and wished to proceed. FINDINGS: The other catheter was removed without problem. The wire passed down the jugular vein and passage of the triple-lumen catheter showed it to be functional at conclusion. Chest x-ray is pending. DESCRIPTION OF PROCEDURE: With the patient in supine position, the head was turned to the left and the dressing of the previous right internal jugular vein catheter removed. The area was generously prepared with Betadine solution and draped sterilely. Securing sutures from the previous line were removed and a Clave device was applied to the catheter itself and the other tubing discarded. Additional preparation with Betadine was undertaken and sterile draping maintained. An Arrow blue tip triple-lumen catheter kit was used and a flexible J-wire was then passed down the right single-lumen catheter and the catheter removed. Electronically Signed By: DEMETRI REES MD 04/25/19 1626 Electronically Signed By: DEMETRI REES MD 05/08/19 1950 PATIENT NAME: SILAS HAWK OPERATIVE REPORT DATE OF : 38 REPORT #: [id number] PHYSICIAN: DEMETRI REES MD PCP: GEORGES CHONG MD REPORT IS CONFIDENTIAL AND NOT TO BE RELEASED WITHOUT AUTHORIZATION [facility] [address] [place], [place] [address] Signed The site was injected with 1% lidocaine. The previously inspected and irrigated Arrow blue tip triple-lumen catheter was passed down over the wire and the wire removed through the distal port. Clips had artery been applied to the device. Aspiration showed dark nonpulsatile blood through the distal lumen. The distal lumen was flushed. The catheter was withdrawn a bit, placed in an appropriate curl position and secured to the skin with nylon suture. An anti-infective dressing was applied as was a SorbaView dressing. A chest x-ray will be performed to assure the tip of the catheter is in appropriate position. There was no complication. MD DIONTE Blanca/VEGA /[id number] cc: Georges Chong MD Copies: GEORGES CHONG MD ~ Electronically Signed By: DEMETRI REES MD 04/25/19 1626 Electronically Signed By: DEMETRI REES MD 05/08/19 1950 PATIENT NAME: SILAS HAWK OPERATIVE REPORT DATE OF : 38 REPORT #: [id number] PHYSICIAN: DEMETRI REES MD PCP: GEORGES CHONG MD REPORT IS CONFIDENTIAL AND NOT TO BE RELEASED WITHOUT AUTHORIZATION
--- NOTE | 2019-05-08 13:32 | OR ---
[facility] [address] [place], [place] [address] Signed DATE OF OPERATION: 04/27/2019 SURGEON: Demetri Rees MD POSTOPERATIVE DIAGNOSIS: Right internal jugular central venous catheter with TPN, recent febrile episode. POSTOPERATIVE DIAGNOSIS: Right internal jugular central venous catheter with TPN, recent febrile episode. PROCEDURES PERFORMED: 1. Placement of left subclavian Arrow blue tip triple-lumen central venous catheter. 2. Explantation of right internal jugular catheter with culture of tip. ANESTHESIA: 1% lidocaine. INDICATION: This 78-year-old white woman is in a swing bed status, undergoing nutritional resuscitation for what has proven to be a large pelvic mass partially causing obstructive symptoms of her ileum. She has been tolerating enteral feedings via PEG tube to a limited extent, only 30 mL an hour, and still required central venous catheter for TPN. She developed a temperature spike today of 102.4. She is known to have an ileofemoral venous thrombosis, for which she now has a caval filter and continued use of Lovenox. She is undergoing nutritional resuscitation, anticipating tumor debulking in the near future. Given her temperature elevation and the fact that she has had the right internal jugular central venous catheterization for greater than a week, and despite a recent catheter line change, a new central venous catheter was deemed appropriate. The risks of bleeding, infection, pneumothorax were reviewed with her and her . They understand and wished to proceed. FINDINGS: The catheter was placed in left subclavian vein without problem. Dark nonpulsatile blood was noted. She tolerated the procedure well. A postprocedure chest x-ray shows good placement of the catheter without sign of complication. The right internal jugular catheter was removed and the tip sterilely delivered for Gram stain and culture. Note is made of some minimal amount of thrombus in the middle port opening of the catheter. The distal port did not have any thrombus. There were no complications. Electronically Signed By: DEMETRI REES MD 04/28/19 1103 Electronically Signed By: DEMETRI REES MD 05/08/19 1950 PATIENT NAME: SILAS HAWK OPERATIVE REPORT DATE OF : 39 REPORT #: [id number] PHYSICIAN: DEMETRI REES MD PCP: GEORGES CHONG MD REPORT IS CONFIDENTIAL AND NOT TO BE RELEASED WITHOUT AUTHORIZATION [facility] [address] [place], [place] [address] Signed DESCRIPTION OF PROCEDURE: The patient was placed in supine position on her bed with arms at the side. The left and right subclavian areas were prepared with a chlorhexidine solution and draped sterilely. 1% lidocaine was injected in the left infraclavicular space. Using the Seldinger technique with sterile protocol in place (gown, gloves, etc.), the left subclavian vein was easily accessed on single pass with Seldinger technique. Dark nonpulsatile blood was noted. A flexible J-wire was passed down the needle and needle was removed. The site was incised with an #11 blade and dilated with an Arrow blue tip triple-lumen catheter kit dilator device. A previously inspected air-fluid blue tip triple-lumen catheter, which had been flushed, was passed over the wire. The wire was removed. Aspiration on the distal port showed dark nonpulsatile blood. All catheter ports were flushed with sterile saline. The catheter was secured to the skin per ip technology transactions attorney's instructions with the enclosed silk suture on a Pop needle. Anti-infective disk was placed as was a SorbaView dressing. Separately, the right internal jugular dressing was taken down and the securing sutures incised and the catheter carefully withdrawn. Pressure was applied to the puncture site and the tip was kept sterile. This tip was then cut off with sterile scissors into a sterile cup for delivery to the lab for catheter tip culture. In time, Band-Aid was applied to the puncture site. She tolerated both procedures well. MD DIONTE Blanca/MODL /[id number] cc: Georges Chong MD Copies: GEORGES CHONG MD ~ Electronically Signed By: DEMETRI REES MD 04/28/19 1103 Electronically Signed By: DEMETRI REES MD 05/08/19 1950 PATIENT NAME: SILAS HAWK OPERATIVE REPORT DATE OF : 39 REPORT #: [id number] PHYSICIAN: DEMETRI REES MD PCP: GEORGES CHONG MD REPORT IS CONFIDENTIAL AND NOT TO BE RELEASED WITHOUT AUTHORIZATION
== END 2019-05-07 14:40 | disposition home or self-care (01) | DRG 641 ==
LOC: MS 12:41 → CCU 12:41 → MS 05-07 14:40 → CCU 05-07 18:45 → MS 05-07 18:45
PROVIDERS: ADMIT Surgery
PROC: 02HV33Z Insertion of Infusion Device into Superior Vena Cava, Percutaneous Approach (ICD-10-PCS; principal; 2019-04-24)
PROC: 02PYX3Z Removal of Infusion Device from Great Vessel, External Approach (ICD-10-PCS; 2019-04-27)
PROC: 02HV33Z Insertion of Infusion Device into Superior Vena Cava, Percutaneous Approach (ICD-10-PCS; 2019-04-27)
PROC: 30233N1 Transfusion of Nonautologous Red Blood Cells into Peripheral Vein, Percutaneous Approach (ICD-10-PCS; 2019-05-06)
DX: E63.9 Nutritional deficiency, unspecified (principal); I48.19 Other persistent atrial fibrillation; I82.403 Acute embolism and thrombosis of unspecified deep veins of lower extremity, bilateral; C56.9 Malignant neoplasm of unspecified ovary; C78.7 Secondary malignant neoplasm of liver and intrahepatic bile duct; C78.6 Secondary malignant neoplasm of retroperitoneum and peritoneum; D68.51 Activated protein C resistance; E66.9 Obesity, unspecified; D63.0 Anemia in neoplastic disease; E87.70 Fluid overload, unspecified; R50.9 Fever, unspecified; D72.829 Elevated white blood cell count, unspecified; Z79.899 Other long term (current) drug therapy; Z93.1 Gastrostomy status; Z79.01 Long term (current) use of anticoagulants; Z68.31 Body mass index [BMI] 31.0-31.9, adult
CPT/HCPCS: 36415; 36430; 71045; 74018; 74250; 76942; 80048; 80053; 80061; 81001; 82247; 82465; 83615; 83735; 83880; 84100; 84134; 84478; 84484; 84550; 85025; 85032; 85610; 85730; 86850; 86900; 86901; 86920; 87070; 87075; 87205; 93005; 93010; 97110; 97116; 97163; 97165; 97530; 97535; J0131; J0330; J0690; J0692; J0694; J0780; J1100; J1650; J1885; J1940; J1956; J2250; J2405; J2550; J2704; J2795; J3010; J3475; J3480; J7040; J7060; J7120; J7121; P9016

== ENCOUNTER 2019-05-07 14:40 | Inpatient (IN) | payer MEDICARE, OTHER ==
[~2019-05-07] VITALS: Ht 167.6 cm; Wt 96.2 kg
--- OUTSIDE RECORDS SUMMARY | ~2019-05-07 | XMS | Encounter Summary ---
Demographics + + + | Address | [address] | | | [place] [address] | + + + | Home Phone | | + + + | Preferred Language | Unknown | + + + | Marital Status | | + + + | Baptism Affiliation | 1027 | + + + | Race | Unknown | + + + | Ethnic Group | Unknown | + + + Author + + + | Author | [facility] | | | and [place] | + + + | Organization | [facility] | | | and [place] | + + + | Address | Unknown | + + + | Phone | Unavailable | + + + Support + + + + + | Name | Relationship | Address | Phone | + + + + + | Nabil [place] | ECON | Unknown | | | Alpesh (Alpesh) | | | | + + + + + | Say Salvador) | ECON | [address] | | | | | [place] | | | | | [address] | | + + + + + | Dakota Lamas | ECON | Unknown | | + + + + + | Hu Rosenberg | ECON | [place] | | + + + + + Care Team Providers + +------+ + | Care Health Plan Specialist Name | Role | Phone | + +------+ + | Sang Chong | PCP | | | | | | + +------+ + Reason for Visit +--------+ + | Reason | Comments | +--------+ + | Other | | +--------+ + Encounter Details +--------+ + + + + | Date | Type | Department | Care Team | Description | +--------+ + + + + | 04/09/ | Telephone | [facility] | Royce Alejo | Other | | 2019 | | GASTROENTEROLOGY | MD [address] | | | | | [address] | [address] | | | | | [address] | [place] [address] | | | | | [address] | [phone] | | | | | [phone] | | | +--------+ + + + + Social History + +-------+ +--------+------+ | Tobacco Use | Types | Packs/Day | Years | Date | | | | | Used | | + +-------+ +--------+------+ | Former Smoker | | | | | + +-------+ +--------+------+ + + +---------+ + | Alcohol Use | Drinks/We | oz/Week | Comments | | | ek | | | + + +---------+ + | No | | | | + + +---------+ + + + + | Sex Assigned at | Date Recorded | | | | + + + | Not on file | | + + + + + + + | Job Start Date | Occupation | Industry | + + + + | Not on file | Not on file | Not on file | + + + + + + + + | Travel History | Travel Start | Travel End | + + + + + + | No recent travel history available. | + + documented as of this encounter Functional Status + + + + | Functional Status | Response | Date of Assessment | + + + + | Are you deaf or do you have serious | No | 01/09/2019 | | difficulty hearing? | | | + + + + | Are you blind or do you have serious | No | 01/09/2019 | | difficulty seeing, even when wearing | | | | glasses? | | | + + + + | Do you have serious difficulty walking or | Yes | 01/09/2019 | | climbing stairs? (5 years old or older) | | | + + + + | Do you have difficulty dressing or bathing? | Yes | 01/09/2019 | | (5 years old or older) | | | + + + + | Because of a physical, mental, or emotional | Yes | 01/09/2019 | | condition, do you have difficulty doing | | | | errands alone such as visiting a doctor's | | | | office or shopping? [15 years old or | | | | older)] | | | + + + + + + + + | Cognitive Status | Response | Date of Assessment | + + + + | Because of a physical, mental, or emotional | No | 01/09/2019 | | condition, do you have serious difficulty | | | | concentrating, remembering, or making | | | | decisions? (5 years old or older) | | | + + + + documented as of this encounter Plan of Treatment Not on filedocumented as of this encounter Visit Diagnoses Not on filedocumented in this encounter"
--- OUTSIDE RECORDS SUMMARY | ~2019-05-07 | XMS | Encounter Summary ---
Demographics + + + | Address | [address] | | | [place] [address] | + + + | Home Phone | | + + + | Preferred Language | Unknown | + + + | Marital Status | | + + + | Sabianist Affiliation | 1027 | + + + | Race | Unknown | + + + | Ethnic Group | Unknown | + + + Author + + + | Author | [facility] | | | and [place] | + + + | Organization | [facility] | | | and [place] | [...] [place] | | | | | [address] | | + + + + + | Dakota Lamas | ECON | Unknown | | + + + + + | Hu Rosenberg | ECON | [place] | | + + + + + Care Team Providers + +------+ + | Care Editor Farm Journal Name | Role | Phone | + +------+ + | Sang Chong | PCP | | | MD | | | + +------+ + Reason for Referral Diagnostic/Screening (Routine) +--------+--------+ + + + + | Status | Reason | Specialty | Diagnoses / | Referred By | Referred To | | | | | Procedures | Contact | Contact | +--------+--------+ + + + + | Closed | | Radiology | Diagnoses | Gamaliel, | [facility] | | | | | Shimon | Intra Op [address] | | | | | Gastrointest | MD Erick | [address] | | | | | inal | [address] | [place], [place] | | | | | hemorrhage, | [place] | [address] | | | | | unspecified | Randal E | Phone: | | | | | gastrointest | [place], [place] | [phone] | | | | | inal | [address] | Fax: | | | | | hemorrhage | Phone: | [phone] | | | | | type | [phone] | | | | | | Procedures | Fax: | | | | | | IR Placement | [phone] | | | | | | IVC Filter | | | +--------+--------+ + + + + Diagnostic/Screening (Routine) +--------+--------+ + + + + | Status | Reason | Specialty | Diagnoses / | Referred By | Referred To | | | | | Procedures | Contact | Contact | +--------+--------+ + + + + | Closed | | Radiology | Diagnoses | Gamaliel, | [facility] | | | | | | Shimon | Intra Op [address] | | | | | Gastrointest | MD Erick | [address] | | | | | inal | [address] | [place], [place] | | | | | hemorrhage, | [place] | [address] | | | | | unspecified | Randal E | Phone: | | | | | gastrointest | [place], [place] | [phone] | | | | | inal | [address] | Fax: | | | | | hemorrhage | Phone: | [phone] | | | | | type | [phone] | | | | | | Procedures | Fax: | | | | | | IR Placement | [phone] | | | | | | IVC Filter | | | +--------+--------+ + + + + Reason for Visit Diagnostic/Screening (Routine) +--------+--------+ + + + + | Status | Reason | Specialty | Diagnoses / | Referred By | Referred To | | | | | Procedures | Contact | Contact | +--------+--------+ + + + + | Closed | | Radiology | Diagnoses | Gamaliel, | [facility] | | | | | | Shimon | Intra Op [address] | | | | | Gastrointest | MD Erick | [address] | | | | | inal | [address] | [place], [place] | | | | | hemorrhage, | [place]re | [address] | | | | | unspecified | Randal E | Phone: | | | | | gastrointest | [place], [place] | [phone] | | | | | inal | [address] | Fax: | | | | | hemorrhage | Phone: | | | | | | type | [phone] | | | | | | Procedures | Fax: | | | | | | IR Placement | [phone] | | | | | | IVC Filter | | | +--------+--------+ + + + + Encounter Details +--------+ + + + + | Date | Type | Department | Care Team | Description | +--------+ + + + + | 04/15/ | Hospital | [facility] | Shimon Alston | Gastrointestinal | | 2019 | Encounter | CENTER IR INTRA OP | MD Erick [address] | hemorrhage, | | | | [address] | Daysi Calderon | unspecified | | | | [place], [place] | [place] [address] | gastrointestinal | | | | [address] | [phone] | hemorrhage type | | | | [phone] | | | +--------+ + + + [...] + + documented as of this encounter Last Filed Vital Signs + + + + | Vital Sign | Reading | Time Taken | + + + + | Blood Pressure | 132/59 | 04/15/2019 1000 PDT | + + + + | Pulse | 70 | 04/15/2019 1000 PDT | + + + + | Temperature | 36.8 C (98.3 F) | 04/15/2019742 PDT | + + + + | Respiratory Rate | 20 | 04/15/2019924 PDT | + + + + | Oxygen Saturation | 92% | 04/15/2019 1000 PDT | + + + + | Inhaled Oxygen | - | - | | Concentration | | | + + + + | Weight | 87.9 kg (193 lb 12.6 | 04/15/2019742 PDT | | | oz) | | + + + + | Height | 170.2 cm (5' 7") | 04/15/2019742 PDT | + + + + | Body Mass Index | 30.35 | 04/15/2019 0743 PDT | + + + + documented in this encounter Functional Status + + + [...] + + documented as of this encounter Discharge Instructions Instructions Shannon Epps RN - 04/15/2019 Understanding Inferior Vena Cava (IVC) Filter Placement An inferior vena cava (IVC) filter is a small device that can stop blood clots from going u p into the lungs. The inferior vena cava is a large vein in the middle of your body. The dev ice is put in during a short surgery. What isDVT? Veins are the blood vessels that bring oxygen-poor blood back to the heart. A deep vein thr ombosis (DVT) is a blood clot that forms in a vein deep inside the body. In most cases, this clot forms inside one of the deep veins of the thigh or lower leg. DVT is a serious medical condition that can cause swelling, pain, and tenderness in your leg. In some cases, a deep clot in a leg vein can break free and stick in a vessel in the lung. This can cause a blocka ge in the vessel called a pulmonary embolism. Pulmonary embolism can cause severe shortness of breath and even sudden . Why IVC filter placement is done An IVC filter is one method to help prevent pulmonary embolism. Your inferior vena cava (IV C) is the major vein that brings oxygen-poor blood from the lower body back to the heart. Th e heart then pumps the blood to the lungs to turkey picker oxygen. An IVC filter is a small, wiry device. When the filter is placed in your IVC, the blood flows past the filter. The filter c atches blood clots and stops them from moving up to the heart and lungs. This helps to preve nt a pulmonary embolism. It's important to understand that an IVC filter does not protect against DVT. You may still get a DVT. The filter helps to protect you from a life-threatening pulmonary embolism if yo u have a DVT. You might need an IVC filter if you have a DVT or pulmonary embolism, or have had either of these in the past. Your healthcare provider may advise an IVC filter if: You can't take blood thinner medicine You took blood thinner medicine and it didn't work How IVC filter placement is done The procedure is done by an interventional radiologist or a vascular surgeon and a team of specialized nurses. Your healthcare provider will make a small cut (incision) in your groin. This is to reach a major vein leading to the IVC. Your healthcare provider will put a long thin tube (catheter) containing the filter into this vein. Your healthcare provider will use continuous X-rays (fluoroscopy) and move the tube up into the IVC. Your healthcare provider will release the filter into the IVC. The filter will expand and attach itself to the montesinos of your IVC. Risks of IVC filter placement All procedures have risks. The risks of this procedure include: Infection Too much bleeding Allergic reaction Damage to the blood vessel at the insertion site Blockage of blood flow through the vena cava, which can cause leg swelling A filter that travels to the heart or lungs, causing injury or A filter that pierces through the inferior vena cava, causing pain or damage to other or geovanni Problem with placement of the filter Continued risk of a blood clot that travels to the lungs Kidney failure Your risks may vary based on your overall health, the severity of your condition, and other factors. Ask your healthcare provider about which risks apply most to you. Date Last Reviewed: 11/15/201519990012-4632 [employer]. [address] [place] [address], [place] [id number]. All righ ts reserved. This information is not intended as a substitute for professional medical care. Always follow your healthcare professional's instructions. Recovery After Procedural Sedation (Adult) You have been given medicine by vein to make you sleep during your procedure. This may have included both a pain medicine and sleeping medicine. Most of the effects have worn off. But you may still have some drowsiness for the next 6 to 8 hours. Home care Follow these guidelines when you get home: For the next 8 hours, you should be watched by a responsible adult. This person should m malik sure your condition is not getting worse. Don't drink any alcoholfor the next [address], operate dangerous machinery,make important business or personal decisions , or sign legal documentsduring the next 24 hours. Note: Your healthcare provider may tell you not to take any medicine by mouth for pain or s leep in the next 4 hours. These medicines may react with the medicines you were given in the hospital. This could cause a much stronger response than usual. Follow-up care Follow up with your healthcare provider if you are not alert and back to your usual level o f activity within 12 hours. When to seek medical advice Call your healthcare provider right away if any of these occur: Drowsiness gets worse Weakness or dizziness gets worse Repeated vomiting You can't be awakened Date Last Reviewed: 05/03/201619999513-7134 [employer]. [address] [place] [address]. All righ ts reserved. This information is not intended as a substitute for professional medical care. Always follow your healthcare professional's instructions. documented in this encounter Medications at Time of Discharge + + + +---------+ + + | Medication | Sig | Dispensed | Refills | Start | End Date | | | | | | Date | | + + + +---------+ + + | acetaminophen | Take 2 tablets by | 120 | 0 | 01/10/20 | | | (TYLENOL) 325 mg | mouth every 4 hours | tablet | | 19 | | | tablet | as needed for Pain. | | | | | + + + +---------+ + + | Cholecalciferol | Vitamin D3 | | 0 | | | | (VITAMIN D3 PO) | | | | | | + + + +---------+ + + | Docusate Calcium | Stool Softener | | 0 | | | | (STOOL SOFTENER PO) | | | | | | + + + +---------+ + + | Elastic Bandages & | 2 Units by Does not | 2 each | 2 | 09/13/19 | | | Supports (MEDICAL | apply route Daily. | | | 13 | | | COMPRESSION | thigh high or | | | | | | STOCKINGS) MISC | pantyhose style | | | | | | | compression | | | | | | | stocking, 20-30 mm | | | | | | | of mercury | | | | | | | compression. | | | | | + + + +---------+ + + | furosemide (LASIX) | Take 1 tablet by | | 0 | | | | 80 mg tablet | mouth Daily. | | | | | + + + +---------+ + + | HYDROmorphone | Inject 0.4 mg into | | 0 | | | | (DILAUDID) injection | the vein every hour | | | | | | | as needed. | | | | | + + + +---------+ + + | | Take 1 tablet by | | 0 | | | | [id number]-Nokqcgntrvfu-A1-B1 | mouth Daily. | | | | | | 2 (FOLTANX) 3-35-2 | | | | | | | MG TABS | | | | | | + + + +---------+ + + | | Place 1 drop into | | 0 | 10/16/20 | | | vwhdhedn-tnstbclxf-i | the left eye 3 times | | | 18 | | | examethasone | daily. | | | | | | (MAXITROL) 0.1 % | | | | | | | ophthalmic | | | | | | | suspension | | | | | | + + + +---------+ + + | ondansetron | Inject 4 mg into the | | 0 | | | | (ZOFRAN) 2 mg/mL | vein every 6 hours | | | | | | SOLN | as needed. | | | | | + + + +---------+ + + | ondansetron | As needed for | 2 | 0 | 02/13/20 | | | (ZOFRAN) 4 mg tablet | nausea; stop prep; | tablet | | 19 | | | | take 1 tablet; wait | | | | | | | 30 min then resume | | | | | | | prep; repeat 1x prn | | | | | + + + +---------+ + + | pantoprazole | Take 1 tablet by | 30 | 0 | 01/11/20 | | | (PROTONIX) 40 mg | mouth every morning | tablet | | 19 | | | tablet | (before breakfast). | | | | | + + + +---------+ + + | phytonadione | Inject 10 mg under | | 0 | | | | (AQUA-MEPHYTON) 10 | the skin once. | | | | | | MG/ML injection | | | | | | + + + +---------+ + + | POTASSIUM PO | potassium | | 0 | | | + + + +---------+ + + | sodium | Take 177 mLs by | 2 | 0 | 02/12/20 | | | sulfate-potassium | mouth See Admin | Bottle | | 19 | | | sulfate-magnesium | Instructions. Take | | | | | | sulfate (SUPREP | one kit, first dose | | | | | | BOWEL PREP KIT) oral | at 4pm, second dose | | | | | | solution | at 8pm day before | | | | | | | procedure | | | | | + + + +---------+ + + | warfarin | Take 1 mg by mouth | | 0 | 03/19/20 | | | (COUMADIN) 1 mg | Daily. | | | 19 | | | tablet | | | | | | + + + +---------+ + + | warfarin | Take 1 tablet by | | 0 | | | | (COUMADIN) 4 MG | mouth Daily. | | | | | | tablet | | | | | | + + + +---------+ + + documented as of this encounter Progress Notes Shannon Epps RN - 04/15/2019 1013 PDTPt arrived at hospital with IJ in place and PIV in place. Per pt and family request, IJ and PIV will remain in place. Pt has been using it fo r IJ for TPN and IV access is difficult. Pt daughter advised me that [facility] Pt has a swing bed there. Shannon Epps RN hShannon holcomb RN - 03/19 0936 PDTDischarge instructions given to patient and family. Patient vitals WNL. Odilia ent in no apparent distress. All questions have been answered. Discussed signs and symptom s of surgical site infection, DVT and PE prevention. No prescriptions given. Shannon Epps RN documented in this encoun ter Plan of Treatment Not on filedocumented as of this encounter Procedures + +--------+ + + + | Procedure Name | Priori | Date/Time | Associated Diagnosis | Comments | | | ty | | | | + +--------+ + + + | IR PLACEMENT IVC | Routin | 04/15/2019 | Gastrointestinal | Results for this | | FILTER | e | 9:46 PDT | hemorrhage, | procedure are in the | | | | | unspecified | results section. | | | | | gastrointestinal | | | | | | hemorrhage type | | + +--------+ + + + | PTT | STAT | 04/15/2019 | | Results for this | | | | 8:16 PDT | | procedure are in the | | | | | | results section. | + +--------+ + + + | PROTIME INR | STAT | 04/15/2019 | | Results for this | | | | 8:16 PDT | | procedure are in the | | | | | | results section. | + +--------+ + + + | CBC WITH | STAT | 04/15/2019 | | Results for this | | DIFFERENTIAL | | 8:16 PDT | | procedure are in the | | | | | | results section. | + +--------+ + + + documented in this encounter Results IR Placement IVC Filter (04/15/2019 9:46 PDT) + + | Specimen | + + | | + + + + + | Narrative | Performed At | + + + | 1. ULTRASOUND | [facility] | | GUIDED RIGHT IJ PUNCTURE2. INFERIOR VENA CAVA CATHETERIZATION AND | | | INFERIOR VENA CAVOGRAM3. IVC FILTER PLACEMENT4. 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 PROCEDURE:The risks, benefits and | | | alternatives were discussed with the patient;consent was obtained and | | | placed in the patient's chart. The risksincluded but were not limited | | | to filter occlusion causing debilitatingleg swelling, inferior vena | | | cava perforation causing life threateningbleeding, pneumothorax, | | | carotid or subclavian artery puncture, and lifethreatening pulmonary | | | embolism, renal failure and allergic reaction. The patient was then | | | brought to the procedure room and placed in thesupine position where | | | the right side of the neck was sterilely preppedand draped in the | | | usual fashion. After local anesthetic wasadministered, a micropuncture | | | needle was utilized to access the rightinternal jugular vein under | | | ultrasound guidance. Using standardSeldinger technique, there was | | | placement of a 4 Yemeni BerensteinCatheter in the left external iliac | | | vein and an inferior venacavogramwas performed. The catheter was | | | exchanged for the filter deliverysheath. This was positioned in the | | | infrarenal suprailiac position andthe Eric Tulip type IVC filter | | | was deployed. A venogram wasperformed through the guiding sheath | | | following filter placement. The sheath was then removed. Hemostasis | | | was achieved with manualcompression. Fluoro Time: 2.3 minute(s) The | | | total number of images: 2 Contrast: 24ml omnipaque 240 | | | Medications:Fentanyl 50 mcg and Versed 1 mg were utilized for | | | conscious sedation.The conscious sedation nurse who monitored the | | | blood pressure, heartrate, and pulse oximeter during the examination | | | administered themedications. The patient was monitored for | | | approximately 30 minutes. FINDINGS:Ultrasound demonstrated widely | | | patent compressible right internaljugular vein. A permanent | | | sonographic image was obtained and stored. Fluoroscopic guidance | | | demonstrated the catheter in good position. The inferior venacavogram | | | demonstrated no evidence for duplicationanomaly or renal vein anomaly. | | | The venogram through the existing catheter demonstrated | | | excellentposition of the IVC filter. IMPRESSION:Uncomplicated IVC | | | filter placement via ultrasound guided right IJapproach. Signed by: | | | Brant Alston MatthewSign Date/Time: 04/15/2019 10:32 AM | | |Contrast: 24ml omnipaque 240 | | | | | |Medications: | | |Fentanyl 50 mcg and Versed 1 mg were utilized for conscious sedation. | | |The conscious sedation nurse who monitored the blood pressure, heart | | |rate, and pulse oximeter during the examination administered the | | |medications. The patient was monitored for approximately 30 minutes. | | | | | |FINDINGS: | | |Ultrasound demonstrated widely patent compressible right internal | | |jugular vein. A permanent sonographic image was obtained and stored. | | | | | |Fluoroscopic guidance demonstrated the catheter in good position. | | | | | |The inferior venacavogram demonstrated no evidence for duplication | | |anomaly or renal vein anomaly. | | | | | |The venogram through the existing catheter demonstrated excellent | | |position of the IVC filter. | | | | | |IMPRESSION: | | |Uncomplicated IVC filter placement via ultrasound guided right IJ | | |approach. | | | | | | | | | | | |Signed by: Brant Alston Matthew | | |Sign Date/Time: 04/15/2019 10:32 AM | | | | | + + + + + | Procedure Note | + + | Librado, Rad Results In - 04/15/2019 1035 PDT | | 1. ULTRASOUND GUIDED RIGHT IJ PUNCTURE | | 2. INFERIOR VENA CAVA CATHETERIZATION AND INFERIOR VENA CAVOGRAM | | 3. IVC FILTER PLACEMENT | | 4. VENOGRAM THROUGH EXISTING CATHETER | | | | CLINICAL INFORMATION: | | Recurrent bilateral DVT while on anticoagulation | | | | COMPARISON: | | None. | | | | PROCEDURE: | | The risks, benefits and alternatives were discussed with the patient; | | consent was obtained and placed in the patient's chart. The risks | | included but were not limited to filter occlusion causing debilitating | | leg swelling, inferior vena cava perforation causing life threatening | | bleeding, pneumothorax, carotid or subclavian artery puncture, and life | | threatening pulmonary embolism, renal failure and allergic reaction. | | | | The patient was then brought to the procedure room and placed in the | | supine position where the right side of the neck was sterilely prepped | | and draped in the usual fashion. After local anesthetic was | | administered, a micropuncture needle was utilized to access the right | | internal jugular vein under ultrasound guidance. Using standard | | Seldinger technique, there was placement of a 4 Yemeni Berenstein | | Catheter in the left external iliac vein and an inferior venacavogram | | was performed. The catheter was exchanged for the filter delivery | | sheath. This was positioned in the infrarenal suprailiac position and | | the Eric Tulip type IVC filter was deployed. A venogram was | | performed through the guiding sheath following filter placement. | | | | The sheath was then removed. Hemostasis was achieved with manual | | compression. | | | | Fluoro Time: 2.3 minute(s) The total number of images: 2 | | | | Contrast: 24ml omnipaque 240 | | | | Medications: | | Fentanyl 50 mcg and Versed 1 mg were utilized for conscious sedation. | | The conscious sedation nurse who monitored the blood pressure, heart | | rate, and pulse oximeter during the examination administered the | | medications. The patient was monitored for approximately 30 minutes. | | | | FINDINGS: | | Ultrasound demonstrated widely patent compressible right internal | | jugular vein. A permanent sonographic image was obtained and stored. | | | | Fluoroscopic guidance demonstrated the catheter in good position. | | | | The inferior venacavogram demonstrated no evidence for duplication | | anomaly or renal vein anomaly. | | | | The venogram through the existing catheter demonstrated excellent | | position of the IVC filter. | | | | IMPRESSION: | | Uncomplicated IVC filter placement via ultrasound guided right IJ | | approach. | | | | | | | | Signed by: Brant Alston Matthew | | Sign Date/Time: 04/15/2019 10:32 AM | + + + +---------+ + + | Performing | Address | City/State/Zipcode | Phone Number | | Organization | | | | + +---------+ + + | [facility] | | | | + +---------+ + + PTT (04/15/2019 8:16 PDT) + + + + + + | Component | Value | Ref Range | Performed | Pathologist | | | | | At | Signature | + + + + + + | PTT | 29Comment: Testing | 23 - 32 seconds | [facility] | | | | performed at [facility] | | LABORATORY | | | | [facility];[place], [place] | | | | | | [address] | | | | + + + + + + + + | Specimen | + + | Blood | + + + + + + + | Performing | Address | City/State/Zipcode | Phone Number | | Organization | | | | + + + + + | [facility] | [address] | [place] [address] | [phone] | + + + + + Protime INR (04/15/2019 8:16 PDT) + + + + + + | Component | Value | Ref Range | Performed | Pathologist | | | | | At | Signature | + + + + + + | INR | 1.0Comment: REFERENCE | | [facility] | | | | RANGE:0.9 - | | LABORATORY | | | | 1.2 NON-ANTICOAGULATE | | | | | | D2.0 - 3.0 ALL OTHER | | | | | | THERAPEUTIC | | | | | | INDICATIONS2.5 - 3.5 | | | | | | MECHANICAL HEART VALVES, | | | | | | RECURRENT OR SYSTEMIC | | | | | | EMBOLISMTesting | | | | | | performed at [facility];[address] | | | | | | [facility];[place], [place] | | | | | | [address] | | | | + + + + + + + + | Specimen | + + | Blood | + + + + + + + | Performing | Address | City/State/Zipcode | Phone Number | | Organization | | | | + + + + + | [facility] | [address] | [place] [address] | [phone] | + + + + + CBC with Differential (04/15/2019 8:16 PDT) + + + + + + | Component | Value | Ref Range | Performed | Pathologist | | | | | At | Signature | + + + + + + | WBC | 9.27 | 3.80 - 11.00 | [facility] | | | | | K/uL | LABORATORY | | + + + + + + | RBC | 4.56 | 3.70 - 5.10 | [facility] | | | | | M/uL | LABORATORY | | + + + + + + | Hemoglobin | 10.7 (L) | 11.3 - 15.5 | [facility] | | | | | g/dL | LABORATORY | | + + + + + + | Hematocrit | 33.8 (L) | 34.0 - 46.0 % | [facility] | | | | | | LABORATORY | | + + + + + + | MCV | 74.1 (L) | 80.0 - 100.0 fl | [facility] | | | | | | LABORATORY | | + + + + + + | MCH | 23.4 (L) | 27.0 - 34.0 pg | [facility] | | | | | | LABORATORY | | + + + + + + | MCHC | 31.6 (L) | 32.0 - 35.5 | [facility] | | | | | g/dL | LABORATORY | | + + + + + + | RDW-SD | 56.4 (H) | 37 - 53 fl | [facility] | | | | | | LABORATORY | | + + + + + + | Platelet | 315 | 150 - 400 K/uL | [facility] | | | Count | | | LABORATORY | | + + + + + + | MPV | 8.4 | fl | [facility] | | | | | | LABORATORY | | + + + + + + | Diff Type | AUTOMATED | | [facility] | | | | | | LABORATORY | | + + + + + + | % | 62.96 | % | [facility] | | | Neutrophils | | | LABORATORY | | + + + + + + | % | 21.39 | % | [facility] | | | Lymphocytes | | | LABORATORY | | + + + + + + | Monocyte % | 10.90 | % | [facility] | | | | | | LABORATORY | | + + + + + + | Eosinophils | 3.83 | % | [facility] | | | % | | | LABORATORY | | + + + + + + | Basophils % | 0.92 | % | [facility] | | | | | | LABORATORY | | + + + + + + | Neutrophils | 5.84 | 1.90 - 7.40 | [facility] | | | , Absolute | | K/uL | LABORATORY | | + + + + + + | Absolute | 1.98 | 1.00 - 3.90 | [facility] | | | Lymphocytes | | K/uL | LABORATORY | | + + + + + + | Absolute | 1.01 (H) | 0.00 - 0.80 | [facility] | | | Monocytes | | K/uL | LABORATORY | | + + + + + + | Eosinophils | 0.36 | 0.00 - 0.50 | [facility] | | | , Absolute | | K/uL | LABORATORY | | + + + + + + | Basophils, | 0.09 | 0.00 - 0.10 | [facility] | | | Absolute | | K/uL | LABORATORY | | + + + + + + | RBC | 1+Comment: | | [facility] | | | Morphology | ANISO1+HYPO2+MICRONORMAL | | LABORATORY | | | | PLT MORPHTesting | | | | | | performed at [facility];[address] | | | | | | [facility];[place], [place] | | | | | | [address] | | | | | |MICRO | | | | | |NORMAL PLT MORPH | | | | | |Testing performed at [facility];[address] [place] [address];[place] [address] | | | | | | | | | | + + + + + + + + | Specimen | + + | Blood | + + + + + + + | Performing | Address | City/State/Zipcode | Phone Number | | Organization | | | | + + + + + | [facility] | [address] | [place] [address] | [phone] | + + + + + documented in this encounter Visit Diagnoses + + | Diagnosis | + + | Gastrointestinal hemorrhage, unspecified gastrointestinal hemorrhage type | + + documented in this encounter Administered Medications + +--------+ +--------+------+------+ | Medication Order | MAR | Action | Dose | Rate | Site | | | Action | Date | | | | + +--------+ +--------+------+------+ | fentaNYL (PF) injection | Given | 04/15/20 | 50 mcg | | | | Intravenous, PRN, Starting Mon | | 19 9:16 | | | | | 04/15/19 at 0916 | | PDT | | | | + +--------+ +--------+------+------+ +---+---+ | | | +---+---+ + +-------+ +--------+---+---+ | iohexol (OMNIPAQUE 240) 240 | Given | 04/15/20 | 24 mLs | | | | mg/mL injection Intravenous, | | 19 9:28 | | | | | PRN, Starting 04/15/19 at 0928 | | PDT | | | | + +-------+ +--------+---+---+ +---+---+ | | | +---+---+ + +-------+ +--------+---+---+ | lidocaine 1% injection PRN, | Given | 04/15/20 | 10 mLs | | | | Starting 04/15/19 at 0916 | | 19 9:16 | | | | | | | PDT | | | | + +-------+ +--------+---+---+ +---+---+ | | | +---+---+ + +-------+ +------+---+---+ | midazolam (VERSED) injection | Given | 04/15/20 | 1 mg | | | | Intravenous, PRN, Starting Mon | | 19 9:16 | | | | | 04/15/19 at 0916 | | PDT | | | | + +-------+ +------+---+---+ +---+---+ | | | +---+---+ + +-------+ +---+---+---+ | povidone-iodine 5 % external | Given | 04/15/20 | | | | | solution Topical, PRN, Other, | | 19 8:12 | | | | | pre-op, Starting Mon04/15/19 at | | PDT | | | | | 0801, For 1 dose, Recovery/Phase | | | | | | | I | | | | | | + +-------+ +---+---+---+ +---+---+ | | | +---+---+ + +---------+ +---+ +---+ | sodium chloride 0.9% (NS) | New Bag | 04/15/20 | | 50 mL/hr | | | infusion at 50 mL/hr, | | 19 8:12 | | | | | Intravenous, CONTINUOUS, Starting | | PDT | | | | | 04/15/19 at 0800, OK to use | | | | | | | implantable port., Pre-op | | | | | | + +---------+ +---+ +---+ +---+---+ | | | +---+---+ documented in this encounter
--- OUTSIDE RECORDS SUMMARY | ~2019-05-07 | XMS | Encounter Summary ---
Demographics + + + | Address | [address] | | | [place] [address] | + + + | Home Phone | | + + + | Preferred Language | Unknown | + + + | Marital Status | | + + + | Rastafari Affiliation | 1027 | + + + | Race | Unknown | + + + | Ethnic Group | Unknown | + + + Author + + + | Author | and [facility] | | | and [place] | + + + | Organization | and [facility] | | | and [place] [...] [place] | | | | | [address] | | + + + + + | Dakota Lamas | ECON | Unknown | | + + + + + | Hu Rosenberg | ECON | [place] | | + + + + + Care Team Providers + +------+ + | Care Medical Doctor Md Name | Role | Phone | + +------+ + | Sang Chong | PCP | | | MD | | | + +------+ + Reason for Visit + + + | Reason | Comments | + + + | Appointment | Follow Up | + + + Encounter Details +--------+ + + + + | Date | Type | Department | Care Team | Description | +--------+ + + + + | 04/09/ | Telephone | [facility] | Deon Barrios, | Appointment (Follow | | 2018 | | ORTHOPEDIC SURGERY | [address] | Up) | | | | [address] [facility] | [place] | | | | | [place] | [address] | | | | | [address] | | | | | | [phone] | | | +--------+ + + + [...]
--- OUTSIDE RECORDS SUMMARY | ~2019-05-07 | XMS | Encounter Summary ---
Demographics + + + | Address | [address] | | | [place] [address] | + + + | Home Phone | | + + + | Preferred Language | Unknown | + + + | Marital Status | | + + + | Gnosticist Affiliation | 1027 | + + + | Race | Unknown | + + + | Ethnic Group | Unknown | + + + Author + + + | Author | [facility]erged With [facility] | | | and [place] | + + + | Organization | Merged With [facility] | | | and [place] [...] [place] | | | | | [address] | | + + + + + | Dakota Lamas | ECON | Unknown | | + + + + + | Hu Rosenberg | ECON | [place] | | + + + + + Care Team Providers + +------+ + | Care Investment Specialist Name | Role | Phone | + +------+ + | Sang Chong | PCP | | | MD | | | + +------+ + Reason for Visit + + + | Reason | Comments | + + + | Follow-up(Procedure) | | + + + Encounter Details +--------+ + + + + | Date | Type | Department | Care Team | Description | +--------+ + + + + | 04/16/ | Telephone | [facility] | Shimon Mccartney, | Follow-up(Procedure) | | 2018 | | INTERVENTIONAL | RN | | | | | RADIOLOGY [address] | | | | | | [address] | | | | | | [place] | | | | | | [address] | | | | | | [phone] | | | +--------+ + + + [...]
--- OUTSIDE RECORDS SUMMARY | ~2019-05-07 | XMS | Encounter Summary ---
Demographics + + + | Address | [address] | | | [place] [address] | + + + | Home Phone | | + + + | Preferred Language | Unknown | + + + | Marital Status | | + + + | Latter-Day Affiliation | 1027 | + + + | Race | Unknown | + + + | Ethnic Group | Unknown | + + + Author + + + | Author | [facility] | | | and [place] | + + + | Organization | [facility] | | | and [place] [...] [place] | | | | | [address] | | + + + + + | Dakota Lamas | ECON | Unknown | | + + + + + | Hu Rosenberg | ECON | [place] | | + + + + + Care Team Providers + +------+ + | Care Chainstitch Sewing Machine Operator Name | Role | Phone | + +------+ + | Sang Chong | PCP | | | MD | | | + +------+ + Encounter Details +--------+ + + + + | Date | Type | Department | Care Team | Description | +--------+ + + + + | 02/14/ | Hospital | [facility] | Deon Barrios, | Periprosthetic | | 2019 | Encounter | MED [facility] DES XRAY | [address] [facility] | supracondylar | | | | [address] [place] | [place] | fracture of femur, | | | | [place], [place] | [address] | initial encounter; | | | | [address] | | S/P ORIF (open | | | | [phone] | | reduction internal | | | | | | fixation) fracture | +--------+ + + + + Social [...] + + documented as of this encounter Medications at Time of Discharge [...] | | 0 | | | | [id number] | mouth Daily. | | | | | | 2 (FOLTANX) 3-35-2 | | | | | | | MG TABS | | | | | | + + + +---------+ + + | | Place 1 drop into | | 0 | 05/01/20 | | | [id number]-[id number] | the left eye 3 times | [...] mLs by | 2 | 0 | 02/13/20 | | | sulfate-potassium | mouth See [...] | + +--------+ + + + | XR KNEE RIGHT 1 - 2 | Routin | 02/14/2019 | Periprosthetic | Results for this | | VW | e | 13:05 PDT | supracondylar | procedure are in the | | | | | fracture of femur, | results section. | | | | | initial encounter | | | | | | S/P ORIF (open | | | | | | reduction internal | | | | | | fixation) fracture | | + +--------+ + + + documented in this encounter Results XR Knee Right 1 - 2 Vw (02/14/2019 13:05 PDT) + + | Specimen | + + | | + + + + + | Narrative | Performed At | + + + | XR KNEE RIGHT 1 - 2 VW 02/14/2019 12:55 PM HISTORY: S/P ORIF Right | [facility] | | Displaced Femur Fracture DOS:01/02/19. COMPARISON: None. | | | FINDINGS: Lateral plate and screw hardware are seen from the mid to | | | distal femur bridging a fracture of the distal femur in anatomic | | | alignment. There is no significant healing at this time. Hardware for | | | knee arthroplasty is observed. Bone mineralization is normal. Soft | | | tissues are unremarkable. IMPRESSION - Status post ORIF of distal | | | femoral fracture with no significant healing. Dictated and Signed | | | by: Derek Montes MD Electronically signed: 02/14/2019 2:01 PM | | + + + + + | Procedure Note | + + | Robby Pavon Results In - 02/14/2019 1404 PDT XR KNEE RIGHT 1 - 2 VW 02/14/2019 12:55 PM | | | | HISTORY: S/P ORIF Right Displaced Femur Fracture DOS:01/02/19. | | | | COMPARISON: None. | | | | FINDINGS: | | Lateral plate and screw hardware are seen from the mid to distal femur bridging | | a fracture of the distal femur in anatomic alignment. There is no significant | | healing at this time. Hardware for knee arthroplasty is observed. Bone | | mineralization is normal. Soft tissues are unremarkable. | | | | IMPRESSION - | | Status post ORIF of distal femoral fracture with no significant healing. | | | | Dictated and Signed by: Derek Montes MD | | Electronically signed: 02/14/2019 2:01 PM | + + + +---------+ + + | Performing | Address | City/State/Zipcode | Phone Number | | Organization | | | | + +---------+ + + | [facility] | | | | + +---------+ + + documented in this encounter Visit Diagnoses + + | Diagnosis | + + | Periprosthetic supracondylar fracture of femur, initial encounter | + + | S/P ORIF (open reduction internal fixation) fracture | + + documented in this encounter"
--- OUTSIDE RECORDS SUMMARY | ~2019-05-07 | XMS | Encounter Summary ---
Demographics + + + | Address | [address] | | | [place] [address] | + + + | Home Phone | | + + + | Preferred Language | Unknown | + + + | Marital Status | | + + + | Buddhist Affiliation | Unknown | + + + | Race | White | + + + | Ethnic Group | Not or | + + + Author + + + | Author | [facility] | + + + | Organization | [facility] | + + + | Address | Unknown | + + + | Phone | Unavailable | + + + Support + + +---------+ + | Name | Relationship | Address | Phone | + + +---------+ + | Nabil Salvador | ECON | Unknown | | + + +---------+ + Care Team Providers + +------+ + | Care Competitive Athlete Name | Role | Phone | + +------+ + | Sang Chong MD | PCP | | + +------+ + Encounter Details +--------+---------+ + + + | Date | Type | Department | Care Team | Description | +--------+---------+ + + + | 05/01/ | Office | [facility] | Gautam Walker MD | Neoplasm of | | 2018 | Visit | [facility] | [address] | uncertain behavior | | | | [place] [address] | Blvd [place], [place] | of skin of eyelid | | | | [facility] | [address] | (Primary Dx); | | | | Clinic [place], | [phone] | Obstruction of | | | | [place] [address] | | lacrimal canaliculus | | | | [phone] | | of left side; | | | | | | Chronic rhinitis; | | | | | | Deviated septum; | | | | | | Acquired | | | | | | nasolacrimal duct | | | | | | obstruction, left | +--------+---------+ + + + Social History + +-------+ [...] documented as of this encounter Progress Notes Gautam Walker MD - 05/01/2018 1:40 PM PDTFormatting of this note might be different from t ruchi original. Jeanna Salvador is a 77 y.o. female. 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 The patient notes enlargement of a left upper lid mass for the past several years. She gets chronic sinus issues and wonders if somehow this is all related. +mucus/crusting, occasiona l tearing. Denies history of facial trauma, nose or sinus surgery. She says she has always had bad sin uses, and wonders if this bump is somehow related. Review of systems: Medications, allergies, medical, surgical and family history were review ed by me at this visit utilizing a written patient history form. Pertinent positives noted in history. All else unless noted was negative (fever, wt. change, ENT, cardiovascular, respiratory, GI , urinary, skin, muscle, bones, joints, neurologic, behavioral,endocrine, psychiatric, bleed ing/blood disorders, AIDS/HIV, cancer or tumors, arthritis) Pertinent positives in the family history noted in history. All else unless noted was negative (endocrine, cancer or tumors, cardiovascular, cataracts, retina, strabismus, amblyopia, low vision or blindness, refractive error, glaucoma, color o r night blindness or unexplained vision loss). Exam: Patient is alert and oriented x 3 Visual Acuity: Vacc VAph RE LE 20/30 20/30 Pupil Exam: ERL & No APD Motility: RE LE 0 0 0 0 0 0 0 0 Lid Measurements: RE (mm) LE (mm) Sup SS Crease HT VPF 8 8 LF MRDI 3 3 Inf SS Lag 0 0 Facial Exam: Left upper lid with 7 x5mm mass on the lid margin medially. It is overlying the canaliculus . Bilateral lower lids with reasonable lower lid tone and snap back Adenopathy: None SLE: C/S quiet without masses OU K clear without infiltrate OU AC Deep and quiet OU Iris without neovascularization OU Lens clear OU Intraocular Pressure: RE 15 mm hg LE 15 mm hg Posterior segment: M&N OU @ 13:20 Vitreous: clear, both eyes. Fundus: Optic disc: 0.3 cup/disc ratio, pink, flat, both eyes. Macula: no edema or exudates, both eyes. Vessels: no notching or hemorrhage, both eyes. Periphery: flat 360 without breaks or tears, both eyes. Basal Tear Secretion Test: RE 15, LE 15 Pandya testing performed on the left today, see attached details (left superior canaliculus completely obstructed, inferior irrigates into nose with mild resistance) Nasal endoscopy performed today, see attached details (deviated septum leftward with limite d view) External photos taken OU today. Photos demonstrate left upper lid mass Impression: 1. 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 Overall the appearance is concerning for carcinoma and warrants biopsy 2. 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 Chronic rhinosinusitis, intermittently symptomatic, may be related to NLDO. Has signific ant leftward septal deviation that would need to be corrected if needs DCR in the future Plan: Biopsy left upper lid mass performed today Will call patient with results Maxitrol TID x 1 week Follow up depending on biopsy result Procedure Note: The procedure, alternatives and risks were discussed with the patient, including potential need for additional surgery, bleeding, infection, vision loss including blindness, pain, ner ve damage, and asymmetry. Questions were answered and patient wishes to proceed with surgery . Consent signed Date of procedure: 05/01/18 Attending Surgeon: Gautam Walker M.D. Preoperative Diagnosis: Left upper lid mass Postoperative Diagnosis: Left upper lid mass Procedure: Left upper lid mass incisional biopsy Anesthesia: Local infiltration of a 1:1 mixture of 1% lidocaine with epinephrine 1:100,000 and 0.5% Marcaine Estimated Blood Loss: Minimal Complications: None Specimens: Left upper lid mass in formalin to pathology Indications: See above The procedure, alternatives and risks were discussed with the patien t at length, and the patient decided to proceed with surgery as described below. Procedure: Prior to the procedure, the operative plan and correct site were confirmed by e surgeon. The patient was placed in the supine position in the clinic chair. The standard O [place] time out protocol was observed. Attention was directed to the left upper lid mass, which measured 7 x 5mm and involved the lid margin, where one milliliter of the above-named loca l anesthetic was infiltrated. A forceps and scissors were used to excise a sales representative livestock p ortion of the mass, and was submitted in formalin to pathology. A small amount of cautery wa s used to achieve hemostasis. The drapes were removed, surgical area cleaned, and ophthalmic ointment was applied to the wound. The postoperative care instructions were explained, and the patient was discharged home, having tolerated the procedure well. Physician attestation: I have reviewed and edited history and personnel and payroll technician documentation, and performed all elements to above examination documentation. Gautam Walker M.D. Manager [facility] Reconstructive Surgery documented in this encounter Plan of Treatment Not on filedocumented as of this encounter Procedures + +--------+ + + + | Procedure Name | Priori | Date/Time | Associated Diagnosis | Comments | | | ty | | | | + +--------+ + + + | PROBE NASOLACRIMAL | Routin | 05/01/2018 | Obstruction of | Results for this | | DUCT -OS - LEFT EYE | e | 1:35 PM | lacrimal canaliculus | procedure are in the | | | | PDT | of left side | results section. | | | | | Acquired | | | | | | nasolacrimal duct | | | | | | obstruction, left | | + +--------+ + + + | NASAL ENDOSCOPY, DX | Routin | 05/01/2018 | Chronic rhinitis | Results for this | | | e | 1:34 PM | Deviated septum | procedure are in the | | | | PDT | | results section. | + +--------+ + + + | DERM PATHOLOGY | Routin | 05/01/2018 | Neoplasm of | Results for this | | | e | 1:30 PM | uncertain behavior | procedure are in the | | | | PDT | of skin of eyelid | results section. | + +--------+ + + + documented in this encounter Results PROBE NASOLACRIMAL DUCT -OS - LEFT EYE (05/01/2018 1:35 PM PDT) + + + | Narrative | Performed At | + + + | | | | Pre-Procedureconfirmed correct patient, procedure, site and consent., | | | Procedures, alternatives and risks discussed with patient. Questions | | | answered. AnesthesiaAnesthesia: none Anesthetic Medication: | | | Proparacaine 0.5% Procedure Pandya Testing Procedure Note: After | | | instillation of topical anesthesia, a Pandya dilator was used to dilate | | | the left upper and lower puncta, and the canaliculi were probed with | | | a 0-00 Reyez probe. Saline on a syringe with lacrimal cannula was | | | used to irrigate the lacrimal system without complication. Results are | | | as follows: Puncta: normal left upper and lower Canaliculi: Left | | | upper with complete obstruction in the area of the overlying mass. | | | Normal left lower Lacrimal Sac: normal on left Mumtaz Testing (left): | | | DRT pos Pandya 1 neg Pandya 2 +regurg thru upper with irrigation of the | | | lower, most in nose Nasal exam: see endoscopy . Estimated blood loss: | | | none Post OpPatient tolerated the procedure well. Complications: | | | none Patient reported pain is 0 on a 0-10 scale. | | |complication. Results are as follows: Puncta: normal left upper and lower | | |Canaliculi: Left upper with complete obstruction in the area of the | | |overlying mass. Normal left lower Lacrimal Sac: normal on left Pandya | | |Testing (left): DRT pos Pandya 1 neg Pandya 2 +regurg thru upper with | | |irrigation of the lower, most in nose Nasal exam: see endoscopy . | | |Estimated blood loss: none | | | | | | | | |Post Op | | |Patient tolerated the procedure well. | | |Complications: none | | | | | |Patient reported pain is 0 on a 0-10 scale. | | + + + NASAL ENDOSCOPY, DX (05/01/2018 1:34 PM PDT) + + + | Narrative | Performed At | + + + | | | | Pre-Procedureconfirmed correct patient, procedure, site and consent., | | | Procedures, alternatives and risks discussed with patient. Questions | | | answered. AnesthesiaAnesthesia: intranasal spray Anesthetic | | | Medication: Oxymetazoline HCL 0.025% and Lidocaine HCL 2% | | | intranasal solution Procedure PROCEDURE: Diagnostic Nasal Endoscopy | | | Diagnosis: Chronic rhinitis, deviated septum Anesthesia: Oxymetazoline | | | HCL 0.025% w/Lidocaine 2% solution Procedure: A rigid endoscope was | | | utilized to evaluate the sinonasal cavities, mucosa, sinus ostia and | | | turbinates. This revealed no polyps or purulence from the middle | | | meatus. The nasopharynx was symmetric. No masses were noted and the | | | septum was deviated leftward with limited view. Overall, signs of | | | mucosal inflammation were noted. Complications: None, patient | | | tolerated the procedure well . Estimated blood loss: none Post | | | OpPatient tolerated the procedure well. Complications: none Patient | | | reported pain is 0 on a 0-10 scale. | | |sinonasal cavities, mucosa, sinus ostia and turbinates. This revealed no | | |polyps or purulence from the middle meatus. The nasopharynx was symmetric. | | |No masses were noted and the septum was deviated leftward with limited | | |view. Overall, signs of mucosal inflammation were noted. Complications: | | |None, patient tolerated the procedure well . Estimated blood loss: none | | | | | | | | |Post Op | | |Patient tolerated the procedure well. | | |Complications: none | | | | | |Patient reported pain is 0 on a 0-10 scale. | | + + + DERM PATHOLOGY (05/01/2018 1:30 PM PDT) + + + + + + | Component | Value | Ref Range | Performed | Pathologist | | | | | At | Signature | + + + + + + | Clinical | Mass concerning for | | [facility] | | | History | carcinoma. | | DERMATOPATH | | | | | | OLOGY | | + + + + + + | Final | MELANOCYTIC NEVUS, | | [facility] | Electronically | | Pathologic | COMPOUND TYPE. (LEFT | | DERMATOPATH | signed by | | Diagnosis | UPPER EYELID)NOTE: The | | OLFAREED | Jocelin Madden | | | left upper eyelid | | | MD Victorina on | | | MELANOCYTIC NEVUS | | | 05/04/2018 at | | | extends to the surgical | | | 12:42 PM | | | margins of the specimen. | | | | | | | | | | + + + + + + | Gross | Received in formalin is | | [facility] | | | Description | a specimen labeled with | | DERMATOPATH | | | | the patient's name:A: | | OLOGY | | | | Specimen is labeled | | | | | | "Eyelid" and consists of | | | | | | an irregular incision | | | | | | of papular white-molina | | | | | | skin, 3 x 3 x 2 mm. The | | | | | | surgical margin is inked | | | | | | blue; the tissue is | | | | | | bisected, and entirely | | | | | | submitted in cassette | | | | | | A1. | | | | + + + + + + | Microscopic | There is a mostly | | [facility] | | | | well-circumscribed | | DERMATOPATH | | | Description | compound melanocytic | | OLOGY | | | | neoplasm characterized | | | | | | by round to oval nests | | | | | | and single melanocytes | | | | | | along the basal layer, | | | | | | with nests and cords | | | | | | present in the dermis. | | | | | | Most of the melanocytic | | | | | | nuclei are round to oval | | | | | | and the cells contain | | | | | | amphophilic cytoplasm. | | | | | | Immunohistochemical | | | | | | staining for melan-A is | | | | | | obtained and supports | | | | | | the above findings. 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
--- OUTSIDE RECORDS SUMMARY | ~2019-05-07 | XMS | Encounter Summary ---
Demographics + + + | Address | [address] | | | [place] [address] | + + + | Home Phone | | + + + | Preferred Language | Unknown | + + + | Marital Status | | + + + | Taoist Affiliation | 1027 | + + + | Race | Unknown | + + + | Ethnic Group | Unknown | + + + Author + + + | Author | [facility] | | | and [place] | + + + | Organization | [facility] | | | and [place] [...] [place] | | | | | [address] | | + + + + + | Dakota Lamas | ECON | Unknown | | + + + + + | Hu Rosenberg | ECON | [place] | | + + + + + Care Team Providers + +------+ + | Care Petroleum Engineering Professor Name | Role | Phone | + +------+ + | Sang Chong | PCP | | | | | | + +------+ + Encounter Details +--------+---------+ + + + | Date | Type | Department | Care Team | Description | +--------+---------+ + + + | 02/06/ | Office | [facility] [place] | Royce Alejo | Melanie (Primary Dx); | | 2018 | Visit | GASTROENTEROLOGY | MD [address] | Anemia, unspecified | | | | [address] | [address] | type | | | | [address] [place] [address] | [place] [address] | | | | | [address] | [phone] | | | | | [phone] | | | +--------+---------+ + + + Social History [...] documented as of this encounter Progress Notes Royce Alejo MD - 02/06/2019 0830 PDTFormatting of this note might be different fro m the original. Video Capsule Endoscopy Report JEANNA SALVADOR 1940 Date of Procedure: 02/06/2019 Referring Provider: Sang Chong MD Interpreting Physician: Royce Alejo MD Reason for Referral Melena, anemia Procedure Information A time out was completed. Having explained to the patient the benefits and risks, an inform ed consent was signed. The patient was kept on clear liquids the afternoon prior. Partial bowel prep was taken the afternoon prior and patient was nothing by mouth 10 hours prior. T he morning of the exam, the patient was fitted with the sensor array and swallowed the capsu le without difficulty. Patient returned towards the end of the day when it appeared the cap isiah passed into the colon. First gastric image:00:01:11 First duodenal image: 00:06:56 First cecal image: 04:21:16 Total small bowel transit time: 4h 14m Findings Stomach: Normal stomach on limited examination Duodenum: the distal cusp of the pylorus is erythematous but no evidence of bleeding. Jejunum: Normal examined jejunum Ileum: There is erythema in the terminal ileum, and one bleeding erosion was seen, at 04:19 :49. This is located just proximal to the cecum. Summary This is an abnormal study. 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 Recommendations -further evaluation with colonoscopy is recommended on an urgent basis -GI clinical staff will arrange with the patient -hold warfarin for 5 days prior to colonoscopy. ELICarirma, Charlene Noe RN - 02/06/2019 0830 PDTPatient arrived at 0827 this morning for small bowel capsule endos copy (Pillcam); she has been NPO 10 hrs and had completed less than partial bowel prep night before; explained risk and benefits to patient, due to patient being non ambulatory provide d 10 mg Reglan, and informed consent was signed at 0847 ; sensor array placed, capsule swall owed w/o difficulty at 0910; reviewed instructions with patient for clear liquids at 1110 fo llowed by light lunch at 1:10pm and to report back to office at 3:30pm unless signs of reach ing colon sooner; provided office number; patient verbalized understanding.Electronically si gned by Charlene Fernández RN at 02/11/2019 17:06 PDTdocumented in this encounter Plan of Treatment Not on filedocumented as of this encounter Visit Diagnoses + + | Diagnosis | + + | Melena - Primary Blood in stool | + + | Anemia, unspecified type | + + documented in this encounter"
--- OUTSIDE RECORDS SUMMARY | ~2019-05-07 | XMS | Encounter Summary ---
Demographics + + + | Address | [address] | | | [place] [address] | + + + | Home Phone | | + + + | Preferred Language | Unknown | + + + | Marital Status | | + + + | Christian Affiliation | Unknown | + + + | Race | White | + + + | Ethnic Group | Not or | + + + Author + + + | Author | [facility] | + + + | Organization | [facility] | + + + | Address | Unknown | + + + | Phone | Unavailable | + + + Support + + +---------+ + | Name | Relationship | Address | Phone | + + +---------+ + | Nabil Salvador | ECON | Unknown | | + + +---------+ + Care Team Providers + +------+ + | Care Plc Controls Engineer Name | Role | Phone | + +------+ + | Sang Chong MD | PCP | | + +------+ + Encounter Details +--------+ + + + + | Date | Type | Department | Care Team | Description | +--------+ + + + + | 04/20/ | Abstract | [facility] | Gautam Walker MD | | | 2018 | | [place] | [address] | | | | | Oculoplastics at | [place], [place] | | | | | Kamila Finley [facility] | [address] | | | | | [address] [facility] | [phone] | | | | | Mailcode: [address] | | | | | | [place], [place] | | | | | | [address] | | | | | | [phone] | | | +--------+ + + + [...]
--- OUTSIDE RECORDS SUMMARY | ~2019-05-07 | XMS | Encounter Summary ---
Demographics + + + | Address | [address] | | | [place] [address] | + + + | Home Phone | | + + + | Preferred Language | Unknown | + + + | Marital Status | | + + + | Congregational Affiliation | 1027 | + + + | Race | Unknown | + + + | Ethnic Group | Unknown | + + + Author + + + | Author | [facility] | | | and [place] | + + + | Organization | [facility] | | | and [place] [...] [place] | | | | | [address] | | + + + + + | Dakota Lamas | ECON | Unknown | | + + + + + | Hu Rosenberg | ECON | [place] | | + + + + + Care Team Providers + +------+ + | Care Documentation Writer Name | Role | Phone | + [...] | | | inal | [address] | [place], [place] | | | | | hemorrhage, | [place] | [address] | | | | | unspecified | [address]andal [address] | Phone: | | | | | gastrointest | [place], [place] | [phone] | | | | | inal | [address] | Fax: | | | | | hemorrhage | Phone: | [phone] | | | | | type | [phone] | | | | | | Procedures | Fax: | | | | | | IR Placement | [phone] | | | | | | IVC [...] + + | 04/10/ | Telephone | [facility] | Shimon Mccartney, | Pre-Procedure | | 2018 | | INTERVENTIONAL | RN | | | | | RADIOLOGY [address] | | | | | | [address] | | | | | | [place] | | | | | | [address] | | | | | | [phone] | | | +--------+ + + + [...] as of this encounter Plan of Treatment + +--------+ + + | Name | [...] + + documented as of this encounter Results IR Placement IVC Filter [...] under | | | ultrasound guidance. Using Mackeldinger technique, there was | | | placement of a 4 Anguillan BerensteinCatheter in the left external iliac | [...] + + | Librado, Rad Results In 04/15/2019 1035 PDT | | 1. ULTRASOUND [...] technique, there was placement of a 4 Anguillan Berenstein | | Catheter in the left [...] + + | Performing | Address | City[facility] | Phone Number | | Organization | | | | + +---------+ + + | [facility] | | | | + +---------+ + + documented in this encounter Visit Diagnoses + + | Diagnosis | + + | Gastrointestinal hemorrhage, unspecified gastrointestinal hemorrhage type - Primary | + + documented in this encounter"
--- OUTSIDE RECORDS SUMMARY | ~2019-05-07 | XMS | Clinical Summary ---
Demographics + + + | Address | [address] | | | [place] [address] | + + + | Home Phone | | + + + | Preferred Language | Unknown | + + + | Marital Status | | + + + | Anabaptist Affiliation | 1027 | + + + | Race | Unknown | + + + | Ethnic Group | Unknown | + + + Author + + + | Author | [facility] | | | and [place] | + + + | Organization | [facility] | | | and [place] [...] [place] | | | | | [address] | | + + + + + | Dakota Lamas | ECON | Unknown | | + + + + + | Hu Rosenberg | ECON | [place] | | + + + + + Care Team Providers + +------+ + | Care Production Control Planner Name | Role | Phone | + +------+ + | Sang Chong | PCP | | | MD | | | + +------+ + Allergies No Known Allergies Medications + + + +---------+------+------+-------+ | Medication | Sig | Dispensed | Refills | Star | End | Statu | | | | | | t | Date | s | | | | | | Date | | | + + + +---------+------+------+-------+ | Elastic Bandages & | 2 Units by Does not | 2 each | 2 | 02/2 | | Activ | | Supports (MEDICAL | apply route Daily. | | | 03/05 | | e | | COMPRESSION | thigh high or | | | 13 | | | | STOCKINGS) MISC | pantyhose style | | | | | | | | compression | | | | | | | | stocking, 20-30 mm | | | | | | | | of mercury | | | | | | | | compression. | | | | | | + + + +---------+------+------+-------+ | acetaminophen | Take 2 tablets by | 120 | 0 | 06/2 | | Activ | | (TYLENOL) 325 mg | mouth every 4 hours | tablet | | 6/20 | | e | | tablet | as needed for Pain. | | | 19 | | | + + + +---------+------+------+-------+ | pantoprazole | Take 1 tablet by | 30 | 0 | 06/2 | | Activ | | (PROTONIX) 40 mg | mouth every morning | tablet | | 7/20 | | e | | tablet | (before breakfast). | | | 19 | | | + + + +---------+------+------+-------+ | | Take 1 tablet by | | 0 | | | Activ | | C-Nbqyddgiqlzy-W7-B1 | mouth Daily. | | | | | e | | 2 (FOLTANX) 3-35-2 | | | | | | | | MG TABS | | | | | | | + + + +---------+------+------+-------+ | POTASSIUM PO | potassium | | 0 | | | Activ | | | | | | | | e | + + + +---------+------+------+-------+ | Docusate Calcium | Stool Softener | | 0 | | | Activ | | (STOOL SOFTENER PO) | | | | | | e | + + + +---------+------+------+-------+ | Cholecalciferol | Vitamin D3 | | 0 | | | Activ | | (VITAMIN D3 PO) | | | | | | e | + + + +---------+------+------+-------+ | furosemide (LASIX) | Take 1 tablet by | | 0 | | | Activ | | 80 mg tablet | mouth Daily. | | | | | e | + + + +---------+------+------+-------+ | | Place 1 drop into | | 0 | 10/1 | | Activ | | xdijktag-qwdjzpokc-x | the left eye 3 times | | | 6/20 | | e | | examethasone | daily. | | | 18 | | | | (MAXITROL) 0.1 % | | | | | | | | ophthalmic | | | | | | | | suspension | | | | | | | + + + +---------+------+------+-------+ | warfarin | Take 1 tablet by | | 0 | | | Activ | | (COUMADIN) 4 MG | mouth Daily. | | | | | e | | tablet | | | | | | | + + + +---------+------+------+-------+ | phytonadione | Inject 10 mg under | | 0 | | | Activ | | (AQUA-MEPHYTON) 10 | the skin once. | | | | | e | | MG/ML injection | | | | | | | + + + +---------+------+------+-------+ | ondansetron | Inject 4 mg into the | | 0 | | | Activ | | (ZOFRAN) 2 mg/mL | vein every 6 hours | | | | | e | | SOLN | as needed. | | | | | | + + + +---------+------+------+-------+ | HYDROmorphone | Inject 0.4 mg into | | 0 | | | Activ | | (DILAUDID) injection | the vein every hour | | | | | e | | | as needed. | | | | | | + + + +---------+------+------+-------+ | ondansetron | As needed for | 2 | 0 | 07/3 | | Activ | | (ZOFRAN) 4 mg tablet | nausea; stop prep; | tablet | | 0/20 | | e | | | take 1 tablet; wait | | | 19 | | | | | 30 min then resume | | | | | | | | prep; repeat 1x prn | | | | | | + + + +---------+------+------+-------+ | sodium | Take 177 mLs by | 2 | 0 | 07/3 | | Activ | | sulfate-potassium | mouth See Admin | Bottle | | 0/20 | | e | | sulfate-magnesium | Instructions. Take | | | 19 | | | | sulfate (SUPREP | one kit, first dose | | | | | | | BOWEL PREP KIT) oral | at 4pm, second dose | | | | | | | solution | at 8pm day before | | | | | | | | procedure | | | | | | + + + +---------+------+------+-------+ | warfarin | Take 1 mg by mouth | | 0 | 09/ | | Activ | | (COUMADIN) 1 mg | Daily. | | | 10/03 | | e | | tablet | | | | 19 | | | + + + +---------+------+------+-------+ Active Problems +---------+ + | Problem | Noted Date | +---------+ + | Gaviotaena | 02/14/2019 | +---------+ + + + | Overview: Added automatically from request for surgery | | [id number] | + + + + + | custodial (current) use of anticoagulants | 02/14/2019 | + + + + + | Overview: Added automatically from request for surgery | | [id number] | + + + + + | Atrial fibrillation, unspecified type | 02/14/2019 | + + + + + | Overview: Added automatically from request for surgery | | [id number] | + + + + + | Anemia, unspecified type | 02/14/2019 | + + + + + | Overview: Added automatically from request for surgery | | [id number] | + + + + + | Acute blood loss anemia | 01/09/2019 | + + + | Periprosthetic supracondylar fracture of femur | 01/09/2019 | + + + | GI bleeding | 01/01/2019 | + + + | Dyspeptic diarrhea | 08/01/2018 | + + + | History of recurrent deep vein thrombosis | 07/31/2018 | + + + | Chronic rhinitis | 05/01/2018 | + + + | Deviated septum | 05/01/2018 | + + + | 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 | 05/01/2018 | + + + | 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 | 05/01/2018 | + + + Encounters +--------+ + + + + | Date | Type | Specialty | Care Team | Description | +--------+ + + + + | 04/16/ | Telephone | Radiology | Shimon Mccartney, | Follow-up(Procedure) | | 2018 | | | RN | | +--------+ + + + + | 04/15/ | Hospital | Radiology | Shimon Alston | Gastrointestinal | | 2018 | Encounter | | MD Erick | hemorrhage, | | | | | | unspecified | | | | | | gastrointestinal | | | | | | hemorrhage type | +--------+ + + + + | 04/12/ | Telephone | Radiology | Shimon Alston | | | 2018 | | | MD Erick | | +--------+ + + + + | 04/10/ | Telephone | Radiology | Shimon Mccartney, | Pre-Procedure | | 2018 | | | RN | | +--------+ + + + + | 04/10/ | Telephone | Radiology | Shimon Mccartney, | Pre-Procedure | | 2018 | | | RN | | +--------+ + + + + | 04/09/ | Telephone | Orthopedic Surgery | Deon Barrios, | Appointment (Follow | 2018 | | | | Up) | +--------+ + + + + | 04/09/ | Telephone | Gastroenterology | Royce Alejo | Other | | 2018 | | | MD Anton | | +--------+ + + + + | 03/14/ | Hospital | Radiology | Deon Barrios, | Periprosthetic | | 2018 | Encounter | | MD | supracondylar | | | | | | fracture of femur, | | | | | | initial encounter; | | | | | | S/P ORIF (open | | | | | | reduction internal | | | | | | fixation) fracture | +--------+ + + + + | 03/14/ | Office | Orthopedic Surgery | Deon Barrios, | Periprosthetic | | 2018 | Visit | | | supracondylar | | | | | | fracture of femur, | | | | | | initial encounter | | | | | | (Primary Dx); S/P | | | | | | ORIF (open reduction | | | | | | internal fixation) | | | | | | fracture | +--------+ + + + + | 02/28/ | Telephone | Gastroenterology | Royce Alejo | Other | | 2018 | | | MD Anton | | +--------+ + + + + | 02/21/ | Telephone | | Royce Alejo | Appointment | | 2019 | | | MD Anton | (colonoscopy) | +--------+ + + + + | 02/20/ | Anesthesia | | Oz Zheng | | | 2018 | Event | | DO [place] | | +--------+ + + + + | 02/14/ | Hospital | Radiology | Deon Barrios, | Periprosthetic | | 2018 | Encounter | | | supracondylar | | | | | | fracture of femur, | | | | | | initial encounter; | | | | | | S/P ORIF (open | | | | | | reduction internal | | | | | | fixation) fracture | +--------+ + + + + | 02/14/ | Office | Orthopedic Surgery | Deon Barrios, | Periprosthetic | | 2018 | Visit | | | supracondylar | | | | | | fracture of femur, | | | | | | initial encounter | | | | | | (Primary Dx); S/P | | | | | | ORIF (open reduction | | | | | | internal fixation) | | | | | | fracture | +--------+ + + + + | 02/12/ | Telephone | Gastroenterology | Royce Alejo | Procedure | | 2018 | | | MD Anton | (colonoscopy) | +--------+ + + + + | 02/06/ | Office | Gastroenterology | Royce Alejo | Melanie (Primary Dx); | | 2018 | Visit | | MD Anton | Anemia, unspecified | | | | | | type | +--------+ + + + + from Last 3 Months Family History + + +------+ + | Medical History | Relation | Name | Comments | + + +------+ + | Asthma | Father | | | + + +------+ + | Heart disease | Mother | | | + + +------+ + + +------+ + + | Relation | Name | Status | Comments | + +------+ + + | Father | | | asthma | | | | (Age | | | | | 71) | | + +------+ + + | Mother | | | ASHD heart disease for cardiomyopathy | | | | (Age | | | | | 71) | | + +------+ + + Social History + +-------+ +--------+------+ [...] | + + Last Filed Vital Signs + + + + | Vital Sign | Reading | Time Taken | + + + + | Blood Pressure | 132/59 | 04/15/2019999 PDT | + + + + | Pulse | 70 | 04/15/2019 1000 PDT | + + + + | Temperature | 36.8 C (98.3 F) | 04/15/2019742 PDT | + + + + | Respiratory Rate | 20 | 04/15/2019924 PDT | + + + + | Oxygen Saturation | 92% | 04/15/2019999 PDT | + + + + | [...] | Body Mass Index | 30.35 | 04/15/2019742 PDT | + + + + Plan of Treatment + + + + + | Health Maintenance | Due Date | Last Done | Comments | + + + + + | Vaccine: | | | | | Dtap/Tdap/Td (1 - | 9 | | | | Tdap) | | | | + + + + + | Vaccine: Zoster (1 | | | | | of 2) | 0 | | | + + + + + | Breast Cancer | | | | | Screening | 5 | | | + + + + + | Adult Annual | | | | | Wellness Visit | 9 | | | + + + + + | Vaccine: | | 05/03/2018 | | | Pneumococcal 65+ | 9 | | | | Low/Medium Risk (2 | | | | | of 2 - PPSV23) | | | | + + + + + | Vaccine: Influenza | Completed | 04/07/2019 | | + + + + + Implants + +-------+------+ +--------+--------+--------+ | Implanted | Type | Area | Manufacture | Device | Shelf | Model | | | | | r | | Expira | / | | | | | | Identi | tion | Serial | | | | | | fier | Date | / Lot | + +-------+------+ +--------+--------+--------+ | Screw Remy 5x36mm - | Screw | | [place] | | | [id number] | | [id number]: Qty: 1 | | | MEDICAL - | | | / / | | on 01/02/2019 by Denis, | | | STRY | | | | | Deon Shah MD | | | | | | | + +-------+------+ +--------+--------+--------+ | Screw Remy 5x60mm - | Screw | | [place] | | | [id number] | | [id number]: Qty: 1 | | | MEDICAL - | | | / / | | on 01/02/2019 by Denis, | | | STRY | | | | | Deon Shah MD | | | | | | | + +-------+------+ +--------+--------+--------+ | Screw Remy 5x80mm - | Screw | | [place] | | | [id number] | | [id number]: Qty: 2 | | | MEDICAL - | | | / / | | on 01/02/2019 by Denis, | | | STRY | | | | | Deon Shah MD | | | | | | | + +-------+------+ +--------+--------+--------+ | Plate Fem Dist Lat 238mm 10 | | | [place] | | | [id number] | | [id number] - [id number]: | | | MEDICAL - | | | / / | | Qty: 1 on 01/02/2019 by | | | STRY | | | | | Deon Barrios MD | | | | | | | + +-------+------+ +--------+--------+--------+ | Screw Remy 5mm 5.0 L34mm - | | | [place] | | | [id number] | | [id number]: Qty: 3 | | | MEDICAL - | | | / / | | on 01/02/2019 by Denis, | | | STRY | | | | | Deon Shah MD | | | | | | | + +-------+------+ +--------+--------+--------+ | Screw Remy 5mm 5.0 L75mm - | | | [place] | | | [id number] | | [id number]: Qty: 2 | | | MEDICAL - | | | / / | | on 01/02/2019 by Denis, | | | NKECHI | | | | | Deon Shah MD | | | | | | | + +-------+------+ +--------+--------+--------+ | Eric Mathews Vena Cava | | | COOK | | 12/06/ | [id number] | | Filter-04/15/2019Implanted: | | | [employer]ICAL INC | | 2021 | / | | Qty: 1 on 04/15/2019 by | | | - DAVID | | | /[id number] | | Shimon Alston MD | | | | | | 529 | + +-------+------+ +--------+--------+--------+ Procedures + +--------+ + + + | [...] RIGHT 1 - 2 | Routin | 03/14/2019 | Periprosthetic | Results for this | | VW | e | 13:22 PDT | supracondylar | procedure are in [...] | | + +--------+ + + + from Last 3 Months Results IR Placement IVC Filter (04/15/2019 9:46 [...] | | | placement of a 4 Georgian BerensteinCatheter in the left external iliac | [...] Signed by: | | | Brant Alston Parrishrobby Date/Time: 04/15/2019 10:32 AM | | |Contrast: [...] technique, there was placement of a 4 Georgian Berenstein | | Catheter in the left [...] [facility] | | | | performed at [facility];[address] | | [address]AT[address] | | | | [address];[place] | | | | | | [address] | | | | + + + + + + + + | Specimen | + + | Blood | + + + + + + + | Performing | Address | City/State/Zipcode | Phone Number | | Organization | | | | + + + + + | [facility] | [address] | [place] [address] | [phone] | + + + + + Ravinder PHILLIP (04/15/2019 8:16 PDT) + + + + + + | Component | Value | Ref Range | Performed | Pathologist | | | | | At | Signature | + + + + + + | INR | 1.0Comment: REFERENCE | | [facility] | | | | RANGE:0.9 - | [...] | | | | | performed at [facility];[address] | | | | | | [address];[place] | | | | | | [address] | | | | + + + + + + + + | Specimen | + + | Blood | + + + + + + + | Performing | Address | City/State/Zipcode | Phone Number | | Organization | | | | + + + + + | [facility] | [address] | [place] [address] | [phone] | + + + + + CBC [...] | | | | | performed at [facility];[address];[place], [place] | | | | | | [address] | | | | | |MICRO | | | | | |NORMAL PLT MORPH | | | | | |Testing performed at [facility];[address] [facility];[place] [address] | | | | | | | | | | + + + + + + + + | Specimen | + + | Blood | + + + + + + + | Performing | Address | City/State/Zipcode | Phone Number | | Organization | | | | + + + + + | [facility] | [address] [facility] | [place] [address] | [phone] | + + + + + XR Knee Right 1 - 2 Vw (03/14/2019 13:22 PDT)Only the most recent of 2 results within the period is included. + + | Specimen | + + | | + + + + + | Narrative | Performed At | + + + | XR KNEE RIGHT 1 - 2 VW 03/14/2019 1:22 PM HISTORY: S/P ORIF Right | [facility] | | Displaced Femur Fracture DOS:01/02/19. COMPARISON: 02/14/2019. | | | FINDINGS: Lateral plate and screw hardware are seen from the mid to | | | distal femur bridging a fracture of the distal femur in anatomic | | | alignment. There is minimal callus formation at this time. Hardware | | | for knee arthroplasty is observed. Bone mineralization is normal. | | | Soft tissues are unremarkable. IMPRESSION - Status post ORIF of | | | distal femoral fracture with minimal healing. Dictated and Signed | | | by: Derek Montes MD Electronically signed: 03/14/2019 4:02 PM | | + + + + + | Procedure Note | + + | Librado, Rad Results In - 03/14/2019 1606 PDT XR KNEE RIGHT 1 - 2 VW 03/14/2019 1:22 PM | | | | HISTORY: S/P ORIF Right Displaced Femur Fracture DOS:01/02/19. | | | | COMPARISON: 02/14/2019. | | | | FINDINGS: | | Lateral plate and screw hardware are seen from the mid to distal femur bridging | | a fracture of the distal femur in anatomic alignment. There is minimal callus | | formation at this time. Hardware for knee arthroplasty is observed. Bone | | mineralization is normal. Soft tissues are unremarkable. | | | | IMPRESSION - | | Status post ORIF of distal femoral fracture with minimal healing. | | | | Dictated and Signed by: Derek Montes MD | | Electronically signed: 03/14/2019 4:02 PM | + + + +---------+ + + | Performing | Address | City/State/Zipcode | Phone Number | | Organization | | | | + +---------+ + + | [facility] | | | | + +---------+ + + from Last 3 Months Insurance + +--------+ +--------+ +---------+--------+ | Payer | Benefi | Subscriber | Effect | Phone | Address | Type | | | t Plan | ID | weston | | | | | | / | | Dates | | | | | | Group | | | | | | + +--------+ +--------+ +---------+--------+ | MEDICARE | MEDICA | [id number] | 11/15/19 | [phone] | | Medica | | | RE | | 05-Pre | 5 | | re | | | PART A | | sent | | | | | | AND B | | | | | | + +--------+ +--------+ +---------+--------+ | [employer] | MALIN | [id number] | | [phone] | | Indemn | | | OF | | 006-Pr | 0 | | ity | | | [place] | | esent | | | | | | MDCR | | | | | | | | SUPPL | | | | | | + +--------+ +--------+ +---------+--------+ | MEDICARE | MEDICA | [id number] | 07/17/19 | [phone] | | Medica | | | RE | | 06-Pre | 5 | | re | | | PART A | | sent | | | | | | AND B | | | | | | + +--------+ +--------+ +---------+--------+ + +--------+ +--------+ + + | Guarantor Name | Accoun | Relation to | Date | Phone | Billing Address | | | t Type | Patient | of | | | | | | | | | | + +--------+ +--------+ + + | Jeanna Salvador | Person | Self [birth year] | [address] | | | al/Fam | | 1941 | [phone] | [place], [place] | | | [place] | | | 4 (Home) | [address] | + +--------+ +--------+ + + | Jenana Salvador | Person | Self [birth year] | [address] | | | al/Fam | | 1941 | [phone] | [place], [place] | | | [place] | | | 4 (Home) | [address] | + +--------+ +--------+ + + Advance Directives Patient has advance care planning documents, and code status on file. For more information, please contact:[facility] [address] + + + + + | Code Status | Date | Date | Comments | | | Activated | Inactivated | | + + + + + | Full Code | 01/02/2019 | 01/09/2019 | | | | 9:56 | 16:01 | | + + + + + + + + +---+ | | | | | + + + +---+ | Full Code | 01/01/2019 | 01/02/2019 | | | by default | 10:29 | 9:56 | | | - TBD | | | | + + + +---+
--- OUTSIDE RECORDS SUMMARY | ~2019-05-07 | XMS | Encounter Summary ---
Demographics + + + | Address | [address] | | | [place] [address] | + + + | Home Phone | | + + + | Preferred Language | Unknown | + + + | Marital Status | | + + + | Baptist Affiliation | 1027 | + + + | Race | Unknown | + + + | Ethnic Group | Unknown | + + + Author + + + | Author | [facility] | | | and [place] | + + + | Organization | [facility] | | | and [place] [...] [place] | | | | | [address] | | + + + + + | Dakota Lamas | ECON | Unknown | | + + + + + | Hu Rosenberg | ECON | [place] | | + + + + + Care Team Providers + +------+ + | Care Preschool Assistant Principal Name | Role | Phone | + [...] (colonoscopy) | | | | [address] | [address] | | | | | [place] | [place] [address] | | | | | [address] | [phone] | | | | | [phone] | | | +--------+ + + + [...]
--- OUTSIDE RECORDS SUMMARY | ~2019-05-07 | XMS | Encounter Summary ---
Demographics + + + | Address | [address] | | | [place] [address] | + + + | Home Phone | | + + + | Preferred Language | Unknown | + + + | Marital Status | | + + + | Anglican Affiliation | 1027 | + + + | Race | Unknown | + + + | Ethnic Group | Unknown | + + + Author + + + | Author | [facility] | | | and [place] | + + + | Organization | [facility] | | | and [place] [...] [place] | | | | | [address] | | + + + + + | Dakota Lamas | ECON | Unknown | | + + + + + | Hu Rosenberg | ECON | [place] | | + + + + + Care Team Providers + +------+ + | Care Deputy Commissioner Name | Role | Phone | + [...] + + | 02/28/ | Telephone | [facility] | Royce Alejo | Other | | 2019 | | GASTROENTEROLOGY | MD Anton [address] | | | | | [address] | [address] [place] | | | | | [address] [place] | [place] [address] | | | | | [address] | [phone] | | | | | [phone] | | | +--------+ + + + [...]
--- OUTSIDE RECORDS SUMMARY | ~2019-05-07 | XMS | Encounter Summary ---
Demographics + + + | Address | [address] | | | [place] [address] | + + + | Home Phone | | + + + | Preferred Language | Unknown | + + + | Marital Status | | + + + | Christian Affiliation | 1027 | + + + | Race | Unknown | + + + | Ethnic Group | Unknown | + + + Author + + + | Author | [facility] | | | and [place] | + + + | Organization | [facility] | | | and [place] [...] [place] | | | | | [address] | | + + + + + | Dakota Lamas | ECON | Unknown | | + + + + + | Hu Rosenberg | ECON | [place] | | + + + + + Care Team Providers + +------+ + | Care Normalizer Name | Role | Phone | + [...] + + | 04/10/ | Telephone | [facility] | Shimon Mccartney, | Pre-Procedure | | 2018 | | INTERVENTIONAL | RN | | | | | RADIOLOGY [address] | | | | | | [address] | | | | | | [place] | | | | | | [address] | | | | | | [phone] | | | +--------+ + + + [...]
--- OUTSIDE RECORDS SUMMARY | ~2019-05-07 | XMS | Encounter Summary ---
Demographics + + + | Address | [address] | | | [place] [address] | + + + | Home Phone | | + + + | Preferred Language | Unknown | + + + | Marital Status | | + + + | Restorationist Affiliation | Unknown | + + + | Race | White | + + + | Ethnic Group | Not or | + + + Author + + + | Author | [facility] | + + + | Organization | [facility] | + + + | Address | Unknown | + + + | Phone | Unavailable | + + + Support + + +---------+ + | Name | Relationship | Address | Phone | + + +---------+ + | Nabil Salvador | ECON | Unknown | | + + +---------+ + Care Team Providers + +------+ + | Care Saw Cleaner Name | Role | Phone | + [...] [address] | | | | | | [place], | | | | | | [place] [address] | | | +--------+--------+ + + + [...]
--- OUTSIDE RECORDS SUMMARY | ~2019-05-07 | XMS | Encounter Summary ---
Demographics + + + | Address | [address] | | | [place] [address] | + + + | Home Phone | | + + + | Preferred Language | Unknown | + + + | Marital Status | | + + + | Anglican Affiliation | 1027 | + + + | Race | Unknown | + + + | Ethnic Group | Unknown | + + + Author + + + | Author | [facility] | | | and [place] | + + + | Organization | [facility] | | | and [place] | [...] [place] | | | | | [address] | | + + + + + | Dakota Lamas | ECON | Unknown | | + + + + + | Hu Rosenberg | ECON | [place] | | + + + + + Care Team Providers + +------+ + | Care Electronic Lab Technician Name | Role | Phone | + +------+ + | Sang Chong | PCP | | | MD | | | + +------+ + Encounter Details +--------+ + + + + | Date | Type | Department | Care Team | Description | +--------+ + + + + | 02/21/ | Anesthesia | [facility] | Oz Zheng | | | 2019 | Event | [facility] | DO [place] [address] | | | | | [address] | [address] | | | | | [place] | [place] [address] | | | | | [address] | [phone] | | | | | [phone] | | | +--------+ + + + [...] blood administrations on file. | + + +--------+ + +---------+ | Type | Details | Placement | Removal | +--------+ + +---------+ | Periph | 04/15/19; yes; Right; Neck | 04/15/19 0000 by | | | eral | (Jugular) | Hliary Palma RN | | | IV | | | | | Line - | | | | | | | | | | Double | | | | | Lumen | | | | +--------+ + +---------+ documented in this encounter Social History + [...]
--- OUTSIDE RECORDS SUMMARY | ~2019-05-07 | XMS | Encounter Summary ---
Demographics + + + | Address | [address] | | | [place] [address] | + + + | Home Phone | | + + + | Preferred Language | Unknown | + + + | Marital Status | | + + + | Methodist Affiliation | 1027 | + + + | Race | Unknown | + + + | Ethnic Group | Unknown | + + + Author + + + | Author | [facility] | | | and [place] | + + + | Organization | [facility] | | | and [...] [place] | | | | | [address] | | + + + + + | Dakota Lamas | ECON | Unknown | | + + + + + | Hu Rosenberg | ECON | [place] | | + + + + + Care Team Providers + +------+ + | Care Transfer Worker Name | Role | Phone | + [...] | [address] | [place], [place] [address] | | | | | [address] | [phone] | | | | | [phone] | | | +--------+ + + + [...] Blood in stool | + + | senior living (current) use of anticoagulants Long-term (current) use of anticoagulants | + + | Atrial fibrillation, unspecified type (HCC) | + + | Anemia, unspecified type | + + documented in this encounter"
--- OUTSIDE RECORDS SUMMARY | ~2019-05-07 | XMS | Clinical Summary ---
Demographics + + + | Address | [address] | | | [place] [address] | + + + | Home Phone | | + + + | Preferred Language | Unknown | + + + | Marital Status | | + + + | Religion Affiliation | Unknown | + + + | Race | White | + + + | Ethnic Group | Not or | + + + Author + + + | Author | [facility] | + + + | Organization | [facility] | + + + | Address | Unknown | + + + | Phone | Unavailable | + + + Support + + +---------+ + | Name | Relationship | Address | Phone | + + +---------+ + | Nabil Salvador | ECON | Unknown | | + + +---------+ + Care Team Providers + +------+ + | Care Database Coordinator Name | Role | Phone | + +------+ + | Sang Chong MD | PCP | | + +------+ + Source Comments RONEL is fully live on both [facility] and [facility] Allergies No Known Allergies Medications + [...] | 10/1 | | Activ | | [id number] | the left eye three | | [...] | B | | sent | | [place], [place] | | | | | | | | [address] | | + +--------+ +--------+ + +--------+ [...] | | al/Fam | | 1941 | [phone] | [place] | | | [place] | | | 4 (Home) | [address] | + +--------+ +--------+ + +"
--- OUTSIDE RECORDS SUMMARY | ~2019-05-07 | XMS | Encounter Summary ---
Demographics + + + | Address | [address] | | | [place] [address] | + + + | Home Phone | | + + + | Preferred Language | Unknown | + + + | Marital Status | | + + + | Congregation Affiliation | Unknown | + + + | Race | White | + + + | Ethnic Group | Not or | + + + Author + + + | Author | [facility] | + + + | Organization | [facility] | + + + | Address | Unknown | + + + | Phone | Unavailable | + + + Support + + +---------+ + | Name | Relationship | Address | Phone | + + +---------+ + | Nabil Salvador | ECON | Unknown | | + + +---------+ + Care Team Providers + +------+ + | Care White Shoe Ragger Name | Role | Phone | + +------+ + | Sang Chong MD | PCP | | + +------+ + Encounter Details +--------+ + + + + | Date | Type | Department | Care Team | Description | +--------+ + + + + | 05/11/ | Telephone | [facility] | Gautam Walker MD | | | 2018 | | [place] | [address] | | | | | Oculoplastics at | vd [place], [place] | | | | | Kamila Finley [facility] | [address] | | | | | [address] [facility] | [phone] | | | | | Mailcode: AMISH | | | | | | [place], [place] | | | | | | [address] | | | | | | [phone] | | | +--------+ + + + [...]
--- OUTSIDE RECORDS SUMMARY | ~2019-05-07 | XMS | Encounter Summary ---
Demographics + + + | Address | [address] | | | [place] [address] | + + + | Home Phone | | + + + | Preferred Language | Unknown | + + + | Marital Status | | + + + | Restorationist Affiliation | 1027 | + + + | Race | Unknown | + + + | Ethnic Group | Unknown | + + + Author + + + | Author | [facility] | | | and [place] | + + + | Organization | [facility] | | [...] [place] | | | | | [address] | | + + + + + | Dakota Lamas | ECON | Unknown | | + + + + + | Hu Rosenberg | ECON | [place] | | + + + + + Care Team Providers + +------+ + | Care Cranberry Sorter Name | Role | Phone | + +------+ + | Sang Chong | PCP | | | MD | | | + +------+ + Encounter Details +--------+ + + + + | Date | Type | Department | Care Team | Description | +--------+ + + + + | 03/14/ | Hospital | [facility] | Deon Barrios, | Periprosthetic | | 2019 | Encounter | MED CTR DES XRAY | [address] [facility] | supracondylar | | | | [address] | [place] | fracture of femur, | | | | [place], [place] | [address] | initial encounter; | | | | [address] | | S/P ORIF (open | | | | [phone] | | reduction internal | | | [...] | | 0 | | | | [id number] | mouth Daily. | | | | | | 2 (FOLTANX) 3-35-2 | | | | | | | MG TABS | | | | | | + + + +---------+ + + | | Place 1 drop into | | 0 | 05/01/20 | | | [id number] | the left eye 3 times | [...]
--- OUTSIDE RECORDS SUMMARY | ~2019-05-07 | XMS | Encounter Summary ---
Demographics + + + | Address | [address] | | | [place] [address] | + + + | Home Phone [...] | [facility] | | | and [place] | + + + | Organization | [facility] | | | and [...] [place] | | | | | [address] | | + + + + + | Daokta Lamas | ECON | Unknown | | + + + + + | Hu Rosenberg | ECON | [place] | | + + + + + Care Team Providers + +------+ + | Care Helmet Hat Puncher Name | Role | Phone | + +------+ + | Sang Chong | PCP | | | MD | | | + +------+ + Encounter Details +--------+---------+ + + + | Date | Type | Department | Care Team | Description | +--------+---------+ + + + | 03/14/ | Office | [facility] | Deon Barrios, | Periprosthetic | | 2019 | Visit | ORTHOPEDIC SURGERY | [address] | supracondylar | | | | [address] [facility] | [place] | fracture of femur, | | | | [place] | [address] | initial encounter | | | | [address] | | (Primary Dx); S/P | | | | [phone] | | ORIF (open reduction | | [...] Not on filedocumented as of this encounter Results XR Knee [...]
--- OUTSIDE RECORDS SUMMARY | ~2019-05-07 | XMS | Encounter Summary ---
Demographics + + + | Address | [address] | | | [place] [address] | + + + | Home Phone | | + + + | Preferred Language | Unknown | + + + | Marital Status | | + + + | Orthodox Affiliation | 1027 | + + + | Race | Unknown | + + + | Ethnic Group | Unknown | + + + Author + + + | Author | [facility] | | | and [place] | + + + | Organization | [facility] | | | and [place] [...] [place] | | | | | [address] | | + + + + + | Dakota Lamas | ECON | Unknown | | + + + + + | Hu Rosenberg | ECON | [place] | | + + + + + Care Team Providers + +------+ + | Care Air Quality Manager Name | Role | Phone | + +------+ + | Sang Chong | PCP | | | MD | | | + +------+ + Encounter Details +--------+ + + + + | Date | Type | Department | Care Team | Description | +--------+ + + + + | 04/12/ | Telephone | [facility] | Shimon Alston | | | 2019 | | CENTER INTRA OP | [address] | | | | | [address] | [place] | | | | | [place], [place] | [place] [address] | | | | | [address] | [phone] | | | | | [phone] | | | +--------+ + + + [...]
--- OUTSIDE RECORDS SUMMARY | ~2019-05-07 | XMS | Encounter Summary ---
Demographics + + + | Address | [address] | | | [place] [address] | + + + | Home Phone | | + + + | Preferred Language | Unknown | + + + | Marital Status | | + + + | Catholic Affiliation | 1027 | + + + | Race | Unknown | + + + | Ethnic Group | Unknown | + + + Author + + + | Author | [facility] | | | and [place] | + + + | Organization | [facility] | | | and [place] | [...] [place] | | | | | [address] | | + + + + + | Dakota Lamas | ECON | Unknown | | + + + + + | Hu Rosenberg | ECON | [place] | | + + + + + Care Team Providers + +------+ + | Care Oil Heaterman Name | Role | Phone | + +------+ + | Sang Chong | PCP | | | MD | | | + +------+ + Encounter Details +--------+---------+ + + + | Date | Type | Department | Care Team | Description | +--------+---------+ + + + | 02/14/ | Office | [facility] | Deon Barrios, | Periprosthetic | | 2019 | Visit | ORTHOPEDIC SURGERY | [address] | supracondylar | | | | [address] [facility] | [place] | fracture of femur, | | | | [place] | [address] | initial encounter | | | | [address] | | (Primary Dx); S/P | | | | [phone] | | ORIF (open reduction | | [...]
[2019-05-07] MEDS ORDERED: OXYCODONE HCL5 MG PO (16:07)
--- NOTE | 2019-05-08 10:08 | NUR ---
PT AMDIT PROCESS CHANGED AND THEREFORE ALL THE AM CHARTING IS IN HER SWING BED ACCOUNT. SEE VS IN PAPER CHART AND ASSESSMENT. FAMILY HAS BEEN IN THIS AM AND TALKING WITH PT AND DR REES.
--- NOTE | 2019-05-08 10:20 | NUR ---
REPORT CALLED TO ALYSIA LOPEZ ON MS AND ALL QUESTIONS ANSWERED. PT WILL GO TO ROOM 110. ALL PERSONAL BELONGINGS SENT WITH PT ALSO THIS AM.
--- NOTE | 2019-05-08 10:37 | NUR ---
1030: PT ARRIVED VIA HER BED TRANSFER FROM CCU. PT ORIENTED TO HER ROOM AND DENIES ANY PAIN AT THIS TIME. MID ABD DRESSING IS CDI WITH A ELSIE DRAIN IN PLACE. PEG TUBE HOOKED TO DRAINAGE BAG. VSS. LEFT BUTTOCK STAGE 2 SMALL DECUB X2. THE PT DECLINED A DRESSING SHE STATES IT WILL NOT STAY. PT MOVED OFF HER DECUBS AT THIS TIME. TPN CONTINUES RUNNING AT THIS TIME.
--- NOTE | 2019-05-08 13:08 | NUR ---
PT ALERT, ORIENTED AND RESPONSIVE, EVEN JOKING SOME. SON IN RM, HE SEEMS RELIEVED SURGERY IS OVER. PT TO BE TRANSFERRED TO M/S LATER THIS MORNING GAVE BLESSING, WILL FOLLOW NEEDED
--- NOTE | 2019-05-08 14:06 | NUR ---
PATIENT RESTING IN BED. FAMILY AND RN IN ROOM. VITAL SIGNS AND I&O DONE. CALL LIGHT WITHIN REACH. NO OTHER NEEDS AT THIS TIME
--- NOTE | 2019-05-08 14:23 | NUR ---
Pt resting in her bed visiting with her family. She denies any pain while at rest and declines the need of any pain medication. Abd dressings remain cdi. VSS.
--- NOTE | 2019-05-08 15:00 | NUR ---
PT CALL LIGHT ON. PUMP ALARMING, ABX INFUSION COMPLETE. CENTRAL LINE WHITE LUMEN ASSESSED, WNL, BRISK BLOOD RETURN NOTED. WHITE LUMEN HEPARIN LOCKED PER PROTOCOL. NO ADDITIONAL REQUESTS OR COMPLAINTS AT THIS TIME. PT WATCHING TV. SON AT BEDSIDE. CALL LIGHT WITHIN REACH.
--- NOTE | 2019-05-08 16:57 | NUR ---
PATIENT RESTING IN BED. VITAL SIGNS AND I&O DONE. GOWN CHANGED. CATHETER CARE DONE. CALL LIGHT WITHIN REACH. NO OTHER NEEDS AT THIS TIME
--- NOTE | 2019-05-08 17:01 | NUR ---
Pt resting in her bed and continues to denie any pain while at rest.
--- NOTE | 2019-05-08 19:03 | NUR ---
RECEIVED REPORT, RN STATES PT IS SLEEPING AT THIS TIME. WILL LET HER REST.
--- NOTE | 2019-05-08 19:40 | NUR ---
PT REQUESTED PAIN MEDICINE, SHE REPORTS IT IS DIFFICULT TO TAKE DEEP BREATHS IN D/T PAIN. SHE HAS 8/10 PAIN, ADMINISTERED TORADOL IV. PT IS VISITING WITH FAMILY AT THIS TIME AND DENIES FURTHER NEEDS. CALL LIGHT IS CLOSE.
--- NOTE | 2019-05-08 21:05 | NUR ---
ADMINISTERED MEDICATIONS AND ASSESSED PT, SHE RATES PAIN AT 0 NOW BUT SAYS IT JUMPS UP TO 5 WHEN COUGHING. BT ARE ABSENT G-TUBE IS DRAINING A VERY SMALL AMOUNT. TPN IS INFUSING AND IV ABX. PT WOULD LIKE SOMETHING TO HELP HER SLEEP. PT DENIES OTHER NEEDS AT THIS TIME. CALL LIGHT IS WITHIN REACH.
--- NOTE | 2019-05-08 22:39 | NUR ---
PT CALLED D/T BEEPING IV. SHE DENIES THE NEED FOR MELATONIN AT THIS TIME. CL HEPLOCKED IN MED/BLOOD PORTS. CALL LIGHT IS CLOSE AND SHE DENIES FURTHER NEEDS. TPN/LIPIDS INFUSING FINE.
--- NOTE | 2019-05-09 02:10 | NUR ---
IN ROOM TO ADMINISTER MEDICATIONS. PT DENIES PAIN AT THIS TIME. SPOKE ABOUT STAYING ON TOP OF PAIN MEDS BUT SHE STATES SHE REALLY DOESN'T NEED ANYTHING FOR PAIN. FRESH ICEWATER AT BEDSIDE AND REPOSITIONED PT. CALL LIGHT IS WITHIN REACH.
--- NOTE | 2019-05-09 03:30 | NUR ---
PT CALLED DUE TO BEEPING IV PUMP. LIPIDS ARE DONE INFUSING. PT DENIES NEEDS AT THIS TIME. CALL LIGHT IS CLOSE.
--- NOTE | 2019-05-09 05:45 | NUR ---
IN ROOM ADMINISTERING MEDICATIONS. PT DENIES PAIN AT THIS TIME. ASKED IF SHE WOULD LIKE TO PREMEDICATE FOR THE DAY SINCE SHE WILL NEED TO GET UP AND MOVE AROUND AND SHE DECLINED. TPN IS INFUSING FINE AND PT DENIES NEEDS AT THIS TIME. CALL LIGHT IS CLOSE.
--- NOTE | 2019-05-09 06:21 | NUR ---
PT IS TOLERATING CLEAR LIQUIDS AND HAS TPN INFUSING THROUGH HER CENTRAL LINE. ELSIE DRAIN PUT OUT 105 THROUGHT THE NIGHT OF SEROSANGUINOUS DRAINAGE. THE G-TUBE BAG HAS A VERY SMALL AMOUNT OF BROWN LIQUID IN IT. MEPILEX AND OPSITE CDI. PT NEED REMINDERS/HELP REPOSITIONING. SHE REQUIRED TORADOL ONCE THROUGH THE NIGHT AND DENIES PAIN. FAMILY WANTS HER COMFORTABLE AND SHE WAS ASKED OFTEN ABOUT PAIN AND MEDICATION. NO SCDS!
--- NOTE | 2019-05-09 07:20 | NUR ---
REPORT RECEIVED. PATIENT SLEEPING IN BED ON RA. ORDERS ACKNOWLEDGED.
--- NOTE | 2019-05-09 09:15 | NUR ---
BLOOD RETURN ASSESSED ON TRIPLE LUMEN IJ, NO BLOOD RETURN NOTED. DR. REES CALLED AND NOTIFIED. HE STATES HE WILL BE UP TO UNIT TO ASSESS CENTRAL LINE. TPN CONTINUES INFUSING AT 83 MLS/HR. AM MEDICATIONS NOT GIVEN. HR OF 112. PATIENT STATES SHE FEELS "TIRED AND SLEEPY TODAY." DR. KAUR CALLED ABOUT IV METOPROLOL. ORDERS TO HOLD MEDICATION UNTIL DR. REES IS CONSULTED. FAMILY IN ROOM. PATIENT DENIES FURTHER NEEDS AT THIS TIME, CALL LIGHT WITHIN REACH.
--- NOTE | 2019-05-09 11:19 | OR ---
[facility] [address], [place] [address] Signed DATE OF OPERATION: 05/07/2019 SURGEON: Demetri Rees MD PREOPERATIVE DIAGNOSES: 1. 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 2. Extensive ilio-venous thrombosis, recently discovered factor V Leiden mutation. 3. Metastatic lesion to right lobe of liver and possible omental involvement. 4. Status post vena cava filter. 5. Profound malnutrition. POSTOPERATIVE DIAGNOSES: 1. Nonresectable pelvic mass with retroperitoneal adenopathy. 2. Functionally complete distal small bowel obstruction with dilation and severe inflammation. PROCEDURES PERFORMED: 1. Exploration of abdomen and open decompression of dilated small bowel. 2. Biopsy of retroperitoneal mass. 3. Palliative decompressive ileal right colonic bypass ([id number] ileocolostomy). 4. Explantation of portion of the omentum and attendand prosthetic mesh. ARTIST'S MANAGER: Nurse (Lissette Renee RN) ANESTHESIA: General endotracheal; Nicki Adhikari, EXOTIC DANCER, and postoperative TAP block. DRAIN: 7 mm Syd ( pelvis) INDICATION: This 78-year-old white woman is a patient of Dr. Georges hCong. She presented to the emergency room with inability to eat, weight loss, and profound weakness. She was slightly anemic and a CT scan was obtained, which showed a large pelvic mass on the right side with a hepatic lesion in the right lobe and possible omental involvement. Clinical appearance was that of probable ovarian carcinoma. She had undergone hysterectomy in the 1970s with preservation of ovaries. Electronically Signed By: DEMETRI REES MD 05/09/19 1119 PATIENT NAME: SILAS HAWK OPERATIVE REPORT DATE OF : 38 REPORT #: [id number] PHYSICIAN: DEMETRI REES MD PCP: GEORGES CHONG MD REPORT IS CONFIDENTIAL AND NOT TO BE RELEASED WITHOUT AUTHORIZATION [facility] [address], [place] [address] Signed She is found to have profound nutritional deficiencies as she had really not been able to eat well since August of 2018. She had fallen due to her weakness a number of weeks ago and suffered a suprapatellar right-sided fracture requiring operative management in [place] several weeks ago with subsequent convalescence at a local long-term. She was noted to be significantly anemic prior to her orthopedic intervention and underwent upper endoscopy by Dr. Royce Suh in [place] showing a few small antral ulcers and a PillCam showing possible ulcerative changes of the ileum. A plan for colonoscopy was made to allow for intubation of the ileum; however, she could not tolerate a bowel prep as regard to oral intake and it never occurred. Her presentation in the emergency room on this visit showed the large mass of the pelvis and tumor markers were obtained showing a CA-125 of 425 and a CEA of 40. Thus, the lesion is most consistent with ovarian cancer. The small bowel was not severely dilated. 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 A PEG tube was placed by me during the course of her recent hospitalization to allow for enteral tube feeding. However, she never tolerated the tube feeding well even in small amounts with an elemental formula and has been therefore treated primarily in a swing bed status with TPN infusion to " pre habilitate" her anticipation tumor debulking surgery and palliative chemotherapy for what is considered most likely advanced stage ovarian carcinoma. Her initial prealbumin was 4.6, and slow and steady improvement has been noted most recently, slightly less than 10. A small-bowel follow-through was performed yesterday, which shows incomplete passage through the ileum. On the basis of these findings and some improvement of her nutritional status, I have recommended laparotomy with excision of the mass if possible and if not possible palliative small bowel bypass for palliation. Her family and the patient herself were well aware of the risks of all of this and all parties including patient understand that her underlying problem is incurable. Understanding this she wished to proceed. FINDINGS: Markedly distended small bowel was noted. The pelvic mass was completely unresectable and contiguous with the retroperitoneum and right lateral sidewall. It had enveloped and incorporated the terminal ileum and portion of cecum. Ultimately, performed was a palliative [id number] ileo right-sided colostomy. Biopsy of retroperitoneal mass was Electronically Signed By: DEMETRI REES MD 05/09/19 1119 PATIENT NAME: SILAS HAWK OPERATIVE REPORT DATE OF : 38 REPORT #: [id number] PHYSICIAN: DEMETRI REES MD PCP: GEORGES CHONG MD REPORT IS CONFIDENTIAL AND NOT TO BE RELEASED WITHOUT AUTHORIZATION [facility] [address] [place] [id number] Signed undertaken to better characterize the tumor itself. A special note was no evidence of generalized carcinomatosis. There was some mesh from prior incisional hernia repair that was excised in continuity with portion of omentum. At conclusion, decompression of the small bowel and palliative enterocolostomy has been accomplished, which likely will improve her overall situation. The PEG tube that has been placed is left as is. DESCRIPTION OF PROCEDURE: The patient was brought to the operating room, given a general endotracheal anesthetic. Preoperative antibiotic cefoxitin had been given. Sequential compression device stockings were not used. She has been on Lovenox therapeutically for several weeks. A Barton catheter was placed. The nurse noted that there was fecal material within the vaginal canal and some question of possible colovaginal fistula was described, but this is not certain. The abdomen was prepared sterilely and Ioban applied over the abdomen as well. An incision was made extending from the symphysis pubis to the umbilicus and later extended cephalad. The abdomen was entered and markedly distended, dilated, and edematous. Small bowel loops were noted consistent with obstruction. There was no evidence of carcinomatosis proper. Omental adhesions to overlying implanted mesh from prior incisional hernia repair were noted. An incision was extended cephalad to better evaluate the abdomen. The mass in the right pelvis was completely unresectable. It was contiguous with retroperitoneum and the sacrum. Palpation could be undertaken inferiorly and to the left and showed it to be contiguous with the sacrum as well. Likely the pelvic mass accounted for the ileal venous thrombosis simply by a pressure phenomenon alone. As the lesion was not resectable by any means, optimization of palliative intervention was deemed paramount importance. The small bowel was quite distended and inflamed and an enterotomy was made in a controlled way with a silk pursestring suture allowing for decompression of small bowel and better examination of the abdomen. The bowel was milked from the ligament of Treitz to the terminal ileum allowing for marked decompression. That puncture site was then oversewn with interrupted 3-0 silk suture in a watertight fashion. Care was taken to avoid inordinate contamination of the peritoneal cavity with this decompression. The small bowel was able to be lifted and elevated. There was no carcinomatosis throughout the abdomen. There was adenopathy in the retroperitoneum. The area considered community service representative of tumor, outside of the tumor itself, was identified and elliptical biopsy undertaken with a #15 blade. The tissue had minimal bleeding. Electrocautery was used for hemostasis. The transverse colon and right colon were completely decompressed. It was deemed most advisable to perform a palliative [id number] ileo right-sided colostomy leaving the [place] terminal ileum, cecum, and unresectable mass in situ. Electronically Signed By: DEMETRI REES MD 05/09/19 1119 PATIENT NAME: SILAS HAWK OPERATIVE REPORT DATE OF : 38 REPORT #: [id number] PHYSICIAN: DEMETRI REES MD PCP: GEORGES CHONG MD REPORT IS CONFIDENTIAL AND NOT TO BE RELEASED WITHOUT AUTHORIZATION [facility] [address], [place] [address] Signed The right colon was mobilized by mobilizing the white line of Toldt and a spos-dz-[id number] enterocolostomy then undertaken in a two-layer technique with interrupted 3-0 silk suture and interrupted 3-0 Vicryl suture. The anastomosis was watertight. Irrigation was undertaken quite extensively, particularly given the minimal contamination related to decompression of the bowel itself. Photographs were taken. A portion of mesh contiguous with the omentum was then excised and sent as a separate specimen. Palpation of the liver showed it to be a dominant palpable mass in the right lobe, but no sign of smaller lesions. The PEG tube that was in place for the stomach was left in situ and not otherwise explored. Irrigation was undertaken with warm saline solution containing antibiotics and plan is made for closure. Small bowel was returned to a natural anatomic configuration. The omentum was placed over the abdominal contents. The midline fascia was reapproximated with running bidirectional #1 PDS suture. Subcutaneous tissue was copiously irrigated and skin closed with running subcuticular 3-0 Vicryl. Steri-Strips were applied as was a Mepilex silver sponge dressing and an OpSite. Not mentioned previously was a separate stab incision in the left lower quadrant allowing for placement of a 7 mm flat Syd drain into the depths of the pelvis as this would be a dependent area vulnerable to infectious development. The operation was prolonged, complicated, and difficult. Demetri Rees MD /MODL /[id number] cc: MD Shorty Arredondo MD Lohith Veerappa Reddy, MD Jonathan Hitzman, MD Electronically Signed By: DEMETRI REES MD 05/09/19 1119 PATIENT NAME: SILAS HAWK OPERATIVE REPORT DATE OF : 38 REPORT #: [id number] PHYSICIAN: DEMETRI REES MD PCP: GEORGES CHONG MD REPORT IS CONFIDENTIAL AND NOT TO BE RELEASED WITHOUT AUTHORIZATION [facility] [address] [place] [id number] Signed MD Alee Dumont Copies: VILLA JOSE SHELDON MD REDDY, LOHITH VEERAPPA MD HITZMAN, JONATHAN MD ~ Electronically Signed By: DEMETRI REES MD 05/09/19 1119 PATIENT NAME: MERRY HAWKINE OPERATIVE REPORT DATE OF : 38 REPORT #: [id number] PHYSICIAN: DEMETRI REES MD PCP: GEORGES CHONG MD REPORT IS CONFIDENTIAL AND NOT TO BE RELEASED WITHOUT AUTHORIZATION
--- NOTE | 2019-05-09 11:54 | NUR ---
TRIPLE LUMEN IJ CENTRAL LINE PLACED BY DR. REES. STERILE PROCEDURE FOLLOWED. PATIENT TOLERATED PROCEDURE WELL. BLOOD RETURN NOTED IN EACH LUMEN. CHEST XRAY ORDERED TO CONFIRM PLACEMENT.
--- NOTE | 2019-05-09 12:12 | NUR ---
Met with Candelaria in her room. Children and Dr. Freitas present. is encouraging her to try jello and she is not interested as she denies any appetite. "Nothing sounds good". discussing feedings by tube and change of central line over wire. Case Management will continue to follow.
--- NOTE | 2019-05-09 12:20 | NUR ---
G TUBE CLAMPED PER DOCTOR ORDER
--- NOTE | 2019-05-09 13:49 | NUR ---
GARCIA D/C'D PER PROTOCOL. IV REMOVED. PATIENT DENIES PAIN OR NAUSEA. TPN INFUSING AT 83 MLS/HR INTO DISTAL LUMEN. DAUGHTER IN ROOM WITH PATIENT. DISCUSSED POC WITH PATIENT, AGREES TO AMBULATE HALLS AND SIT IN CHAIR. ABDOMINAL MIDLINE DRESSING CLEAN, DRY, AND INTACT. PATIENT REFUSED ICE TO INCISION. WATER REFRESHED. PATIENT ATE SEVERAL BITES OF JELLO, REPORTS NO NAUSEA. G-TUBE STILL CLAMPED. NO FURTHER NEEDS, CALL LIGHT WITHIN REACH.
--- NOTE | 2019-05-09 13:56 | NUR ---
RN'S HAVING TO START NEW IV, PT AND FAMILY FRUSTRATED. SON MENTIONED THAT HE WAS NOT HAPPY THAT AN IV HAD TO BE STARTED, AND SAID PT DID NOT WANT STUDENTS IN TODAY. PT HAS HAD LOTS OF COMPANY, WILL CONTINUE TO FOLLOW NEEDED
--- NOTE | 2019-05-09 15:52 | NUR ---
PATIENT IS SLEEPING DAUHTER IN ROOM.
--- NOTE | 2019-05-09 16:56 | NUR ---
NEW BAG OF TPN INFUSING, LINES CHANGED. SECOND RN VERIFICATION OF BAG [place] ORDER WITH JOHN DUNHAM. CENTRAL LINE FLUSHED, HAS BLOOD RETURN. IV METOPROLOL GIVEN VIA MEDIAL CENTRAL LINE, FLUSHED WELL, SLOW BLOOD RETURN, HEPARIN LOCKED. JOHN TROY AND SUDARSHAN ASSISTING PT TO BATHROOM AND THEN TO ATTEMPT WALK IN DON.
--- NOTE | 2019-05-09 17:00 | NUR ---
PATIENT SITTING UP IN BED WITH FAMILY IN ROOM. PATIENT AMBULATED TO TOILET, BOWEL MOVEMENT PRODUCED. NEW LINENS PROVIDED. TPN CONTINUES INFUSING AT 83 MLS/HR. ELSIE DRAIN AND G TUBE EMPTIED. WAITING TO VOID POST GARCIA REMOVAL. LUMENS ARE HEP-LOCKED. PATIENT DENIES ANY FURTHER NEEDS AT THIS TIME, CALL LIGHT WITHIN REACH.
--- NOTE | 2019-05-09 20:13 | NUR ---
PATIENT JUST GOT BACK INTO BED AFTER USING THE BATHROOM WITH FRONT WHEEL WALKER. NO C/O PAIN AT THIS TIME. DAUGHTER AT BED SIDE. CALL LIGHT IN REACH. THIS IS THE FIRST VOID SINCE GARCIA REMOVED THIS AFTERNOON.
--- NOTE | 2019-05-09 20:25 | NUR ---
JUST CALLED IN TO CHECK ON THE PATIENT AND TO LET US KNOW TO PUT IN AN ORDER THAT WOULD BE COVERING UNTIL HE IS BACK ON MONDAY. PATIENT'S DAUGHTER JUST LEFT THE PATIENT JUST WENT BACK TO SLEEP. CALL LIGHT IN REACH.
--- NOTE | 2019-05-09 22:50 | NUR ---
PATIENT DENIES PAIN. ABD DRESSING CDI. ELSIE PUTTING OUT SMALL AMOUNTS OF SEROSANGUINOUS FLUID. PATIENT SAYS SHE IS VERY EXHAUSRTED AND READY FOR SLEEP. VS AND I+O DONE. PATIENT HAD NO OTHER NEEDS. ECVENING MEDS GIVEN. LIGHTS TURNED DOWN SO PATIENT CCAN SLEEP AND CALL LIGHT IS IN REACH. PATIENT SAID SHE WOULD CALL IF SHE NEEDS ANYTHING.
--- NOTE | 2019-05-10 01:05 | NUR ---
PATIENT RESTING QUIETLY IN LOW FOWLERS POSITION WITH EQUAL AND REGULAR RESPIRATIONS. CALL LIGHT IN REACH AND EYES CLOSED.
--- NOTE | 2019-05-10 02:49 | NUR ---
PATIENT BACK IN BED NOW AFTER 3 PERSON ASSIST WITH FWW TO THE BATHROOM TO VOID, GET A STANDING WEIGHT AND THEN BACK INTO BED. ALLYVEN DRESSING STILL IN PLACE ON THE COCCYX. PATIENT MOVING VERY SLOWLY AND GETS SHORT OF BREAT WITH EXERTION. RESTING QUIETLY NOW WITH CALL LIGHT IN REACH.
--- NOTE | 2019-05-10 04:47 | NUR ---
PATIENT HAS RESTED WELL MOST OF THE NIGHT AND HAD NO C/O PAIN. ONLY UP AT THE BEGINING OF THE SHIFT AND WHEN SHE NEEDS TO USE THE BATHROOM. LUNGS REMAIN DEMINISHED IN THE BASES BILAT WITH FINE CRACKLES. HAS STAYED WITHIN HER FLUID RESTRICTION. CALL LIGHT IN REACH AND RESTING QUIETLY AT THIS TIME.
--- NOTE | 2019-05-10 05:04 | NUR ---
PATIENT HAS RESTED WELL MOST OF THE NIGHT EXCEPT FOR WHEN SHE NEEDS TO GET UP AND GO TO THE RESTROOM. SHE IS STILL VERY EDEMATOUS AND VERY WEAK AND TIRED. CENTRAL LINE IS WORKING WELL. TPN RUNNING AND OTHER 2 PORTS ARE HEPARIN LOCKED. PATIENT HAS DECREASED URINE OUTPUT, BUT IS NOT REALLY TAKING IN ANY ORAL FLUIDS EITHER. PATIENT RESTING WITH EYES CLOSED AND REGULAR AND EVEN RESPIRATIONS AT THIS TIME. ABD DRESSING HAS REMAINED CDI, WITH SEROSANGUINOUS DRAINAGE FROM THE ELSIE. CALL LIGHT IS IN REACH.
--- NOTE | 2019-05-10 06:43 | NUR ---
PATIENT JUST UP TO THE BATHROOM TO VOID 200MLS AND HAD SOME OILISH DIARRHEA. UP WITH 2PA AND FWW. PATIENT BACK TO BED. BLOOD DRAW DONE AT 0610 FROM CENTRAL LINE THEN FLUSHED WITH 20MLS. PATIENT RESTING IN BED NOW AT THIS TIME. CALL LIGHT IN REACH.
--- NOTE | 2019-05-10 07:38 | NUR ---
RECIEVED BEDSIDE REPORT FROM JOHN SIMMS. PT IS AWAKE AND ALERT IN BED, STATES NO PAIN AT THIS TIME.
--- NOTE | 2019-05-10 08:05 | NUR ---
REPORT RECEIVED BY RN. ORDERS ACKNOWLEDGED.
--- NOTE | 2019-05-10 09:20 | NUR ---
PATIENT AMBULATED TO TOILET WITH TWO PERSON SBA AND FWW. PATIENT VOIDS 200 MLS. ASSESSMENT COMPLETE, PATIENT REPORTS NO PAIN OR NAUSEA. MIDLINE INCISION IS C/D/I. TPN RUNNING AT 83 MLS/HR. DAUGHTER IN ROOM. PATIENT AMBULATED TO CHAIR. AM MEDICATIONS GIVEN. NO FURTHER NEEDS AT THIS TIME, CALL LIGHT WITHIN REACH.
--- NOTE | 2019-05-10 09:35 | NUR ---
PATIENT RESTING IN BED. DAUGHTER AND RN IN ROOM. PATIENT GOES TO USE BATHROOM. PATIENT USES WALKER. PATIENT BACKS TO CHAIR. TWO PERSON ASSISTING. LINENS CHANGED. DEPENDS CHANGED. VITAL SIGNS AND I&O DONE. CALL LIGHT WITHIN REACH. NO OTHER NEEDS AT THIS TIME
--- NOTE | 2019-05-10 10:47 | NUR ---
PATIENT SITTING UP IN CHAIR. DAUGHTER AND SON IN ROOM. PATIENT BACKS TO BED. TWO PERSON ASSISTING. CALL LIGHT WITHIN REACH. NO OTHER NEEDS AT THIS TIME
--- NOTE | 2019-05-10 11:13 | NUR ---
DR. KAUR IN ROOM TO DISCUSS POC WITH PATIENT. IMPORTANCE OF CONTINUING TO EAT AND DRINK TO INCREASE GUT MOTILITY ENCOURAGED. ALL QUESTIONS AND CONCERNS ANSWERED. PATIENT DENIES FURTHER NEEDS AT THIS TIME, CALL LIGHT WITHIN REACH.
--- NOTE | 2019-05-10 12:00 | NUR ---
PATIENT SITTING IN CHAIR WITH FAMILY VISITING. TPN INFUSING AT 83 MLS/HR. PATIENT DENIES FURTHER NEEDS AT THIS TIME, CALL LIGHT WITHIN REACH.
--- NOTE | 2019-05-10 12:13 | NUR ---
PT LAYING IN BED, SMILED WHEN I ENTERED RM. FAMILY AT . PT MENTIONED THAT SHE SLEPT FAIRLY WELL. GAVE ENCOURAGEMENT, GOOD VISIT WITH FAMILY. EXTENDED A BLESSING. WILL FOLLOW NEEDED
--- NOTE | 2019-05-10 13:12 | NUR ---
PATIENT RESTING IN BED. DAUGHTER AND RN IN ROOM. VITAL SIGNS AND I&O DONE. CALL LIGHT WITHIN REACH. NO OTHER NEEDS AT THIS TIME
--- NOTE | 2019-05-10 13:53 | NUR ---
Candelaria resting in bed at my visit, son is in the room. Denies taking any jello and states she feels like resting. When asked what her plans are for discharge, she states she doesn't know and hasn't thought about it. Asked if she wants to go home and if she would consider Home Health or Hospice. Is not in a chatty mood. Angry. She does state children would probable help her. Suggested she begin thinking about where she wants to go on discharge and if she will need assistance. Let her know there are resources available to help her and her children.
--- NOTE | 2019-05-10 15:01 | NUR ---
PATIENT ON A CLEAR LIQUID DIET BUT IS NOT TAKING ANYTHING BY MOUTH. 2 LITERS OF TPN WITH LIPIDS M-W-F CONTINUES. THE PLAN IS TO INITIATE SUPPLEMENTAL PEG TUBE FEEDINGS ALONG WITH ORAL INTAKE ONCE GUT FUNCTION RETURNS FULLY. WILL CONTINUE TO MONITOR.
--- NOTE | 2019-05-10 15:30 | NUR ---
PATIENT SITTING IN CHAIR WATCHING TV. FAMILY IN ROOM VISITING. PO INTAKE INCREASING, PATIENT "LIKES ICE TEA." NO FURTHER NEEDS AT THIS TIME, CALL LIGHT WITHIN REACH.
--- NOTE | 2019-05-10 16:00 | NUR ---
TPN AND LIPIDS HUNG. DOUBLE CHECKED WITH SECOND RN. PATIENT AMBULATED FROM CHAIR TO TOILET, INCONTINENT OF URINE. PATIENT AMBULATED BACK TO BED, WARM BLANKET PROVIDED. NO FURTHER NEEDS AT THIS TIME, CALL LIGHT WITHIN REACH.
--- NOTE | 2019-05-10 17:48 | NUR ---
PATIENT RESTING IN BED. FAMILY IN ROOM. PATIENT GOES TO USE BATHROOM. PATIENT USES WALKER. TWO PERSON ASSISTING. PATIENT BACKS TO BED. PATIENT USING A CLEAN GOWN AND ADULT PULL UP. VITAL SIGNS AND I&O DONE. CALL LIGHT WITHIN REACH. NO OTHER NEEDS AT THIS TIME
--- NOTE | 2019-05-10 18:30 | NUR ---
PATIENT AMBULATED TO TOILET WITH TWO PERSON SBA WITH FWW. PATIENT INCONTINENT OF URINE. NEW ATTENDS PROVIDED. PATIENT AMBULATED BACK TO BED WITH TWO PERSON SBA WITH FWW. DENIES ANY FURTHER NEEDS, CALL LIGHT WITHIN REACH.
--- NOTE | 2019-05-10 20:00 | NUR ---
PATIENT RESTING IN BED VISITING WITH 3 FAMILY MEMBERS. PATIENT GOING TO THE BATHROOM WITH TANK INSULATOR RUBBER'S.
--- NOTE | 2019-05-10 20:13 | NUR ---
PATIENTS VS AND I&OS COMPLETE. PATIENT SAID SHE DID NOT NEED TO USE THE RESTROOM. I OFFERED FRESH ICE WATER AND SHE ACCEPTED. CALL LIGHT IN PLACE, AND BST.
--- NOTE | 2019-05-10 22:32 | NUR ---
PATIENT HAS NO C/O PAIN AT THIS TIME. ABD DRESSING CDI AND ELSIE DRAIN PUT OUT 30MLS SEROSANGUINOUS FLUID. BLUE AND WHITE PORTS BOTH FLUSHE WITH 20MLS NS AND 5MLS HEPARIN, BOTH DRAW AND FLUSH WELL. BROWN [place] RUNNING TPN AND LIPIDS. PATIENT TIRED AND READY TO GET SOME SLEEP. VISITORS GONE AND LIGHTS TURNED DOWN AND DOOR CLOSED AT PATIENT'S REQUEST. CALL LIGHT IN REACH.
--- NOTE | 2019-05-11 00:30 | NUR ---
PATIENT UP TO THE BATHROOM 2PA WITH FWW AND BACK TO BED. PATIENT HAD NO OTHER NEEDS AT THIS TIME AND WANTS TO GO BACK TO SLEEP AND PATIENT CALL LIGHT IN REACH.
--- NOTE | 2019-05-11 02:36 | NUR ---
PATIENT UP TO THE BATHROOM AND FEELING A LITTLE WARM. IV TYLENOL GIVEN FOR TEMP. OF 99.2F. PATIENT BACK IN BED AND RESTING. CHANGED TV CHANNEL FOR HER AND SHE IS GOING TO TRY AND GO BACK TO SLEEP.
--- NOTE | 2019-05-11 04:08 | NUR ---
2pa pt to toilet, bk to bed, gave fresh ice water
--- NOTE | 2019-05-11 05:29 | NUR ---
PATIENT HAS RESTED MOST OF THE NIGHT, EXCEPT FOR WHEN SHE NEEDED TO GET UP TO THE RESTROOM WHICH SHE STILL NEEDS A 2PA WITH FWW. PATIENT DID GET SOME IV TYLENOL DURING THE NIGHT FOR LOW GRADE FEVER OF 99.2F AND SWEATING. PATIENT FEELING BETTER NOW. JUST BACK TO BED AFTER USING THE BATHROOM. CALL LIGHT IS IN REACH.
--- NOTE | 2019-05-11 06:26 | NUR ---
pATIENT WAS UP 3 TIME DURING THE NIGHT 2 PERSON ASSIST, WITH 4 WW. CALL LIGHT IN REACH AND FRESH WATER WAS GIVEN.
--- NOTE | 2019-05-11 06:27 | NUR ---
PATIENT WAS UP 3 TIME DURING THE NIGHT 2 PERSON ASSIST TO BATHROOM WITH 4WW. CALL LIGHT IN REACH AND FRESH WATER GIVEN.
--- NOTE | 2019-05-11 07:00 | NUR ---
REPORT RECEIVED BY RN. ORDERS ACKNOWLEDGED.
--- NOTE | 2019-05-11 09:30 | NUR ---
PATIENT AMBULATED TO BED FROM CHAIR WITH ONE PERSON SBA AND FWW. WARM BLANKETS PROVIDED. PATIENT STATES SHE FEELS "A LITTLE BETTER TODAY." FAMILY IN ROOM VISITING WITH PATIENT. AM MEDICATIONS GIVEN. TPN RUNNING AT 83.8 MLS/HR. MEDIAL AND PROXIMAL PORTS OF CENTRAL LINE FLUSH AND RETURN BLOOD. POC DISCUSSED WITH PATIENT, AND PATIENT IS AGREEABLE. NO FURTHER NEEDS AT THIS TIME, CALL LIGHT WITHIN REACH.
--- NOTE | 2019-05-11 09:44 | NUR ---
DR. KAUR IN ROOM DISCUSSING POC WITH PATIENT.
--- NOTE | 2019-05-11 13:30 | NUR ---
PATIENT LAYING IN BED WITH FAMILY IN ROOM. ABDOMINAL DRESSING REMOVED, MIDLINE INCISION IS WELL-APPROXIMATED WITH NO DRAINAGE. INCISION FOR ELSIE DRAIN IS CLEAN, DRY AND HAS NO DRAINAGE. ABDOMEN IS NOT TENDER TO THE TOUCH. ELSIE DRAINED 45 MLS OF YELLOW PERITONEAL FLUID. G TUBE IS CLAMPED, PATIENT REPORTS NO PAIN OR NAUSEA. PATIENT ENCOURAGED TO EAT FOOD DESPITE NO APPETITE, LOW ORAL INTAKE. PATIENT DENIES PASSING GAS, LAST BOWEL MOVEMENT WAS YESTERDAY. NO FURTHER NEEDS AT THIS TIME, CALL LIGHT WITHIN REACH.
--- NOTE | 2019-05-11 14:30 | NUR ---
PT WITH SBA AND FWW TO BATHROOM. MISSED VOID. PT ENCOURAGED TO SIT UP IN CHAIR. PT REFUSED, REFERENCING TIREDNESS. THIS NURSE EDUCATED ON IMPORTANCE OF GETTING OUT OF BED MUCH POSSIBLE. PT THEN AGREEABLE TO SIT UP. PT WITH VERY MINIMAL ORAL INTAKE DESPITE ABSENCE OF NAUSEA OR VOMITING. PT ENCOURAGED HOURLY TO DRINK EVEN WITH NO APETITE. ALSO EDUCATED ON IMPORTANCE OF ORAL INTAKE. PT MOST TIMES UNWILLING TO EAT. G-TUBE CLAMPED. PT DENIES FEELING BLOATED OR NAUSEOUS. PT WITH MED LIQUID BOWEL MOVEMENT TODAY. PT ALSO REFUSING TO AMBUATE OTHER THEN TO THE TOILET AND BACK TO BED. PT NEEDING ENCOURAGMENT MULTIPLE TIMES FOR EVERY ACTIVITY.
--- NOTE | 2019-05-11 16:08 | NUR ---
PATIENT SLEEPING IN BED WITH FAMILY IN ROOM. NEW BAG OF TPN STARTED AT 83.8 MLS/HR. DISTAL LUMEN FLUSHES AND RETURNS BLOOD PER PROTOCOL. SECOND RN CHECK FOR THE TPN. ASSESSMENT COMPLETE. NO FURTHER NEEDS AT THIS TIME, CALL LIGHT WITHIN REACH.
--- NOTE | 2019-05-11 16:47 | NUR ---
A LITTLE AFTER 1400 PATIENT CALLED AND WANTED TO GET BACK INTO BED BUT BEFORE SHE GOT BACK INTO BED I TOOK HER TO THE BATHROOM WITH THE HELP OF HER DAUGHTER. THAN WE PUT HER BACK IN BED.
--- NOTE | 2019-05-11 19:00 | NUR ---
RECEIVED REPORT FROM JOHN TROY. pt RESTING IN BED WITH FAMILY AT BEDSIDE. WHITEBOARD UPDATED. NO REQUESTS AT THIS TIME. CALL LIGHT WITHIN REACH.
--- NOTE | 2019-05-11 20:30 | NUR ---
SUPERINTENDENT RADIO COMMUNICATIONS ROUNDING NOTE. PT RESTING IN BED WITH EYES CLOSED. CALL LIGHT IN REACH. ROOM IN VIEW OF RN STATION. WHITE BOARD UPDATED.
--- NOTE | 2019-05-11 21:00 | NUR ---
BROKE HANDLER IN ROOM DOING VITALS. pt REQUIRED 2PA FWW TO TOILET, SMALL VOID AND LIQUID BM. ASSESSMENT DONE. MEDICATIONS GIVEN (SEE MAR). NO REQUESTS AT THIS TIME. CALL LIGHT WITHIN REACH.
--- NOTE | 2019-05-11 23:00 | NUR ---
BLOOD PRESSURE TAKEN, MEDICATION GIVEN (SEE MAR). INACTIVE LUMENS HEP LOCKED. BLOOD RETURN ON ALL LUMENS. NO REQUESTS AT THIS TIME. CALL LIGHT WITHIN REACH.
--- NOTE | 2019-05-12 00:15 | NUR ---
pt used call light to ask for assistance to the restroom. AZ Miller and myself assisted pt. Nothing was needed after getting her back into bed.
--- NOTE | 2019-05-12 02:50 | NUR ---
ROUNDED ON pt. RESTING IN BED AWAKE, REQUESTED ASSISTANCE TO VOID. 2PA FWW UP TO TOILET AND BACK TO CHAIR. ELSIE DRAIN EMPTIED. ASSESSMENT DONE. WARM BLANKET AND FRESH WATER PROVIDED. CALL LIGHT WITHIN REACH.
--- NOTE | 2019-05-12 05:28 | NUR ---
pt RESTING IN CHAIR. VITALS DONE. MEDICATION GIVEN (SEE MAR). pt UP TO VOID AND BACK TO BED. CALL LIGHT WITHIN REACH.
--- NOTE | 2019-05-12 06:06 | NUR ---
pt RESTED ON AND OFF DURING NIGHT. pt UP TO VOID MULTIPLE TIMES 2PA FWW. SAT IN CHAIR FOR A FEW HOURS. ALL LUMENS OF CENTRAL LINE DRAW BACK BLOOD, TPN RUNNING IN BROWN LUMEN. VERY LITTLE TO NO PO INTAKE. MIDLINE INCISION WITH STERISTRIPS DRY AND INTACT. ELSIE DRAIN OUTPUT SS. G-TUBE CLAMPED. USES CALL LIGHT APPROPRIATELY.
--- NOTE | 2019-05-12 07:05 | NUR ---
PATIENT LAYING IN BED WATCHING TV. TPN RUNNING AT 83.8 MLS/HR. REPORT RECEIVED BY RN. PATIENT STATES SHE SLEPT "WELL." NO FURTHER NEEDS AT THIS TIME, CALL LIGHT WITHIN REACH.
--- NOTE | 2019-05-12 07:40 | NUR ---
DR. NATHAN IN ROOM TO DISCUSS POC WITH PATIENT. MD ORDERS ACKNOWLEDGED TO ADVANCE DIET TO REGULAR AND REMOVE G-TUBE BAG FOR VENTING. PATIENT AGREEABLE TO POC. NO FURTHER NEEDS AT THIS TIME, CALL LIGHT WITHIN REACH.
--- NOTE | 2019-05-12 07:55 | NUR ---
SBA TO BATHROOM. VOIDED 100 MLS AND 1 MISSED VOID. PT IS UP TO CHAIR WITH LEGS ELEVATED. ENSURE AND ICE WATER PROVIDED. DENEIS NEEDS. CALL LIGHT IN REACH.
--- NOTE | 2019-05-12 09:45 | NUR ---
PATIENT LAYING IN BED WITH FAMILY IN ROOM. AM MEDICATIONS GIVEN. CENTRAL LINE DRESSING C/D/I. PROXIMAL AND MEDIAL LUMENS FLUSH AND RETURN BLOOD PER PROTOCOL. MIDLINE INCISION IS WELL-APPROXIMATED WITH NO DRAINAGE. ELSIE DRAIN CONTINUES TO DRAIN SEROSANGUINOUS FLUID. TPN RUNNING AT 83 MLS/HR. PATIENT DENIES FURTHER NEEDS AT THIS TIME, CALL LIGHT WITHIN REACH.
--- NOTE | 2019-05-12 11:26 | NUR ---
THIS MORNING PATIENT WAS ALREADY SITTING UP IN CHAIR SO WE WENT A HEAD AND DID A BED BATH AND CHANGED HER GOWN. THAN NURSE CAME IN AN HELPED ME TAKE HER TO THE BATHROOM AFTER SHE WAS DONE IN THE BATHROOM WE WALKED PATIENT BACK TO THE CHAIR.
--- NOTE | 2019-05-12 13:16 | NUR ---
PATIENT AMBULATED WITH TWO PERSON SBA WITH FWW TO TOILET. TPN RUNNING AT 83.8 MLS/HR. CENTRAL LINE DRESSING IS C/D/I. PATIENT RETURNED TO BED WITH TWO PERSON SBA WITH FWW. WARM BLANKETS PROVIDED. NO FURTHER NEEDS AT THIS TIME, CALL LIGHT WITHIN REACH.
--- NOTE | 2019-05-12 15:00 | NUR ---
PATIENT LAYING IN BED WITH FAMILY IN ROOM. TPN RUNNING AT 83 MLS/HR. DENIES PAIN AND NAUSEA. NO FURTHER NEEDS, CALL LIGHT WITHIN REACH.
--- NOTE | 2019-05-12 17:30 | NUR ---
PATIENT LAYING IN BED WITH FAMILY IN ROOM VISITING. IV METOPROLOL GIVEN, TOLERATED WELL. CENTRAL LINE DRESSING IS C/D/I. BLOOD RETURN NOTED ON PROXIMAL AND MEDIAL LUMENS, BOTH LUMENS FLUSHING WELL. PATIENT DENIES FURTHER NEEDS, CALL LIGHT WITHIN REACH.
--- NOTE | 2019-05-12 18:20 | NUR ---
PATIENT AMBULATED TO TOILET WITH 2 PERSON SBA WITH FWW. TPN RUNNING AT 83 MLS/HR. PATIENT VOIDED. BOWEL MOVEMENT IS DIFFUSE WITH BLOOD. PATIENT AMBULATED FROM TOILET TO HALLWAY FOR WALK WITH TWO PERSON SBA WITH FWW. PATIENT TEMP OF 99.3 PRIOR TO AMBULATION. PATIENT AMBULATED 107 FEET, WITH THREE BREAKS SITTING IN THE WHEELCHAIR. RETURNED TO BED, WARM BLANKETS PROVIDED. VITAL SIGNS TAKEN, TEMP OF 98.7. NO FURTHER NEEDS AT THIS TIME, CALL LIGHT WITHIN REACH.
--- NOTE | 2019-05-12 18:45 | NUR ---
DR. NATHAN NOTIFIED OF PATIENT'S BLOODY, DIFFUSE STOOL. MD ORDERS ACKNOWLEDGED TO ADD CBC TO TOMORROW MORNING'S LABS. VITAL SIGNS TAKEN POST-STOOL. BP: 125/45 (66) AND PULSE: 94-102
--- NOTE | 2019-05-12 19:15 | NUR ---
BEDSIDE REPORT RECEIVED FROM OFFGOING RN'S STEVE. PT RESTIN GIN BED WITH FAMILY AT BEDSIDE. PT DENIES NEEDS AT THIS TIME. CALL LIGHT IN REACH.
--- NOTE | 2019-05-12 21:51 | NUR ---
pt used restroom with assistance of JOHN Gottlieb and myself. VS and I&Os complete. Fresh water given. Nothing further needed at this time.
--- NOTE | 2019-05-12 22:10 | NUR ---
PT ASSESSMENT COMPLETE. PT RESTING IN BED. DENIES PAIN, NAUSEA, OR SOB. MIDLINE INCISION BROOKE WITH STERISTRIPS PRESENT. SMALL AMOUNT OF DRY DRAINAGE PRESENT. ELSIE DRAIN WITH SS DRAINAGE PRESENT. BT'S ACTIVE. ABD TENDER. EDEMA 1+ TO BLE, BLE EDEMA 4+. PT UP TO USE THE BATHROOM AND BACK TO BED WITH 2 PA AND FWW. PT TOLERATED WELL. TPN RUNNING TO CENTRAL LINE. PT DENIES FURTHER NEEDS. CALL LIGHT WITHIN REACH.
--- NOTE | 2019-05-12 23:46 | NUR ---
PT RESTING IN BED. DENIES PAIN. DENIES NEEDS AT THIS TIME. SCHEDULED MEDS ADMINISTERED. CALL LIGHT IN [facility]. ROOM IN VIEW OF RN STATION.
--- NOTE | 2019-05-13 01:05 | NUR ---
PATIENT USED THE CALL LIGHT. THIS LEAD SOFTWARE TEST ENGINEER AND PRIMARY RN HELPED PATIENT USED THE BATHROOM USING WALKER. PATIENT IS BACK IN BED. CALL LIGHT IN REACH.
--- NOTE | 2019-05-13 03:32 | NUR ---
PT UTILIZES CALL LIGHT TO USE THE BATHROOM. PT UP TO BATHROOM AND BACK TO BED WITH 2 PA AND FWW. PT TOLERATED WELL. PT ASSESSMENT COMPLETE. PT DENIES PAIN, NAUSEA, OR SOB. ASSESSMENT UNCHANGED FROM PREVIOUS. PT DENIES FURTHER NEEDS. CALL LIGHT IN REACH. ROOM IN VIEW OF RN STATION.
--- NOTE | 2019-05-13 05:12 | NUR ---
PT UTILIZES CALL LIGHT, REQUESTS TO USE THE BATHROOM. PT UPTO BATHROOM AND BACK TO BED WITH 2PA. TOLERATED WELL. SCHEDULED MEDS ADMINISTERED. PT DENIES FURTHER NEEDS. CALL LIGHT IN REACH.ROOM IN VIEW OF RN STATION.
--- NOTE | 2019-05-13 05:16 | NUR ---
PT SLEPT OFF AND ON THIS SHIFT. MULTIPLE TRIPS TO THE BATHROOM. NO PAIN, NAUSEA, OR SOB. MIDLINE INCISION BROOKE, STERISTRIPS. NO NEW DRAINAGE. ELSIE DRAIN WITH SS DRAINAGE. G-TUBE CLAMPED. ATTENDS IN PLACE. PITTING EDEMA TO ALL EXTREMITIES. TRIPLE LUMEN CENTRAL LINE. TPN RUNNING TO BROWN LUMEN. OTHER LUMENS WITH GOOD BLOOD RETURN, FLUSH EASILY. HEP LOCKED. 2 PA WITH FWW.
--- NOTE | 2019-05-13 07:44 | NUR ---
bedside report received pt resting soundly
--- NOTE | 2019-05-13 09:00 | NUR ---
PT SON IN THE ROOM. PT UP TO TOILET THEN TO SITIN RECLINER. FOOD AND FLUID ITEMS OFFERED PT REFUSES, SHE DENIES PAIN, NAUSEA, OR OTHER DISCOMFORTS. DR REES IN TO SEE PT
--- NOTE | 2019-05-13 09:30 | NUR ---
PT UP TO RESTROOM WITH 1PA ANS FWW. PT VOIDED AND HAD LIQUID BM. AMB BACK TO CHAIR. DAUGHTER AND ROSHAN HOWARD AT BEDSHI AT THIS TIME. PT BECAME SOB WITH EXERTION, RECOVERED QUICKLY UPON RESTING. BEGAN DRY HEAVING WITH NO EMESIS. PRIMARY NURSE DONNA NOTIFIED.
--- NOTE | 2019-05-13 09:32 | OR ---
[facility] [address], [place] [address] Signed DATE OF OPERATION: 05/09/2019 SURGEON: Demetri Rees MD PREOPERATIVE DIAGNOSIS: Dysfunctional left subclavian central venous catheter, need for central venous access for TPN. POSTOPERATIVE DIAGNOSIS: Dysfunctional left subclavian central venous catheter, need for central venous access for TPN. PROCEDURE PERFORMED: Left subclavian Arrow blue tip triple-lumen catheter placement (over the wire technique). ANESTHESIA: Local 1% lidocaine. 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 She has had right internal jugular central venous catheter with change and more recently a left subclavian line. Although the line infuse as well, it does not aspirate for blood at this point, and on that basis, a central line change is appropriate. The risks of bleeding, infection, pneumothorax, and so forth were reviewed with her and her family. They understand and wished to proceed. FINDINGS: The catheter was changed without problem and good function is noted at conclusion of procedure. The postprocedure chest x-ray is pending. DESCRIPTION OF PROCEDURE: In the semi-recumbent position, after informed consent form signed, the sutures securing the previous central line catheter were removed and the area was prepared with Betadine solution. A sterile drape was applied, and using Arrow blue tip triple-lumen catheter kit, the catheter was withdrawn a few centimeters and transected and the distal lumen identified and flexible wire passed down that channel. The catheter was then carefully withdrawn over the wire. The site was then injected with local anesthetic. The previously inspected and irrigated Arrow blue tip triple-lumen central venous catheter was passed over the wire and the wire was removed. Aspiration on the distal port showed Electronically Signed By: DEMETRI REES MD 05/13/19 0932 PATIENT NAME: SILAS HAWK OPERATIVE REPORT DATE OF : 38 REPORT #: [id number] PHYSICIAN: DEMETRI REES MD PCP: GEORGES CHONG MD REPORT IS CONFIDENTIAL AND NOT TO BE RELEASED WITHOUT AUTHORIZATION [facility] [address], [place] [address] Signed good nonpulsatile dark blood flow. Each port was infused once again with sterile saline. The catheter was secured to the skin with close nylon suture and anti-infective disk and SorbaView dressing applied. Sterility protocol per hospital policy was employed including gowns, gloves, etc. A postprocedure chest x-ray is pending. MD DIONTE Blanca/MODL /[id number] cc: Georges Chong MD Copies: GEORGES CHONG MD ~ Electronically Signed By: DEMETRI REES MD 05/13/19 0932 PATIENT NAME: SILAS HAWK OPERATIVE REPORT DATE OF : 38 REPORT #: [id number] PHYSICIAN: DEMETRI REES MD PCP: GEORGES CHONG MD REPORT IS CONFIDENTIAL AND NOT TO BE RELEASED WITHOUT AUTHORIZATION
--- NOTE | 2019-05-13 10:00 | NUR ---
ORDERS RECEIVED TO START TUBE FEEDING. GASTIC TUBE FLUSHED AND FORMULA STARTED AT 15ML/MIN. RECHECKING PT 15 MINUTES LATER SHE DENIES NAUEA OR DISCOMFORT. RETURNS TO BED TO REST. FAMILOY REMAIN PRESENT IN THE ROOM
--- NOTE | 2019-05-13 11:14 | NUR ---
Spoke with Candelaria and son this am. [place] was difficult as I attempted to discuss Hospice and issue of dementia of father with son. Son states father is capable of caring of self and does not have needs. Explained to son Hospice is available but they do not provide 24 hours caregiving. Candelaria will need to be cared for. When asked if they plan on staying with mom he did not respond. Let him know if they need to hire caregiving it can take 2-4 weeks to hire. He states they do not have the money to hire caregivers. Will speak with the daughter when she comes in.
--- NOTE | 2019-05-13 12:04 | NUR ---
PT CONTINUES TO REFUSE ALL OFFERS OF FOOD AND DRINK ITEMS. SHE HAS EATEN BITES OF APPLESAUCE PROVIDED BY FAMILY. DENIES PAIN OR NEEDS OF. AMBULATION ENCOURAGED
--- NOTE | 2019-05-13 13:08 | NUR ---
PT UP TO TOILET SBA WITH WALKER WELL TOLERATED. ENCOURAGED AMBULATION, PT REFUSES BUT AGREES TO SIT UP IN THE CHAIR FOR A TIME. FAMILY PRESENT IN ROOM FRESH H20 AT CHAIR SIDE CALL LIGHT IN LAP
--- NOTE | 2019-05-13 14:25 | NUR ---
PT SITTING IN CHAIR, ALERT, ORIENTED AND SON JENNY SITTING NEAR. PT LOOKED SOMEWHAT TIRED, SON PRIVATELY EXPRESSED CONCERN THAT PT WON'T EAT. I LET HIM KNOW I WILL VISIT WITH OTHER STAFF WHICH I DID. EXTENDED A BLESSING, WILL FOLLOW NEEDED
--- NOTE | 2019-05-13 15:43 | NUR ---
PT CONTINUES TO TOLERATE TUBE FEED WITH NO NAUSEA OR DISCOMFORT. SHE HAS REFUSED TO AMBULATE THE DON, BUT HAS SET IN THE CHAIR 2X THIS SHIFT AND HAS BEEN UP TO THE TOILET MULTIPLE TIMES. NO REQUEST FOR PAIN MEDS OR OTHER PRNS. PT PASSING SMALL AMOUNTS OF LIQUID STOOLS AT EACH TOILETING.
--- NOTE | 2019-05-13 18:26 | NUR ---
PT HAS REFUSED TO AMBULATE THIS SHIFT, BUT HAS BEEN UP TO TOILET MULTIPLE TIMES AND SAT UP IN THE RECLINER 2X. TF WAS STARTED AGAIN AT 15ML/HR SHE HAS TOLERATED THIS WITH NO C/O NAUSEA OR DISCOMFORT. PT HAS DECLINED ALL OFFERS OF FOOD OR DRINK SIPPING WATER ONLY AND EATING A COUPLE BITES OF APPLESAUCE.
--- NOTE | 2019-05-13 19:05 | NUR ---
PT RESTING IN BED, DAUGHTER AT BEDSIDE, MD IN ROOM ROUNDING ON PT. REPORT RECEIVED FROM OFFGOING RN. CALL LIGHT IN PT'S REACH.
--- NOTE | 2019-05-13 21:50 | NUR ---
PT ASSESSMENT COMPLETE. PT DENIES PAIN, NAUSEA, OR SOB. MIDLINE INCISION BROOKE, STERISTRIPS PRESENT, D/I. ELSIE DRAIN WITH SEROUS FLUID PRESENT. BT'S ACTIVE. PT DENIES ABD TENDERNESS. TUBE FEED INFUSING AT 15 ML/ HOUR. PEG TUBE IRRIGATED WITH 50 ML OF TAP WATER. PT TOLERATED WELL. EDEMA PRESENT TO ALL EXTREMITIES. PT DENIES NEEDS AT THIS TIME. CALL LIGHT IN REACH.
--- NOTE | 2019-05-13 22:28 | NUR ---
PT UTILIZES CALL LIGHT, REQUESTS TO USE THE BATHROOM. PT UP TO BATHROOM AND BACK TO BED WITH 2PA AND FWW. PT INCONTINENT OF URINE BEFORE SHE MADE IT TO THE BATHROOM. PT HAVING LIQ YELLOW STOOL. NEW ATTENDS PLACED. PT DENIES FURTHER NEEDS. CALL LIGHT IN REACH.
--- NOTE | 2019-05-13 23:41 | NUR ---
GEOMAGNETICIAN TO ROOM FOR SCHEDULED MEDICATIONS. PT RESTING WITH EYES CLOSED. WAKES EASILY. ICE WATER REFILLED PT DENIES FURTHER NEEDS. CALL LIGHT IN REACH.
--- NOTE | 2019-05-14 02:16 | NUR ---
PT ASSESSMENT COMPLETE. PT DENIES PAIN, NAUSEA, OR SOB. MIDLINE INCISION WITH STERISTIPS, D/I. ELSIE WITH SERIOUS DRAINAGE PRESENT. BT'S ACTIVE. PT DENIES ABD TENDERNESS. EDEMA UNCHANGED. CENTRAL LINE FLUSHED, ATTEMPTS TO DRAW BLOOD BACK ARE UNSUCCESSFUL. PT DENIES FURTHER NEEDS AT THIS TIME. CALL LIGHT WITHIN REACH.
--- NOTE | 2019-05-14 03:30 | NUR ---
PT UTILIZES CALL LIGHT. UP TO BATHROOM WITH 2PA AND FWW. PT TIRED UPON GETTING BACK TO BED. L FOREARM NOTED TO BE MORE EDEMATOUS THAN UPON PREVIOUS ASSESSMENT, 3+. EDEMA TO LUE REMAINS PREVIOUSLY ASSESSED. PT DENIES FURTHER NEEDS AT THIS TIME. CALL LIGHT IN REACH.
--- NOTE | 2019-05-14 04:30 | NUR ---
ALTAPLASE ADMINISTERED TO BLUE AND WHITE LUMENS OF CENTRAL LINE @ 0400, BLOOD RETURN NOTED FROM BLUE AND WHITE LUMENS AFTER 30 MINS. 5 ML DRAWN FROM EACH LUMEN AND EACH LUMEN FLUSHED WITH 10 MLS OF NS. BOTH LUMENS HEP LOCKED AT THIS TIME. PT RESTING IN BED DENIES FURTHER NEEDS. CALL LIGHT IN REACH.
--- NOTE | 2019-05-14 06:30 | NUR ---
PT UP TO USE BATHROOM AND BACK TO BED WITH 2PA AND FWW. PT VERY TIRED, WINDED DURING TRANSFER. PT AGREES IT TAKES A LOT OF ENERGY. PT DENIES PAIN, NAUSEA, OR SOB. PT REQUESTS FRESH ICE WATER, PROVIDED. G-TUBE IRRIGATED WITH 50 ML TAP WATER. PT DENIES FURTHER NEEDS AT THIS TIME. CALL LIGHT WITHIN REACH.
--- NOTE | 2019-05-14 06:31 | NUR ---
PT AWAKE OFF AND ON THIS SHIFT WITH FREQUENT TRIPS TO BATHROOM. PT DENIES PAIN, NAUSEA, OR SOB. PT VERY FATIGUED AND WINDED WITH TRIPS TO BATHROOM THIS SHIFT. CENTRAL LINE. TPN TO DISTAL, BROWN, LUMEN. BLOOD RETURN PRESENT WHEN PT CROSSES ARM ACROSS CHEST. ALTAPLASE ADMINISTERED THIS SHIFT. TUBE FEED RUNNING AT 15 ML/HR. PEG TUBE IRRIGATED WITH 50 ML Q 8. PITTING EDEMA TO ALL EXTREMTIIES. 2 PA WITH FWW.
--- NOTE | 2019-05-14 07:40 | NUR ---
PT SLEEPING AT THIS TIME, RESP EVEN AND NON LABORED. TPN RUNNING INTO CENTRAL LINE PER DOC ORDER. TUBE FEEDINGS ARE RUNNING AT 15ML/HR. PT HAS NO S/S OF DISTRESS NOTED. CLOSE TO RN STATION. CALL LIGHT WITHIN REACH.
--- NOTE | 2019-05-14 09:30 | NUR ---
Tube feeding rate increased to 30ml/hr per doc order. pt denies abdominal pain/discomfort at this time. Pt denies nausea. Pt transitioning to bathroom with 1PA with use of walker. Pt appears very weak with ambulation. 4+ Lower ext edema noted. Family at bedside. Pt has no needs at this time.
--- NOTE | 2019-05-14 09:43 | NUR ---
PATIENT BACK TO BED FROM CHAIR, 1PA FWW. FAMILY IN ROOM. CALL LIGHT IN REACH. WARM BLANKETS GIVEN. NO FURTHER NEEDS AT THIS TIME.
--- NOTE | 2019-05-14 11:15 | NUR ---
PATIENT JUST GOT BACK INTO BED AFTER BEING UP IN THE CHAIR, LOCAL INTERMODAL TRUCK DRIVER DOING VS, PATIENT ALREADY FALLING ASLEEP. PATIENT STATES SHE IS "TIRED NOW" AND THIS IS ALL SHE CONTRIBUTES TO CONVERSATION. SPOKE WITH HER SEUN, DAUGHTER LORENZA AND SON JENNY WHO ARE ALL IN THE ROOM. DISCUSSED DISCHARGE PLAN. THEY ALL AGREE PATIENT WANTS TO COME HOME. SON AND DAUGHTER BOTH STATE THEY ARE GOING TO HAVE SOMEONE WITH THEM AT ALL TIMES AFTER SHE COMES HOME. DAUGHTER STATES DR REES WILL ORDER HOME HEALTH. WE DISCUSSED THAT TUBE FEEDINGS CAN BE TAUGHT TO FAMILY AND SUPPLIES ARE ORDERED AND DELIVERED STRAIGHT TO HOME BY [employer]. DISCUSSED THAT PATIENT WILL FOLLOW UP WITH DR REES AND HER PCP DR DORANTES. THEY PLAN FOR PATIENT TO SEE ONCOLOGIST EVENTUALLY. DISCUSSED FOR THEM TO START THINKING OF WHAT THEY MIGHT NEED FOR EQUIPMENT AT HOME. AGREED WE WILL TALK AGAIN TOMORROW. QUESTIONS ANSWERED.
--- NOTE | 2019-05-14 11:58 | NUR ---
PT RESTING IN BED, EYES CLOSED, RESP EVEN AND NON LABORED. FAMILY AT BEDSIDE. CALL LIGHT WITHIN REACH. NO NEEDS AT THIS TIME.
--- NOTE | 2019-05-14 14:14 | NUR ---
DID NOT DISTURB PT TODAY. DID HAVE A CHANCE TO VFISIT WITH PT'S DAUGHTER LORENZA. THE [place] ARE CLOSING IN ON HER SO TO SPEAK. OTHER FAMILY MEMBERS HAVE SERIOUS MEDICAL ISSUES-FEELS ALMOST LIKE SHE IS BEING PILED ON. PT NOT HAVING WHAT SHE WOULD DETERMINE A GOOD DAY. LET PT VENT, PRAYED WITH HER AND WILL CONTINUE TO MAKE MYSELF AVAILABLE.
--- NOTE | 2019-05-14 17:08 | NUR ---
CENTRAL LINE CATHETER CHANGED USING STERILE TECHNIQUE PER PROTOCOL. PT TOLERATED WELL. SITE HAS NO S/S OF REDNESS, SWELLING OR INFECTION. PT HAS NO NEEDS AT THIS TIME.
--- NOTE | 2019-05-14 17:47 | NUR ---
PT A&OX4. ON RA, RESP EVEN NON LABORED. TUBE FEEDINGS MARSHA WELL AT 30ML/HR. PT DENIES PAIN AND NAUSEA. PT WEAK, APPEARED VERY WINDED WITH AMBULATION TO BR. 1PA WITH FWW. TRIPLE LUMEN CENTRAL LINE; BROWN PORT TPN; @83ML/HR. PEG TUBE IRRIGATED WITH 50ML Q8HR. PITTING EDEMA +4 TO LOWER EXT. PT DENIES SOB AND OR CHEST PAIN.
--- NOTE | 2019-05-14 19:45 | NUR ---
REPORT RECEIVED FROM DAY SHIFT RN. PT BACK FROM BR TO BED, PT NOTED TO BE SOB. REPOSITIONED IN BED, HOB ELEVATED. TPN INFUSING WITHOUT ISSUE. TUBE FEEDING GOING AT 30 ML/HR. FAMILY IN ROOM. NO OTHER REQUESTS AT THIS TIME. CALL LIGHT IN REACH.
--- NOTE | 2019-05-14 22:00 | NUR ---
EVENING MEDS GIVEN WITHOUT DIFFICULTY. ASSESSMENT COMPLETE. MIDLINE INCISION WELL APPROXIMATED, STERI STRIPS CDI. FEEDING TUBE PATENT RUNNING AT 30 ML/HR. TPN INFUSING AT 83 ML/HR. PT UP TO BR WITH 1 PA AND FWW TO HAVE A LOOSE BM AND VOID. ASSISTED WITH HARESH CARE. BACK TO BED, MARSHA FAIR. PT BECAME SOB AND VERY TIRED AFTER AMBULATION. PT DENIES PAIN OR NAUSEA. ELSIE DRAINING SEROUS FLUID. CENTRAL LINE HEP LOCKED, BRISK BLOOD RETURN ON BLUE LUMEN. WHITE LUMEN DID NOT HAVE BLOOD RETURN, FLUSHED WITH HEPARIN, WILL REASSESS. NO FURTHER NEEDS AT THIS TIME, CALL LIGHT IN REACH.
--- NOTE | 2019-05-15 00:45 | NUR ---
PT UP TO BR WITH 1 PERSON SBA. BACK TO BED, VERY SOB AND WEAK. TWO PERSON ASSIST TO GET PT BACK INTO BED. WHITE LUMEN REASSESSED, FLUSHES WELL BUT DOES NOT HAVE BLOOD RETURN. ALTEPLASE ADMINISTERED PER ORDER.
--- NOTE | 2019-05-15 01:30 | NUR ---
IN TO REASSESS CENTRAL LINE AFTER ALTEPLASE. WHITE LUMEN NOW WITH BRISK BLOOD RETURN AND FLUSHES WELL.
--- NOTE | 2019-05-15 04:06 | NUR ---
PT UP TO BR WITH FWW AND TWO PERSON ASSIST TO HAVE LOOSE BM AND VOID. HARESH CARE DONE. BARRIER CREAM AND NEW ATTENDS IN PLACE. BACK TO BED, MARSHA FAIR. INCREASED RR AND FATIGUE WITH AMBULATION. NO OTHER REQUESTS AT THIS TIME. CALL LIGHT IN REACH.
--- NOTE | 2019-05-15 05:04 | NUR ---
PT RESTED WELL THROUGH THE NIGHT. AT TIMES CAN BE TWO PERSON ASSIST WITH FWW. INCREASED SOB AND WEAKNESS WITH ACTIVITY. NO PAIN OR NAUSEA. RA. TUBE FEED PER ORDER, FLUSHED WITH TAP WATER Q8 HOURS. CENTRAL LINE IN PLACE. TPN IN BROWN, DISTAL LUMEN. ALTEPLASE NEEDED IN WHITE LUMEN LAST NOC, BRISK BLOOD RETURN NOW. ELSIE DRAINING SEROUS FLUID. MIDLINE INCISION WNL. PITTING EDEMA IN BILAT LE.
--- NOTE | 2019-05-15 05:06 | NUR ---
PATIENTS VITALS TAKEN AND RECORDED. PATIENTS INTAKE AND OUPUT RECORDED. PATIENT DENIES ANY PAIN OR NAUSEA. NO NEEDS NOTED. TPN INFUSING PER ORDER. TUBE FEEDING INFUSING PER ORDER. CALL LIGHT IN REACH.
--- NOTE | 2019-05-15 07:24 | NUR ---
BEDSIDE REPORT RECEIVED PT RESTING EYES CLOSED APPEARS COMFORTABLE
--- NOTE | 2019-05-15 07:55 | NUR ---
PATIENT RESTING IN BED. PATIENT GOES TO USE BATHROOM. PATIENT USES WALKER. TWO PERSON ASSISTING. PATIENT ATTEND CHANGED. PATIENT BACKS TO BED. WARM BLANKET PROVIDED. PATIENT REFUSED ORDER BREAKFAST. CALL LIGHT WITHIN REACH. NO OTHER NEEDS AT THIS TIME
--- NOTE | 2019-05-15 07:57 | NUR ---
PATIENT UP TO BATHROOM TO VOID WITH 2 PERSON ASSIST, PATIENT REFUSED TO SIT UP IN CHAIR.
--- NOTE | 2019-05-15 09:56 | NUR ---
STUDENT RN OBTAINED THE FOLLOWING VITAL SIGNS AND I&O
--- NOTE | 2019-05-15 10:00 | NUR ---
PT REMAINS RESTING IN BED, APPEARS MORE VERBALLY INTERACTIVE TO THIS PUMP OPERATOR TODAY THAN LAST. DAUGHTER IS IN THE ROOM. PT DENIES ANY NAUSEA REPORTS SHE IS TOLERATING THE TUBE FEEDING WELL. NO C/O PAIN OR OTHER. FRESH H20 AT BEDSIDE, PT ENCOURAGED TO MAKE ANY PO NEEDS KNOWN. SHE HAS REFUSED ALL OFFERS OF FOOD AND DRINK ITEMS.
--- NOTE | 2019-05-15 11:57 | NUR ---
pt continues resting in bed refuses offers of ambulation or up to chair. denies pain or nausea. fresh h20 at bedside family remain in the room
--- NOTE | 2019-05-15 12:57 | NUR ---
PATIENT FEELING ABDOMINAL FULLNESS, WANTED TUBE FEEDING STOPPED, ENDORSED FEELING NAUSEATED. NO RESIDUAL VOLUME ASPIRATED. ENCOURAGED PATIENT TO SIT UP, PATIENT DENIES BEING ABLE TO TOLERATE SITTING UP.
--- NOTE | 2019-05-15 13:52 | NUR ---
PATIENT RECEIVING 2 L TPN PROVIDING AN AVERAGE OF 2,188 CALORIES DAILY. PATIENT ALSO RECEIVING PEG FEEDINGS USING VITAL 1.5 FORMULA CURRENTLY AT 30 ML/HOUR PROVIDING 1,080 CALORIES AND 48 GRAMS OF PROTEIN. WILL SEE IF PATIENT CAN TOLERATE 45 OR 60 ML OF CONTINUOUS FEEDS. SHE IS NOT EATING ANYTHING BY MOUTH SO FAR. A RATE OF 45 ML/HR WILL PROVIDE 1,620 CALORIES AND 73 GRAMS OF PROTEIN. A RATE OF 60 ML/HR WILL PROVIDE 2,160 CALORIES AND 97 GRAMS OF PROTEIN WHICH WILL BETTER MEET HER NUTRITION NEEDS. WILL CONTINUE TO FOLLOW.
--- NOTE | 2019-05-15 14:08 | NUR ---
PATIENT IN BED RESTING, FAMILY IN ROOM. WARM BLANKETS GIVEN. CALL LIGHT IN REACH. NO FURTHER NEEDS AT THIS TIME.
--- NOTE | 2019-05-15 14:19 | NUR ---
PT RESTING IN BED DENIES DISCOMFORTS TUBE FEEDING RESTARTED AT 30ML/HR
--- NOTE | 2019-05-15 14:38 | NUR ---
PT LAYING IN BED, WATCHING TV AND VISITING WITH DAUGHTER LORENZA.PT JOKED SOME, HAD GOOD VISIT. ENCOURAGED HER TO JUST WORK ON TODAY, AND HAD PRAYER WITH PT AND MAL AT PTS' REQUEST. WILL CONTINUE TO FOLLOW NEEDED
--- NOTE | 2019-05-15 15:39 | NUR ---
DR REES IN TO SEE PT, ELSIE DRAIN DC'D, WELL TOLERATED BY PT. DR REES INSTRUCTS INCREASE OF TUBE FEED RATE TO 45 ML/HR. DAUGHTER PRESENT FOR CONVERSATION
--- NOTE | 2019-05-15 17:40 | NUR ---
PT UP TO TOILET HARESH CARE PROVIDED, TINY OPEN AREA ON BOTTOM WASHED WELL BARRIER APPLIED. PT RETURNS TO BED DAUGHTER REMAINS IN ROOM
--- NOTE | 2019-05-15 17:52 | NUR ---
PATIENT RESTING IN BED. DAUGHTER IN ROOM. VITAL SIGNS AND I&O DONE. CALL LIGHT WITHIN REACH. NO OTHER NEEDS AT THIS TIME
--- NOTE | 2019-05-15 19:25 | NUR ---
RECEIVED REPORT FROM DAY SHIFT RN. PATIENT IS RESTING IN BED WITH EYES CLOSED, RR 16. CALL LIGHT IN REACH.
--- NOTE | 2019-05-15 21:09 | NUR ---
ROUNDED CHARGE. PATIENT IS RESTING IN BED WITH EYES CLOSED, RR 16. CALL LIGHT IN REACH. JENNY IS PRESENT IN THE ROOM. NO FURTHER NEEDS NOTED. CALL LIGHT IN REACH.
--- NOTE | 2019-05-15 21:40 | NUR ---
PT UP TO BR WITH FWW AND SBA. BLOODY TINGED STOOL NOTED IN THE TOILET. ASSESSED FOR HEMORRHOIDS OR OTHER OPEN AREAS, NONE NOTED. SECOND HAT PUT IN TOILET TO CATCH AND GUAIAC NEXT BM. ANIMAL LABORATORY HELPER AWARE. PT BACK TO BED WITH TWO PERSON ASSIST, MARSHA FAIR. INCREASED SOB AND FATIGUE WITH AMBULATION. VS WITHIN PT'S NORMAL RANGE. PT DENIES NAUSEA OR PAIN. ATTEMPTED TO RAISE HOB TO 30 DEGREES, PT REFUSED. CENTRAL LINE FLUSHED PER ORDER, BLUE LUMEN WITHOUT BLOOD RETURN. WILL FOLLOW PROTOCOL. ASSESSMENT COMPLETE. PM MEDS GIVEN WITHOUT ISSUE. TPN AND LIPIDS INFUSING PER ORDER. TUBE FEED AT 45 ML/HR. NO OTHER REQUESTS AT THIS TIME. CALL LIGHT IN REACH.
--- NOTE | 2019-05-16 00:12 | NUR ---
PT RESTING IN BED WITH EYES CLOSED. TPN, LIPIDS, AND TUBE FEED INFUSING PER MD ORDER. CALL LIGHT IN REACH.
--- NOTE | 2019-05-16 01:38 | NUR ---
CALL LIGHT ANSWERED. PT UP TO BR WITH FWW AND 2 PA. STOOL HEME TEST POSITIVE. PT BACK TO BED, MARSHA FAIR. UNABLE TO TOLERATE ELEVATED. DENIES PAIN OR NAUSEA. NO OTHER NEEDS AT THIS TIME. CALL LIGHT IN REACH.
--- NOTE | 2019-05-16 04:05 | NUR ---
IV PUMP ALARMING, LIPID INFUSION COMPLETE. PT CONTINUES TO REST IN BED WITH EYES CLOSED, NAD.
--- NOTE | 2019-05-16 05:17 | NUR ---
PT RESTED MOST OF THE NIGHT. USES CALL LIGHT APPROPRIATELY. 2 PA WITH FWW. TPN INFUSING AT 83 ML/HR, LIPIDS COMPLETE AT 0400. TUBE FEEDING AT 45 ML/HR, FLUSH Q 8 HOURS. CENTRAL LINE, BLUE LUMEN WITHOUT BLOOD RETURN. TPN IN DISTAL, BROWN LUMEN. MIDLINE INCISION WELL APPROXIMATED, STERI STRIPS CDI. OLD ELSIE SITE OPEN TO AIR, NO DRAINAGE. INCREASED SOB WITH ACTIVITY, LUNGS CLEAR. RA. ONE BOUT OF BLOODY STOOL LAST NOC, HEME TEST NEGATIVE. PT DENIES PAIN OR NAUSEA.
--- NOTE | 2019-05-16 07:10 | NUR ---
REPORT RECEIVED FROM JOHN LINN. PT RESTING IN BED WITH EYES CLOSED. RESPIRIATIONS EVEN AND UNLABORED. [place] PUMP ALARMING, [place] CALLED FOR ADDITIONAL VITAL 1.5 TO BE SENT UP. PUMP SILENCED AT THIS TIME. TPN INFUSING. PT ALLOWED TO REST. CALL LIGHT WITHN REACH.
--- NOTE | 2019-05-16 08:15 | NUR ---
MORNING ASSESSMENT AND MEDICATIONS DUE. THIS RN TO ROOM. PT VOMITING. 100ML YELLOW/FREED EMESIS NOTED. PEG TUBE FEEDING STOPPED. RESIDUALS IN PEG TUBE CHECKED, 100ML NOTED. VOMITING STOPPS WITH REMOVAL OF RESIDUALS. UNABLE TO RETURN STOMACH CONTENTS PT BEGINS VOMITING AGAIN. MD CALLED. ORDERS FOR PHENEGRAN. ORDERS TO LEAVE 100ML RESIDUAL OUT OF STOMACH. 100ML GASTRIC CONTENTS DISPOSED OF. CENTRAL LINE ASSESSED, NO BLOOD RETURN FROM BLUE LUMEN. ORDERS FOR ALTEPLASE PLACED. PHENGRAN GIVEN THROUGH WHITE LUMEN, WHITE LUMEN FLUSHED AND HEPARIN LOCKED PER PROTOCOL. BLOOD RETURN NOTED FROM BROWN LUMEN, TPN CONTINUES TO INFUSE THROUGH BROWN LUMEN. ASSESSMENT DONE. CRACKELS NOTED IN LOWER LOBES OF LUNG. PT UP TO RESTROOM. RR INCREASES TO 32BPM. PT VERY SHORT OF BREATH, UNABLE TO SPEAK WHILE AMBULATING. TWO WORD SENTENCES FOR 5 MINUTES UPON REUTRN TO BED. AFTER RECOVEREY, RR REUTRNS TO 20BPM WITH O2 SATURATION OF 93% ON ROOM AIR, OCCATIONAL COUGH NOTED. I.S. USE DEMONSTRATED REACHING 750ML. PLAN OF CARE DISCUSSED WITH PT. PT STATES "I JUST WANT TO DO WHATEVER IT TAKES TO GET STRONGER BUT I WANT TO STOP THE FEEDINGS, THEY MAKE THINGS WORSE." PITTING EDEMA CONTINUES. HYPOACTIVE BOWEL TONES. MEDICATIONS GIVEN. PT RESTING IN BED. FAMILY ARRIVES AND AT BEDSIDE. NO ADDITIONAL REQUESTS OR COMPLAINTS AT THIS TIME. CALL LIGHT WITHIN REACH.
--- NOTE | 2019-05-16 09:40 | NUR ---
THIS RN TO ROOM TO CHECK ON PT. PT RESTING WITH EYES CLOSED. FAMILY AT BEDSIDE. RESPIRATIONS EVEN AND UNLABORED. PT ALLOWED TO REST. CALL LIGHT WITHIN REACH.
--- NOTE | 2019-05-16 10:42 | NUR ---
THIS RN TO ROOM TO CHECK ON PT. PT RESTING WITH EYES CLOSED, DAUGHTER HOLDING PTS HAND. RR = 20BPM. PT REPORTS NO ADDITIONAL NAUSEA AT THIS TIME. NO REQUESTS OR COMPLAINTS. BED RAILS UP. CALL LIGHT WITHIN REACH.
--- NOTE | 2019-05-16 11:40 | NUR ---
NOON ASSESSMENT DUE. PT RESTING WITH EYES CLOSED, RR = 24BPM, EVEN AND UNLABORED. ASSESSMENT UNCHANGED FROM THIS MORNING. FAMILY REPORTS PT IS "SLEEPING MORE AND MORE. SHE HASN'T BEEN UP TO THE BATHROOM ALL MORNING. PT AWAKENS TO LIGHT TOUCH AND VOICE. PT DENIES PAIN AND NAUSEA. 2PA, FWW UP TO RESTROOM. PT TACHYPENIC AND SOB WITH AMBULATION. APPROXIMATLY 5-8MINUTES FOR RESPIRATIONS TO CALM AFTER GETTING BACK TO BED. LINENS CHANGED. DEPENDS CHANGED, HARESH CARE DONE, BARRIER CREAM APPLIED. NO BLOOD RETURN CONTINUES FROM BLUE LUMEN OF CENTRAL LINE. ALTEPLASE INFUSED PER PACKAGE INSERT INSTRUCTIONS. NO ADDITIONAL REQUESTS OR COMPLAINTS AT THIS TIME. TEMPERATURE TAKEN PER FAMILY REQUEST = 97.9. NO ADDITIONAL REQUESTS OR COMPLAINTS AT THIS TIME. CALL LIGHT WITHIN REACH. FAMILY AT BEDSIDE.
--- NOTE | 2019-05-16 12:08 | NUR ---
BLUE LUMEN ASSESSED FOR BLOOD RETURN PER ALTEPLASE PACKAGE INCERT INSTRUCTIONS. NO BLOOD RETURN NOTED. ALTEPLASE REMAINS IN LINE FOR ADDITIONAL 1.5 HOURS. PT RESTING WITH EYES CLOSED. RR = 24. CALL LIGHT WITHIN REACH.
--- NOTE | 2019-05-16 13:30 | NUR ---
ALTEPLASE TIME ELAPSED. BLUE LUMEN OF CENTAL LINE ASSESSED, BRISK BLOOD RETURN NOTED. LINE FLUSHED AND HEPARIN LOCKED PER PROTOCOL. ALCOHOL CAP APPLIED. PT ENCORUAGED TO SHOWER. 2PA UP TO SHOWER CHAIR. THIS RN ASSISTED PT WITH SHOWER, MODERATE ASSIST, PT ABLE TO HOLD SHOWER WAND AND ASSIST WITH SOME CARES. SOB AND TACHYPENA NOTED. SH[place]OO, HARESH CARE, SKIN CARE DONE. BARRIER CREAM APPLIED. LOTTION PROVIDED TO FAMILY. LINENS CHANGED. PT BACK TO BED. HAIR COMBED, MODERATE AMOUNT OF HAIR LOSS NOTED. SLOPE HOIST OPERATOR TO BEDSIDE, VITALS TAKEN. PT RESTING IN BED. BED RAILS UP. CALL LIGHT WITHIN REACH. FAMILY BACK TO BEDSIDE.
--- NOTE | 2019-05-16 14:32 | NUR ---
PT HAD JUST SHOWERED AND HAD FALLEN ASLEEP. HER RN MARY REQUESTED I NOT DISTURB PT. HER FAMILY CAME AND I VISITED WITH THEM. YOU CAN TELL THAT THEY SENSE A POSSIBLE MAJOR CHANGE IN PT'S CARE PLAN IS IMMINENT. GAVE THEM BOTH ENCOURAGEMENT AND WILL FOLLOW NEEDED
--- NOTE | 2019-05-16 14:47 | NUR ---
HANDOFF REPORT RECEIVED FROM JOHN HERNANDEZ. PT RESTING IN BED, FAMILY AT BEDSIDE. PT DENIES NAUESEA AT THIS TIME. PT DENIES OTHER NEEDS.
--- NOTE | 2019-05-16 14:47 | NUR ---
REPORT GIVEN TO JOHN WOODALL, WHO IS ASSUMING CARE OF PT. QUESTIONS ASKED AND ANSWERED.
--- NOTE | 2019-05-16 16:20 | NUR ---
TPN INFSING PER ORDER, DOUBLE RN VERIFICATION OF TPN AND ORDER WITH JOHN HEATON. LAB DRAEN VIA CENTRAL LINE, FLUSHED AND HEPARIN LOCKED. PT DENIES NEEDS AT THIS TIME.
--- NOTE | 2019-05-16 17:30 | NUR ---
PT RESTING IN BED, FAMILY AT BEDSIDE. PT ON ROOMA IR, O2 SATS 91-93%, LUNG SOUNDS WITH CRACKLES IN THE BASES. BOWEL TONES HYPOACTIVE, PEQ TUBE CLAMPED, PT DENIES NAUSEA. PT WITH 3+ EDEMA IN ALL EXTREMITIES, PULSES PALPBLE, CMS INTACT. LEFT CENTRAL LINE DRESSING INTACT, TPN INFUSING. PT DENIES OTHER NEEDS AT THIS TIME.
--- NOTE | 2019-05-16 18:33 | NUR ---
DAUGHTER ASKING ABOUT SMALL BOWEL FOLLOW THROUGH TOMORROW, WANTING TO KNOW WHAT TIME STUDY WOULD BE DONE TO BE AVAILABLE. IMAGING CALLED, THEY ARE UNABLE TO SEE THE ORDER, ORDER REENTERED, IMAGING SUGGESTS FAMILY BE AVAILABLE AT 0630 FOR STUDY AT 0800, DAUGHTER NOTIFIED. PT SLEEPING IN BED, LEFT UNDISTURBED.
--- NOTE | 2019-05-16 19:25 | NUR ---
SHIFT REPORT RECEIVED FROM [facility] JOHN WOODALL AT BEDSIDE. PT RESTING IN BED, EYES CLOSED. RR WNL, FAMILY IN ROOM. CALL LIGHT IN REACH. TPN INFUSING PER MD ORDERS.
--- NOTE | 2019-05-16 22:30 | NUR ---
ASSESSMENT COMPLETE, SCHEDULED MEDICATIONS GIVEN (SEE EMAR). VSS, PT ON RA. DENIES PAIN. TPN INFUSING IN DISTAL LUMEN. NO BLOOD RETURN NOTED TO DISTAL AND MEDIAL LUMEN. HEAD TURNED TO RIGHT, COUGHING ENCOURAGED, LEFT ARM IN AIR. ALL TACTICS UNSUCCESSFUL. BLOOD RETURN NOTED TO PROXIMAL LINE. SECOND RN MENDEZ IN ROOM TO ASSESS SITE, BLOOD RETURN REMAINS UNSUCCESSFUL. FRY COOK MADE AWARE, WILL CALL SUPPLY CHAIN DESIGN MANAGER. TO EVALUATE. PT DENIES ADITIONAL NEEDS, CALL LIGHT IN REACH.
--- NOTE | 2019-05-16 23:00 | NUR ---
EQUIPMENT INSTALLER SONAM IN ROOM TO ASSESS LUMEN PATENCY. MEDIAL AND DISTAL LUMENS FLUSH EASILY, NO SWELLING NOTED, BUT NO BLOOD RETURN NOTED. LEFT ARM RAISED, HEAD TURNED TO THE RIGHT, PT COUGHED. ALL TECHNIQUES UNSUCCESSFULL. HARVEST FIELD TICKETER UPDATED, WILL NOTIFY DR REES.
--- NOTE | 2019-05-16 23:30 | NUR ---
DR REES CALLED REGARDING NO BLOOD RETURN TO MEDIAL AND DISTAL LUMENS. CLARIFICATION ASKED DUE TO MULTIPLE LUMENS WITH NO BLOOD RETURN. PER DR REES, USE ALREADY SECOND DOSE OF STANDING ALTEPLASE FOR MEDIAL LUMEN. IF BLOOD RETURN UNSUCCESSFUL AFTER 120 MINUTES. WAIT UNTIL MORNING AND MD WILL EVALUATE SITE. PER DR REES, OKAY TO CONTINUE USING TPN FOR DISTAL LUMEN WITHOUT BLOOD RETURN. SPICE CLEANER SONAM IN ROOM, ALTEPLASE ADMINISTERED PER INSTRUCTION PACKAGING. WILL MONITOR. CALL LIGHT IN REACH.
--- NOTE | 2019-05-17 00:10 | NUR ---
PT MADE NPO FOR SCHEDULED SMALL BOWEL FOLLOW THROUGH. DOCUMENT REVIEW ATTORNEY AWARE.
--- NOTE | 2019-05-17 00:52 | NUR ---
ATTEMPT TO ASPIRATE BLOOD RETURN TO MEDIAL LUMEN, UNSUCCESSFUL. WILL REEVALUATE AFTER THE COMPLETE 2HR TIME LINE. CALL LIGHT IN REACH.
--- NOTE | 2019-05-17 02:00 | NUR ---
BLOOD RETURN NOTED TO MEDIAL LUMEN. ALTEPLASE REMOVED PER HOSPITAL POLICY, 5-6MLS WASTED. FLUSHED WITH 20MLS SALINE, AND HEP LOCKED. TPN INFUSING IN DISTAL LUMEN PER MD ORDERS. SITE WNL. ASSESSMENT COMPLETE, NO NEW CONCERNS. PT DENIES PAIN, HOB ELEVATED. FEEDING TUBE CONTENTS NOTED IN PEG TUBE, FLUSHED WITH 40MLS TAP WATER, CLAMPED. PT DENIES FURTHER NEEDS, CALL LIGHT IN REACH.
--- NOTE | 2019-05-17 04:56 | NUR ---
SPOKE TO ASRAH FROM IMAGING REGARDING PT'S 0800 SCHEDULED SBFT. PER SARAH, IMAGING WILL COMPLETE ALL ASPECTS OF SBFT. SARAH MADE AWARE THAT CONTENTS FOR SBFT CAN BE ADMINISTERED VIA PEG TUBE INSTEAD OF ORALLY PER DR REES PT HAS LOW ORAL INTAKE/TOLERANCE.
--- NOTE | 2019-05-17 06:32 | NUR ---
BLOOD DRAW COMPLETED FROM PROXIMAL LUMEN. SALINE FLUSHED AND HEP LOCKED PER POLICY. VSS AND I&O'S COMPLETED. NO FURTHER NEEDS, FAMILY IN ROOM. CALL LIGHT IN REACH.
--- NOTE | 2019-05-17 08:00 | NUR ---
SPOKE WITH RADIALOGY. STATED THEY WILL BE CONSULTING WITH DR MIRANDA BEFORE PROCEDING WITH SMALL BOWEL FOLLOW THRU THIS AM. PT REMAINS NPO, DENIES PAIN OR NAUSEA THIS AM. TWO PERSON ASSIST TO AMBULATE USING FWW INTO BATHROOM TO VOID, FATIGUES QUICKLY. 3-4+ EDEMA GENERALYZED FULL BODY. DAUGHTER AND SON IN ROOM.
--- NOTE | 2019-05-17 10:10 | NUR ---
NOTED ORDER FROM RADIOLOGY TO GIVE 15ML CONTRAST PO AT THIS TIMEAND PT WILL NOW HAVE CT IN ONE HOUR. SPOKE WITH RADIOLOGY PT IS REFUSING ANYTHING PO. SHE ASKED I CALL DR REES.
--- NOTE | 2019-05-17 10:20 | NUR ---
I CALLED DR REES AND HE STATED I SHOULD GIVE CONTRAST VIA GT MUCH PT CAN TOLERATE. I SPOKE WITH RADIOLOGY- GABE AND INFORMED HER OF INSTRUCTIONS FROM DR REES. STATED SHE WOULD ALSO NEED TO DRINK A 2ND 16OZ OF CONTRAST. I WAS ABLE TO GIVE 20ML OF CONTRAST VIA GT AT THIS TIME [place] PT TOLD ME TO STOP. I WILL ATTEMPT AGAIN IN 15 MIN. DAUGHTER AND SON ARE AT BEDSIDE AND ENCOURAGING PT WELL.
--- NOTE | 2019-05-17 10:30 | NUR ---
STATES SHE IS UNABLE TO TOLERATE MORE CONTRAST YET, NO NAUSEA, STATES SHE JUST FEELS A LOT OF PRESSURE CLEAR UP TO HER THROAT. WILL ATTEMPT AGAIN IN 10 MIN.
--- NOTE | 2019-05-17 10:40 | NUR ---
AGAIN REFUSED CONTRAST."TO FULL."
--- NOTE | 2019-05-17 10:50 | NUR ---
REFUSED CONTRAST "TO FULL."
--- NOTE | 2019-05-17 11:00 | NUR ---
DR REES IN TO SEE PT AND SPEAK WITH FAMILY. PT AGAIN STATES SHE CAN NOT TAKE ANY MORE CONTRAST YET, STATES ITS TO PAINFUL. DR REES ASKS I JUST CONT. TO OFFER CONTRAST IN SMALL AMOUNTS OFTEN PT CAN TOLERATE. DAUGHTER AND SON IN ROOM, STATES THEY UNDERSTAND PLAN.
--- NOTE | 2019-05-17 11:15 | NUR ---
PT STATES "PRESSURE IS BEGINNING TO LET UP, BUT NOT READY FOR CONTRAST YET."
--- NOTE | 2019-05-17 12:00 | NUR ---
PT RESTING IN BED WITH EYES CLOSED, STATES SHE DOES NOT THINK SHE CAN TAKE ANYMORE CONTRAST. JUST WANTS TO REST FOR A BIT. WILL TRY AGAIN IN 30 MIN TO GIVE CONTRAST.
--- NOTE | 2019-05-17 12:16 | NUR ---
PATIENT NAUSEATED, RETCHING, EVENTUALLY NAUSEA SETTLED DOWN. PATIENT REFUSED TO HAVE ANY MORE ORAL CONTRAST IN PEG TUBE. PLAN TO NOTIFY DR. REES. DR. REES INDICATED TO HAVE THE CT DONE WITHOUT CONTRAST.
--- NOTE | 2019-05-17 13:04 | NUR ---
PT RESTING IN BED-FAMILY AT BS. PT OPENS EYES AT SOUND OF VOICE. FAMILY AT BS. HAD GOOD VISIT, WILL CONTINUE TO FOLLOW
--- NOTE | 2019-05-17 13:20 | NUR ---
TO RADIOLOGY VIA BED FOR SCHEDULED CT.
--- NOTE | 2019-05-17 13:45 | NUR ---
RETURNED TO ROOM, TWO PERSON ASSIST TO AMBULATE INTO BATHROOM TO VOID.FATIGUES QUICKLY. CONT. TO DENY ANY PAIN BUT C/O FULLNESS IN ABD. VISITORS IN ROOM.
--- NOTE | 2019-05-17 14:36 | NUR ---
Spoke with Dr. Freitas and requested he speak with family about hospice. He is waiting for further testing today.
--- NOTE | 2019-05-17 17:31 | NUR ---
Jay from [facility] here to see pt in ER. Asked Candelaria's daughter if she is interested in information from Hospice. She would like infor, but does not want Jay to speak with her mom. Had Mal go the the CCU waiting room and Jay spoke with and provided information for hospice.
--- NOTE | 2019-05-17 18:11 | NUR ---
PT UNABLE TO TOLERATE ANYTHING VIA GT. BOWEL FOLLOW THRU CANCELLED AND CT WITHOUT CONTRAST DONE. PT WITH INCREASING GENERALYZED EDEMA. ABLE TO AMBULATE INTO BATHROOM TO VOID WITH 2 PERSON ASSIST. INCREASING WEAKNESS AND SOB WITH EXHERTION. TPN/LIPIDS INFUSING.
--- NOTE | 2019-05-17 19:00 | NUR ---
SHIFT REPORT RECEIVED FROM VEE RICHTER AT BEDSIDE. PT AWAKE AND VISITNG WITH FAMILY IN ROOM. TPN AND LIPIDS INFUSING PER MD ORDERS, CENTRAL LINE DRESSING INTACT. PT DENIES NEEDS, CALL LIGHT IN REACH.
--- NOTE | 2019-05-17 19:20 | NUR ---
PATIENT HAD A LOT OF COMPANY TODAY AND ALSO SHE WAS VERY TIRED TO TAKE A SHOWER TODAY. SHE DID GET ONE YESTERDAY.
--- NOTE | 2019-05-17 21:15 | NUR ---
ASSESSMENT COMPLETE, SCHEDULED MEDICATIONS GIVEN. PO PEPCID HELD PER PT REQUEST. VSS, PT ON RA. DENIES PAIN OR NAUSEA. BOWEL TONES HYPOACTIVE, PEG FEEDING TUBE IN PLACE AND CLAMPED. HOB REMAINS ELEVATED. TPN AND LIPDS INFUSING PER MD ORDERS, CENTRAL LINE DRESSING INTACT. GENERALIZED 3+ EDEMA NOTED TO BUE AND BLE. LUNG SOUNDS CLEAR WHEN PT SITTING ON EDGE OF BED, NO CRACKLES NOTED AT THIS TIME. WILL MONITOR. NO FURTHER NEEDS, CALL LIGHT IN REACH.
--- NOTE | 2019-05-17 22:30 | NUR ---
TPN AND LIPIDS INFUSING PER MD ORDERS, CENTERAL LINE DRESSING INTACT. PROXIMAL AND MEDIAL LUMEN FLUSHED, BLOOD RETURN NOTED. HEP LOCKED PER POLICY. PT DENIES ADDITIONAL NEEDS, CALL LIGHT IN REACH.
--- NOTE | 2019-05-17 23:34 | NUR ---
INTERMITTENT COUGHING HEARD FROM NURSE'S STATION, THIS RN IN ROOM TO ASSESS PT. HOB ELEVATED FOR SAFETY. NO EMESIS NOTED IN EMESIS BAD. AFTER A FEW MINUTES, PT STATES, "I'M FEELING BETTER". DENIES FURTHER NEEDS, HOB REMAINS ELEVATED. CALL LIGHT IN REACH.
--- NOTE | 2019-05-18 01:30 | NUR ---
PT RESTING IN BED, EYES CLOSED. NO DISTRESS NOTED, PT APPEARS COMFORTABLE. NO SIGNS OF PAIN. HOB REMAINS ELEVATED. CALL LIGHT IN REACH.
--- NOTE | 2019-05-18 01:45 | NUR ---
PT HAD THE SBFT ON DAYSHIFT, DIET UPDATED AND RETURNED TO REGULAR.
--- NOTE | 2019-05-18 04:30 | NUR ---
IV PUMP GOING OFF, LIPIDS COMPLETE. TPN REMAINS REFUSING PER MD ORDERS, CENTRAL LINE DRESSING INTACT. PT VERBALIZES NEED TO VOID. 2PA WITH FWW. BM X1 AND INCONTINENT OF URINE. NO NEW CHANGES OR CONCERNS. DENIES PAIN. REINFORCED CONCRETE INSPECTOR OCTOBER IN ROOM TO COLLECT VS. CALL LIGHT IN REACH, HOB ELEVATED.
--- NOTE | 2019-05-18 04:38 | NUR ---
VITALS AND I&OS DONE AND CHARTED. WITH THE HELP OF JOHN LAURENT WE HELPED HER TO THE BATHROOM AND BACK TO BED WITH HER FWW. FRESH ICE WATER GIVEN. BEDSIDE TABLE AND CALL LIGHT IN REACH.
--- NOTE | 2019-05-18 05:26 | NUR ---
PT HAD UNEVENTFUL NIGHT, VSS. DENIED PAIN ALL SHIFT. 2PA WITH FWW, USES CALL LIGHT APPROPERIATELY. TIRES EASILY. TPN INFUSING IN DISTAL LUMEN, CENTRAL LINE DRESSING INTACT. REGULAR DIET, LOW APPETITE, HYPOACTIVE BOWEL TONES. PEG TUBE IN PLACE, CLAMPED.
--- NOTE | 2019-05-18 06:30 | NUR ---
BLOOD DRAW COMPLETED THROUGH PROXIMAL LUMEN. FLUSHED WITH SALINE AND HEP LOCKED. NO FURTHER NEEDS, CALL LIGHT IN REACH.
--- NOTE | 2019-05-18 07:31 | NUR ---
BEDSIDE REPORT RECEIVED PT RESTING EYES CLOSED BREATHING EVEN AND UNLABORED.
--- NOTE | 2019-05-18 08:45 | NUR ---
PT RESTING IN BED DENIES PAIN OR NAUSEA. DAUGHTER IS PRESENT IN THE ROOM
--- NOTE | 2019-05-18 09:50 | NUR ---
PATIENT REQUESTED WARM BLANKET AND WAS UP TO THE BATHROOM, PATIENT DID NOT EAT ANY BREAKFAST
--- NOTE | 2019-05-18 11:50 | NUR ---
PATIENT RESTING IN BED, EYES CLOSED. FAMILY IN ROOM. CALL LIGHT IN REACH. NO OTHER NEEDS AT THIS TIME.
--- NOTE | 2019-05-18 13:12 | NUR ---
PATIENT RESTING IN BED, FAMILY IN ROOM. CALL LIGHT IN REACH. NO OTHER NEEDS AT THIS TIME.
--- NOTE | 2019-05-18 13:35 | NUR ---
PT FAMILY TO NURSES STATION STATING PT NEEDS ASSISTANCE WITH TOILETING. 2PA UP TO RESTROOM, FWW. LINENS CHANGED. PT BACK TO BED. NO ADDITIONAL REQUESTS OR COMPLAINTS AT THIS TIME. FAMILY AT BEDSIDE.
--- NOTE | 2019-05-18 13:39 | NUR ---
DR REES IN TO SEE PT, DAUGHTER IS PRESENT. DISCUSSED FAILURE OF TREATMENT AND POSSIBILITY OF USING HOSPICE SERVICES PLANS TO LEAVE HOSPITAL POSSIBLY TO DT'S HOME FOR ASSISTANCE. CONVERSATION APPEARED WELL TOLERATED. FAMILY MEMBERS TO ALL MEET LATER TO DISCUSS PLANS GOING FORWARD.
--- NOTE | 2019-05-18 13:59 | NUR ---
FAMILY IS REQUESTING [facility] TO FOLLOW PT. CALL PLACED TO [facility] [phone] AND SPOKE WITH TEAM ASSEMBLER NURSE SARAH. STATES AN INTAKE NURSE NAMED ROSHAN WILL CALL ME BACK FOR INTAKE INFORMATION.
--- NOTE | 2019-05-18 16:49 | NUR ---
PT FAMILY CAME IN TO DISCUSS PT CONDITION WITH HER AND PLAN GOING FORWARD. CONVERSATION APPEARED TO GO WELL PT UNDERSTANDS SHE WILL BE GOING TO DAUGHTERS HOME AND HOSPICE WILL COME IN TO ASSIST
--- NOTE | 2019-05-18 18:18 | NUR ---
PATIENT RESTING IN BED.DAUGHTER AND IN ROOM. VITAL SIGNS AND I&O DONE. CALL LIGHT WITHIN REACH. NO OTHER NEEDS AT THIS TIME
--- NOTE | 2019-05-18 19:20 | NUR ---
SHIFT REPORT RECEIVED FROM VEE THOMPSON AT BEDSIDE. PT AWAKE AND RESTING IN BED, FAMILY IN ROOM. IV FLUIDS INFUSING PER MD ORDERS, CENTRAL LINE DRESSING INTACT. HOB ELEVATED. PT IS COMFORTABLE, DENIES PAIN. CALL LIGHT IN REACH.
--- NOTE | 2019-05-18 22:15 | NUR ---
ASSESSMENT COMPLETE, SCHEDULED MEDS GIVEN (SEE EMAR). VSS, PT ON RA, DENIES PAIN. IV FLUIDS INFUSING PER MD ORDERS, CENTRAL LINE DRESSING INTACT. BLOOD RETURN NOTED TO ALL THREE LUMENS, UNUSED LUMENS FLUSHED WITH SALINE AND HEP LOCKED PER POLICY. PEG TUBE CLAMPED, BOWEL TONES HYPOACTIVE TO RARE. PT DENIES NAUSEA. NO FURTHER NEEDS, CALL LIGHT IN REACH.
--- NOTE | 2019-05-18 22:17 | NUR ---
ASST LOPEZ C/ VITALS, GAVE PT FRESH ICE WATER,
--- NOTE | 2019-05-19 00:57 | NUR ---
PT RESTING IN BED, EYES CLOSED, NO DISTRESS NOTED FROM PT. RESPIRATIONS EVEN AND UNLABORED. IV FLUIDS INFUSING PER MD ORDERS. CALL LIGHT IN REACH.
--- NOTE | 2019-05-19 02:15 | NUR ---
PT RESTING IN BED, EYES CLOSED. RR WNL, HOB ELEVATED. IV FLUIDS INFUSING PER MD ORDERS. CALL LIGHT IN REACH.
--- NOTE | 2019-05-19 03:26 | NUR ---
NEW BAG OF IV FLUIDS HUNG AND INFUSING PER MD ORDERS, SITE WNL. PT DENIES PAIN OR ADDITIONAL NEEDS, CALL LIGHT IN REACH.
--- NOTE | 2019-05-19 04:57 | NUR ---
VITALS AND I&OS DONE AND CHARTED. WITH THE HELP OF JOHN THAKUR WE HELPED PT TO THE BATHROOM AND BACK TO BED WITH HER FWW. BEDSIDE TABLE AND CALL LIGHT IN REACH. PT NEEDS NOTHING MORE AT THIS TIME.
--- NOTE | 2019-05-19 05:13 | NUR ---
ASSESSMENT COMPLETE, NO NEW CHANGES OR CONCERNS. PEG TUBE FLUSHED WITH 35-40MLS AND IS CLAMPED. PT DENIES PAIN. IV FLUIDS INFUSING PER MD ORDERS, CENTRAL LINE DRESSING INTACT. WARM BLANKET AND FRESH ICE WATER GIVEN, NO FURTHER NEEDS. CALL LIGHT IN REACH.
--- NOTE | 2019-05-19 05:26 | NUR ---
PT HAD UNEVENTFUL NIGHT, VSS. DENIED PAIN. 2PA WITH FWW, USES CALL LIGHT APPROPERIATELY. IV FLUIDS INFUSING THROUGH CENTRAL LINE, DRESSING INTACT. UNUSED LUMENS HEP LOCKED. PEG TUBE FLUSHED. NO NAUSEA THIS SHIFT, VOIDING QS. NO BM.
--- NOTE | 2019-05-19 09:30 | NUR ---
MORNING ASSESSMENT AND MEDICAITON DUE. MD CONSULTED. PT TRANSITIONED TO COMFORT MEASURES ONLY. THIS RN TO ROOM WITH MD FOR ROUNDS. FAMILY UPDATED. HOSPICE CONSULT EXPECTED TODAY. PT AND FAMILY VERBALIZE UNDERSTANDING OF COMFORT MEASURES. ASSESSMENT DONE. EDMEA CONTINUES. LUNG SOUNDS CLEAR AT THIS TIME, RESPIRATIONS EVEN AND UNLABORED. PEG TUBE EDUCATION DONE WITH PTS FAMILY. FAMILY DEMONSTARTES ABILITY TO FLUSH LINE. LINE FLUSHED WITH 50ML OF TAP WATER. NO GAUZE NOTED BETWEEN SKIN AND PEG TUBE LINE. GAUZE PLACED TO PROTECT SKIN. CENTRAL LINE ASSESSED, BLOOD RETURN NOTED ONLY FROM WHITE LUMEN. BROWN AND BLUE LUMENS HEPARIN LOCKED AT THIS TIME, WILL USE ALTEPLASE. WHITE LUMEN INFUSING IV FLUIDS. MEDICATIONS GIVEN. PT RESTING IN BED, WATCHING TV. FAMILY AT BEDSIDE. CALL LIGHT WITHIN REACH. WARM BLANKETS PROVIDED. NO ADDITIONAL REQUESTS OR COMPLAINTS AT THIS TIME.
--- NOTE | 2019-05-19 10:48 | NUR ---
PATIENT WENT TO THE RESTROOM. SHE IS NOW IN THE BED RESTING. FAMILY IN ROOM. WATER REFRESHED. CALL LIGHT IN REACH. NO FURTHER NEEDS AT THIS TIME.
--- NOTE | 2019-05-19 10:49 | NUR ---
THIS RN TO ROOM TO CHECK ON PT. PT REQUESTS MORE ICE IN WATER. ICE WATER REFRESHED, WARM BLANKET PROVIDED. COMFORT CARE TRAY ORDERED FOR ROOM. NO ADDITIONAL REQUESTS OR COMPLAINTS. CALL LIGHT WITHIN REACH.
--- NOTE | 2019-05-19 14:46 | NUR ---
THIS RN TO ROOM TO CHECK ON PT. PUMP ALARMING, IV FLUIDS COMPLETE. NEW BAG HUNG. 2PA UP TO RESTROOM. PT VOIDS WITHOUT ISSUE. PT BACK TO BED. DENIES PAIN AND NAUSEA. PT DECLINES SHOWER AT THIS TIME. NO ADDITIONAL REQUESTS OR COMPLAINTS AT THIS TIME. CALL LIGHT WITHIN REACH. FAMILY AT BEDSIDE.
--- NOTE | 2019-05-19 17:18 | NUR ---
ALTEPLASE PLACED INTO BROWN AND BLUE LUMENS PER PACKAGE INCERT INSTRUCTIONS. WHICH DEMONSTRATED NO BLOOD RETURN DURING AM ASSESSMENT. WILL EVALUATE AT 30 MIN PER PACKAGE INCERT INSTRUCTIONS. PT WATCHING TV. NO ADDITIONAL REQUESTS OR COMPLAINTS. CALL LIGHT WITHIN REACH.
--- NOTE | 2019-05-19 18:24 | NUR ---
BROWN AND BLUE LUMENS ASSESSED, FOR BLOOD RETURN. NO BLOOD RETURN NOTED FROM BROWN LUMEN. BLOOD RETURN NOTED FROM BLUE LUMEN. ALTEPLASE WITHDRAWN. LINE FLUSHED AND HEPARIN LOCKED PER PROTOCOL ALCOHOL CAP APPLIED. PT REPORTS OCCATIONAL DISCOMFORT AT PEG TUBE INCERTION SITE. TYELNOL OFFERED. PT DELCINES AT THIS TIME STATING "IT'S GONE RIGHT NOW." FAMILY AT BED SIDE. CALL LIGHT WITHIN REACH. NO ADDITIONAL REQUESTS OR COMPLAINTS AT THIS TIME. BROWN LUMEN LABELED TPA REMAINS IN LINE FOR ADDITONAL 1.5 HRS PER PACKAGE INCERT INSTRUCTIONS.
--- NOTE | 2019-05-19 18:35 | NUR ---
PT TRANSISTIONED TO COMFORT CARE THIS SHIFT. PRN MEDICATIONS AVALIABLE. HOPICE CONSULTATION PLACED. PTS FAMILY REPORTS THEY HAVE SPOKEN WITH HOSPICE. ALTEPLACE USED TO OBTAIN BLOOD RETURN FROM CENTRAL LINE THIS SHIFT. WHITE LUMEN INFUSING IV FLUIDS. PT REPORTS OCCATIONAL PAIN AT PEG TUBE INSERTION SITE, DENIES NEED FOR MEDICATION AT THIS TIME. NO NAUSEA THIS SHIFT. COMFORT TRAY PROVIDED FOR FAMILY. PT CONTINUES TO DENY OFFERES OF FOOD AND FLUID. GARCIA OFFERED FOR COMFORT. PT DENIES NEED, UP WITH 2PA TO RESTROOM. PT USES CALL LIGHT APPROPRIATLY. FAMILY AT BEDSIDE FOR MOST OF SHIFT.
--- NOTE | 2019-05-19 19:15 | NUR ---
SHIFT REPORT RECEIVED FROM DAYSHIFT JOHN HERNANDEZ AT BEDSIDE. PT AWAKE AND RESTING IN BED, FAMILY IN ROOM. PT EMOTIONAL REGARDING COMFORT CARE AND TRANSITION INTO HOSPICE. THERAPEUTIC COMMUNICATION PROVIDED BY THIS RN, JOHN HERNANDEZ, AND PT'S DAUGHTER. PT VERY APPRECIATIVE REGARDING CARE RECEIVED FROM NURSING STAFF. FRESH WATER AND WARM BLANKET PROVIDED, NO FURTHER NEEDS. CALL LIGHT IN REACH.
--- NOTE | 2019-05-19 20:45 | NUR ---
ASSESSMENT COMPLETE, SCHEDULED MEDS GIVEN (SEE EMAR). VSS, PT DENIES PAIN. FAMILY IN ROOM. 5MLS BLOOD ASPIRATED FROM BROWN LUMEN AND DISPOSED OF PER ALTEPLASE POLICY, SALINE FLUSHED, AND HEP LOCKED. BLOOD RETURN NOTED TO BLUE AND WHITE LUMEN. IV FLUIDS INFUSING PER MD ORDERS IN WHITE LUMEN. BLUE LUMEN FLUSHED AND HEP LOCKED. PEG TUBE CLAMPED AT THIS TIME. PT DENIES PAIN. NO FURTHER NEEDS, PT ON COMFORT CARE. CALL LIGHT IN REACH.
--- NOTE | 2019-05-19 20:54 | NUR ---
VITALS AND I&OS DONE AND CHARTED. HELPED PT TO THE BATHROOM AND BACK TO BED WITH HER FWW. BEDSIDE TABLE AND CALL LIGHT IN REACH. PT OR THE FAMILY NEED ANYTHING AT THIS TIME.
--- NOTE | 2019-05-19 21:39 | NUR ---
ROUNDED CHARGE. PATIENT AND AND FAMILY EXPRESS CONCERN ABOUT FUTURE PLANS OF HOPSICE. PATIENT AND FAMILIES QUESTIONS ANSWERED. PATIENT AND FAMILY DENY ANY OTHER COMMENTS, QUESTIONS, OR CONCERNS. NO FURTHER NEEDS NOTED. J-PEG VENTED TO LEG BAG.
--- NOTE | 2019-05-19 22:55 | NUR ---
PT EXPRESSIUNG PAIN AT PEG TUBE SITE, DENIES NAUSEA. REPORTS FEELING OF FULLNESS/NAUSEA RESOLVED AFTER VENT PLACED TO PEG TUBE BY SENIOR ACCOUNT DIRECTORJOHN RHODES. PRN TYLENOL ADMINSITERED PER PT REQUEST. NO FURTHER NEEDS, CALL LIGHT IN REACH.
--- NOTE | 2019-05-19 23:54 | NUR ---
PT RESTING IN BED, EYES CLOSED. RR WNL, NO DISTRESS NOTED. PT APPEARS COMFORTABLE. HOB ELEVATED. IV FLUIDS INFUSING PER MD ORDERS. CALL LIGHT IN REACH.
--- NOTE | 2019-05-20 00:21 | NUR ---
CALL LIGHT ANSWERED. 2PA W FWW TO RESTROOM FOR VOID AND LOOSE BM. pt BACK IN BED. ASSISTED TO REPOSITION. ICE WATER PROVIDED. CALL LIGHT IN REACH.
--- NOTE | 2019-05-20 00:54 | NUR ---
THIS RN IN ROOM TO ASSESS PT AFTER HEARDING COUGHING. HOB RAISED, PT IN MIDDLE OF COUGHING SPELL. EMESIS BAG PROVIDED, SMALL CLEAR PHLEGM NOTED. MOUGH RINSED, CAPSTICK APPLIED. FACE WASHED, HAIR BRUSHED FOR COMFORT. PT VISITING WITH NURSING STAFF. NO FURTHER NEEDS. CALL LIGHT IN REACH. HOB REMAINS ELEVATED.
--- NOTE | 2019-05-20 01:41 | NUR ---
NEW BAG OF IV FLUIDS INFUSING PER MD ORDERS, IV SITE WNL. CENTRAL LINE DRESSING INTACT. NO ADDITIONAL NEEDS, CALL LIGHT IN REACH.
--- NOTE | 2019-05-20 02:26 | NUR ---
PT UP 2PA WITH FWW TO VOID. BARRIER CREME APPLIED TO BUTTOCKS, NEW ATTENDS IN PLACE. PT DENIES ADDITIONAL NEEDS, BACK IN BED. IV FLUIDS INFUSING PER MD ORDERS, CENTRAL LINE DRESSING INTACT. NO PAIN AT THIS TIME. PEG TUBE TO GRAVITY DRAIN. CALL LIGHT IN REACH.
--- NOTE | 2019-05-20 04:46 | NUR ---
PT ON COMFORT MEASURES. VSS, IV FLUIDS INFUSING PER MD ORDERS, CENTRAL LINE DRESSING INTACT. UNUSED LUMENS HEP LOCKED PER POLICY. PAIN CONTROLLED WITH PRN TYLENOL. PEG TUBE DRAINING BY GRAVITY. COUGHING SPELL NOTED X1, SELF RESOLVED. NO NAUSEA. VERY LOW APETITE. 2PA WITH FWW, USES CALL LIGHT APPROPERAITELY.
--- NOTE | 2019-05-20 05:30 | NUR ---
I&O'S COLLECTED. PT RESTING IN BED, EYES CLOSED. RR WNL. NO DISTRESS NOTED, CALL LIGHT IN REACH. IV FLUIDS INFUSING PER MD ORDERS, CENTRAL LINE DRESSING INTACT.
--- NOTE | 2019-05-20 07:12 | NUR ---
REPORT RECEIVED FROM JOHN LAURENT. PT RESTING IN BED WITH EYES CLOSED. RESPIRATIONS EVEN AND UNLABORED. PEG TUBE DRAINING TO GRAVITY. IV FLUIDS INFUSING. BED RAILS UP. CALL LIGHT WITHIN REACH.
--- NOTE | 2019-05-20 08:00 | NUR ---
PATIENT RESTING IN BED WITH EYES CLOSED. PATIENT'S DAUGHTER IN ROOM. NO NEEDS AT THIS TIME.
--- NOTE | 2019-05-20 09:40 | NUR ---
MORNING ASSESSMENT AND MEDICAITON DUE. PT RESTING IN BED VISITING WITH FAMILY. PT DENIES PAIN AND NAUSEA AT THIS TIME. MID LINE INCISION INTACT, EDGES APPROXIMATED, STERI STRIPS SEMI INTACT. PEG TUBE ASSESSED, GAZUE IN PLACE. PEG TUBE FLUSHED BY GRAVITY WITH 50ML TAP WATER. TUEB CLAMPED AT THIS TIME. CENTRAL LINE ASSESSED, WNL. BRISK BLOOD RETURN NOTED FROM ALL THREE LUMENS. BLUE AND BROWN LUMENS HEPARIN LOCKED, WHITE LUMEN INFUSING IV FLUIDS. LUNG SOUNDS CLEAR. +3-4 PITTING EDEMA CONTINUES. PT EXPRESSES CONCERN ABOUT GOING HOME STATING "I JUST WANT SOMEONE TO BE THERE IF I NEED AND I'VE GOTTEN USED TO USING THE CALL LIGHT." THERAPUTIC COMMUNICATION DONE WITH PT REGARDING PLAN OF CARE, HOSPICE AND SERVICES OFFERED. PT CONTINUES TO AGREE TO HOSPICE CARE AT HOME. PT DECLINES GARCIA FOR COMFORT AT THIS TIME. PT DENIES ADDITIONAL REQUESTS OR COMPLAINTS. MEDICAITONS GIVEN. CALL LIGHT WITHIN REACH. FAMILY AT BEDSIDE.
--- NOTE | 2019-05-20 11:08 | NUR ---
THIS RN TO ROOM TO CHECK ON PT. PT VISITING WITH FAMILY. PT DENIES PAIN AND NAUSEA. DIETARY CALLED FOR REFILL OF FAMILY COMFORT TRAY. PT DENIES ADDITIONAL REQUESTS OR COMPLAINTS. CALL LIGHT WITHIN REACH.
--- NOTE | 2019-05-20 11:52 | NUR ---
PTS' SON IN TO VISIT PT. HE SEEMS TO BE DOING WELL COULD BE EXPECTED. HE IS COMFORTABLE WITH SHARING HIS FELINGS WITH ME. EXTENDED A BLESSING, WILL CONTINUE TO FOLLOW NEEDED
--- NOTE | 2019-05-20 12:07 | NUR ---
MET WITH PTS' DAUGHTER LORENZA. SHE STATED THAT FAMILY IS WORKING TO TRANSITION PT HOME ON HOSPICE. SHE DOESNOT EXPEC PT TO LAST LONG AND PT WANTS TO GO HOME. FAMILY IS HONORING HER WISHES. GAVE ENCOURAGEMENT, WILL BE AVAILABLE FAMILY AND PT NEED.
--- NOTE | 2019-05-20 12:26 | NUR ---
PUMP ALARMING, FLUID INFUSION COMPELTE. NEW BAG HUNG. PT DENIES PAIN BUT STATES SHE HAS "A LITTLE TIGHTNESS" IN HER ABDOMEN. PEG TUBE RETURNED TO GRAVITY DRAINING BAG. <5ML DRAINED TO BAG WHEN TUBE WAS UNCLAMPED. TUBE REMAINS HOOKED TO GRAIVITY DRINAING BAG AT THIS TIME. PT DENIES ADDITIONAL REQUESTS OR COMPLAINTS. CALL LIGHT WITHIN REACH. FAMILY AT BEDSIDE.
--- NOTE | 2019-05-20 12:30 | NUR ---
Call from [facility] they are unable to get orders from . NOtified I will call their office. Called and spoke with district resource officer and she will get another provider to sign orders. Let her know, orders have been faxed by [facility] and should be in their office. Called [facility] and they will call the office to get the orders.
--- NOTE | 2019-05-20 13:09 | NUR ---
Notified in report, pt. has changed her mind and would like to stay in the hospital. Dr. Freitas in and updated. Dr Freitas in to speak with pt and notified patient and family she is unable to remain here for comfort care. SHAMIKA is working with [facility] to set up hospice and for pt. to dc to home tomorrow after equipment has been delivered.
--- NOTE | 2019-05-20 14:43 | NUR ---
THIS RN TO ROOM TO CHECK ON PT. PT RESTING IN BED VISITING WITH FAMILY. PT DENIES PAIN AND NAUSEA AND STATES SHE HAS NO REQUESTS OR COMPLAINTS. <20ML NOTED IN PEG TUBE DRAINAGE BAG. FAMILY AT BEDSIDE. CALL LIGHT WITHIN REACH.
--- NOTE | 2019-05-20 15:00 | NUR ---
Notified son and daughter would like to speak. They have met with hospice and plan is for pt to return to her home tomorrow around 12 n. Hospice will deliver equipment by 11:00 and will be at her home to admit her at 1300. Family are hesitant, but comfortable. Answered questions regarding home care.
--- NOTE | 2019-05-20 16:18 | NUR ---
PT CALL LIGHT ON. PT REQUESTS ASSISTANCE UP TO RESTROOM. 2PA, FWW UP TO RESTROOM. PT SOB WITH AMBULATION. MINIMAL WORDS USED WITH AMBULATION. LINENES CHANGED. PT DECLINES SHOWER AT THIS TIME. PT DENIES PAIN AND NAUSEA. PT REPORTS FEELING COMFORTABLE AND DENIES ADDITIONAL REQUESTS OR COMPLAINTS. ICE WATER REFRESHED. CALL LIGHT WITHIN REACH. FAMILY AT BEDSIDE.
--- NOTE | 2019-05-20 17:55 | NUR ---
PT HERE FOR COMFORT CARE. NO PAIN OR NAUSEA THIS SHIFT. PEG TUBE FLUSHED WITH TAP WATER AND CLAMPED FOR MEDICATION ADMINISTRATION, PT TOLERATED WELL. PEG TUBE OTHERWISE TO GRAVITY DRAIN BAG WITH MINIMAL OUTPUT. 2PA, FWW UP TO RESTROOM NEEDED. NO APPITITE OR PO INTAKE THIS SHIFT. FAMILY DEMONSTRATES COMPTENCY WITH FLUSHING AND WORKING PEG TUBE. PT USES CALL LIGHT APPROPRIATLY. FAMILY AT BEDSIDE FOR MOST OF THIS SHIFT.
--- NOTE | 2019-05-20 18:20 | NUR ---
THIS RN TO ROOM TO CHECK ON PT. PT RESTING WITH EYES CLOSED. RESPIRATIONS EVEN AND UNLABORED. FOOD PROVIDED FOR PTS FAMILY. PTS FAMILY STATE THAT PT APPEARS COMFORTABLE AND DOES NOT HAVE ANY NEEDS AT THIS TIME. CALL LIGHT WITHIN REACH. FAMILY REMAINS AT BEDSIDE.
--- NOTE | 2019-05-20 19:50 | NUR ---
REPORT RECEIVED FROM DAY SHIFT RN. PT RESTING IN BED WITH EYES CLOSED, NAD. DAUGHTER IN ROOM, NO REQUESTS AT THIS TIME. CALL LIGHT IN REACH.
--- NOTE | 2019-05-20 21:40 | NUR ---
PATIENT ASSISTED TO THE RESTROOM A 2PA W/FWW. PATIENT WAS ABLE TO VOID. UPON RETURNING TO BED PATIENT BECAME SHORT OF BREATH. PATIENTS OXYGEN SATURATION WAS DOWN TO 84%. PATIENT TOOK ABOUT 1-2 MINUTES TO RECOVER BACK TO 90%. PATIENTS VITALS TAKEN AND RECORDED. PATIENTS IN TAKE AND OUPUT RECORDED. NO FURTHER NEEDS NOTED. CALL LIGHT IN REACH.
--- NOTE | 2019-05-20 22:15 | NUR ---
ASSESSMENT COMPLETE. PT BACK FROM BR, SOB NOTED. PT STATES "I'M EXHAUSTED". PM MEDS GIVEN WITHOUT DIFFICULTY. PT DENIES PAIN OR NAUSEA. PEG TUBE DRAINING TO GRAVITY. IVF INFUSING WITHOUT ISSUE. CENTRAL LINE HEP LOCKED PER ORDER. BLUE LUMEN WITHOUT BLOOD RETURN, WILL REASSESS. WARM BLANKET PROVIDED PER PT REQUEST. CALL LIGHT IN REACH.
--- NOTE | 2019-05-21 01:27 | NUR ---
CALL LIGHT ANSWERED. PT NEEDS TO VOID, AGREED TO USE BSC. UP WITH 2PA AND FWW. INCREASED SOB AND COUGH WITH ACTIVITY. ASSISTED WITH HARESH CARE. BACK TO BED. REASSESSED CENTRAL LINE, BLUE LUMEN NOW WITH BLOOD RETURN. HEP LOCKED PER ORDER. PT DENIES PAIN OR NAUSEA. HOB ELEVATED. NO OTHER REQUESTS AT THIS TIME. CALL LIGHT WITHTIN REACH.
--- NOTE | 2019-05-21 04:30 | NUR ---
PT RESTING IN BED WITH EYES CLOSED. NO DISTRESS NOTED. IVF INFUSING WITHOUT ISSUE. CALL LIGHT WITHIN REACH.
--- NOTE | 2019-05-21 06:05 | NUR ---
PATIENT ASSISTED TO THE BS A 2PA W/FWW. PATIENT HAS BEEN GETTING PROGRESSIVELY WEAKER. PATIENT WAS BARELY ABLE TO TRANSFER TO BS AND BACK. PATIENT VOIDED. PATIENT BECAME EXTREMELY SOB. HOB ELEVATED. TOOK PATIENT ABOUT 2MIN TO RECOVER FROM BEING SOB. PATIENT HAS NON PRODUCTIVE COUGH. NO NEEDS NOTED. CALL LIGHT IN REACH.
--- NOTE | 2019-05-21 06:27 | NUR ---
PT ON COMFORT CARE. PT A&O THIS SHIFT. INCREASED SOB AND COUGHING WITH ACTIVITY. LUNGS CLEAR. RA. G-TUBE TO GRAVITY. SIPS OF WATER. 2-3 PA WITH FWW. PT HAS AGREED TO BSC. DENIES PAIN AND NAUSEA. CENTRAL LINE, IVF.
--- NOTE | 2019-05-21 07:16 | NUR ---
REPORT RECEIVED FROM JOHN SHULTZ. PT IN BED AFTER A RESTLESS NIGHT. REPORTED THAT A BSC IS NOW NEEDED SHE IS QUITE WEAK AND SOB.
--- NOTE | 2019-05-21 09:45 | NUR ---
SPOKE WITH DAUGHTER LORENZA IN ROOM. DISCUSSED DISCHARGE TODAY AT NOON IN ORDER FOR PATIENT TO BE HOME BY 1PM FOR HOSPICE ADMIT. SHE STATES THEY ARE SUPPOSED TO DELIVER EQUIPMENT TO THE HOUSE THIS MORNING. SHE STATES SHE BOUGHT BEDDING TO FIT THE HOSPITAL BED LAST NIGHT. WE DISCUSSED THE BEST TYPE OF TRANSPORTATION TO GET HOME SAFELY. SHE STATES PATIENT WAS NEEDING 3 PERSON ASSIST TO GET TO [facility] [place] TODAY AND HAS NOT BEEN ABLE TO EVEN SIT UPRIGHT IN A CHAIR FOR THE LAST SEVERAL DAYS. PATIENT IS ASLEEP IN BED DURING THIS CONVERSATION. SHE STATES PATIENT HAS BEEN SLEEPING MOST OF THE TIME FOR THE LAST COUPLE OF DAYS. SHE UNDERSTANDS THAT MEDICARE MIGHT NOT PAY FOR EMS TRANSPORT, BUT THAT WE CAN FILL OUT THE NON-EMERGENT TRANSFER FORM FOR THE EMS TO SUBMIT. SHE IS GOOD WITH THAT. DISCUSSED AT LENGTH THAT SHE SHOULD TALK WITH FAMILY AND FRIENDS TO MAKE GET HELP WITH HIS CARE. SHE STATES THEY ARE WORKING ON GETTING A SCHEDULE MADE UP INCLUDING [employer], TOO. SHE FEELS VERY SURE PATIENT NEEDS A GARCIA CATHETER AT HOME, SHE STATES "IT TAKES THREE PEOPLE TO GET HER UP NOW, I JUST DON'T THINK I'LL HAVE THAT ABILITY AT HOME". WE DISCUSSED THAT HOSPICE CAN PUT ONE IN IF NEEDED. SHE STATES SHE ALREADY SPOKE WITH NURSES HERE AND THEY ARE LOOKING AT DOING IT BEFORE SHE IS DISCHARGED. OTHER QUESTIONS ANSWERED. WILL CONTINUE TO FOLLOW NEEDED. STAFF UPDATED.
--- NOTE | 2019-05-21 10:00 | NUR ---
AFTER SEVERAL ATTEMPTS PT UNABLE TO SWALLOW MORNING PILLS. NAUSEOUS WITH SWALLOWING. FAMILY IN ROOM. SUCTION HOOKED UP AND EXPLAINED TO DAUGHTER HOW TO USE IF PT WANTS FOR SECRETIONS.
--- NOTE | 2019-05-21 10:51 | NUR ---
GARCIA PLACED PER PREVIOUS ORDER FROM [facility] FOR COMFORT. PT UNABLE TO AMBULATE TO RESTROOM OR BSC DUE TO WEAKNESS AND SOB. PT TOLERATED WELL. YELLOW URINE RETURNED.
--- NOTE | 2019-05-21 11:17 | NUR ---
Called OR and requested Dr. Freitas enter dc order when he is finished with surgery. Plan remains for pt to dc at 12, equipment will be delivered at 1100, and Hospice from will meet family at 1300.
--- NOTE | 2019-05-21 13:44 | NUR ---
PT DISCHARGED HOME WITH EMS TRANSPORT. HOSPICE WILL MEET AT THE HOUSE. SUBCLAVIAN REMOVED WNL. MEASURED FOR ACCURACY. OCCULIVE DRESSING PLACED. NO BLEEDING NOTED. PT AND FAMILY ADVISED OF RISKS. GARCIA DRAINING WNKL. BELONGINGS SENT WITH DAUGHTER. VS STABLE.
--- NOTE | 2019-05-21 13:52 | NUR ---
STAFF GETING PT READY TO DC HOME ON HOSPICE. BITTER SWEET FOR PTS' FAMILY. GAVE GRAIN COMMODITY MANAGER AND SUPPORT. PT IS ALERT TO THE SOUND OF MY VOICE. HAD PRAYER WITH HER, WILL FOLLOW NEEDED
== END 2019-05-21 12:25 | disposition hospice, home (50) | DRG 749 ==
LOC: CCU 14:40 → MS 14:40
PROVIDERS: ADMIT Surgery
PROC: 0D1B0ZH Bypass Ileum to Cecum, Open Approach (ICD-10-PCS; principal; 2019-05-07)
PROC: 0WBH0ZX Excision of Retroperitoneum, Open Approach, Diagnostic (ICD-10-PCS; 2019-05-07)
PROC: 0DBU0ZZ Excision of Omentum, Open Approach (ICD-10-PCS; 2019-05-07)
PROC: 0WPF0JZ Removal of Synthetic Substitute from Abdominal Wall, Open Approach (ICD-10-PCS; 2019-05-07)
PROC: 3E0T3BZ Introduction of Anesthetic Agent into Peripheral Nerves and Plexi, Percutaneous Approach (ICD-10-PCS; 2019-05-07)
PROC: 02HV33Z Insertion of Infusion Device into Superior Vena Cava, Percutaneous Approach (ICD-10-PCS; 2019-05-09)
DX: C56.1 Malignant neoplasm of right ovary (principal); C78.7 Secondary malignant neoplasm of liver and intrahepatic bile duct; C78.6 Secondary malignant neoplasm of retroperitoneum and peritoneum; I82.403 Acute embolism and thrombosis of unspecified deep veins of lower extremity, bilateral; E46 Unspecified protein-calorie malnutrition; D68.51 Activated protein C resistance; T82.594A Other mechanical complication of infusion catheter, initial encounter; G89.18 Other acute postprocedural pain; I48.91 Unspecified atrial fibrillation; D63.0 Anemia in neoplastic disease; D72.829 Elevated white blood cell count, unspecified; Z51.5 Encounter for palliative care; Z93.1 Gastrostomy status
CPT/HCPCS: 36415; 71045; 74176; 76942; 80048; 80053; 80061; 82247; 82465; 83615; 84100; 84134; 84478; 84550; 85014; 85025; 85032; 85049; 85610; 85730; 88304; 88305; 88341; 88342; J0131; J0330; J0694; J1100; J1650; J1885; J2250; J2405; J2550; J2704; J2795; J2997; J3475; J7040; J7060; J7120; J7121